=== PATIENT | female | born 2000 | race Caucasian/White ===

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

== ENCOUNTER 2020-05-11 16:54 | Outpatient (REF) | payer BC, SELFPAY ==
[2020-05-12 21:53] LABS: COVID-19 RT-PCR Result NEGATIVE (Negative)
== END 2020-05-11 17:14 ==
LOC: NCHCN 16:54
PROVIDERS: PCP Internal Medicine; Visit Provider Nurse Practitioner Family
DX: J34.89 Other specified disorders of nose and nasal sinuses (principal)
CPT/HCPCS: U0003

== ENCOUNTER 2020-05-21 01:21 | Outpatient (CLI) | payer BC, SELFPAY ==
[2020-05-21 11:14] LABS: Abs Immature Grans 0.03 10^3/uL (0.0-0.06); Absolute Basophil Count 0.03 10^3/uL (0.0-0.2); Absolute Eosinophil Count 0.04 10^3/uL (0.0-0.7); Absolute Lymphocyte Count 2.03 10^3/uL (1.2-3.4); Absolute Monocyte Count 0.45 10^3/uL (0.1-0.8); Basophils % 0.3; Eosinophils % 0.4; HCT 39.6 % (36.0-46.0); Immature Grans % 0.3; Lymphocytes % 22.6; MCH 29.8 pg (27.0-33.0); MCHC 32.8 % (32.0-36.0); MCV 90.8 fL (80-95); MPV 10.4 fL (8.0-11.0); Neutrophils % 71.4; Nucleated RBC 0 %; Platelet Count 296 10^3/uL (130-400); RBC 4.36 10^6/uL (3.93-5.22); RDW 12.4 % (11.7-14.6); RDW-SD 41.1 fL; WBC 8.98 10^3/uL (4.4-10.8)
[2020-05-21 11:21] LABS: Glucose,1 Hr (Glucola) 93 mg/dL (80-140)
[2020-05-21 12:26] LABS: TSH (W/Ref FT4) 0.56 uIU/mL (0.36-3.74)
[2020-05-23 14:52] LABS: Syphilis Total Ab w/Reflex Nonreactive (Nonreactive)
[2020-05-24 10:03] LABS: Hepatitis B Surface Ag Negative (Negative)
[2020-05-24 11:03] LABS: Hepatitis C Ab w Rflx HCV PCR Negative (Negative)
[2020-05-24 11:08] LABS: HIV-1/2 Ag & Ab Screen Negative (Negative)
[2020-05-24 11:37] LABS: Varicella IgG Antibody Positive (See Note)
[2020-05-24 11:43] LABS: Rubella IgG Ab (UVM) Positive (See Note)
== END 2020-05-21 01:41 ==
PROVIDERS: PCP Internal Medicine; Visit Provider Advanced Practice Midwife
DX: Z34.91 Encounter for supervision of normal pregnancy, unspecified, first trimester (principal); Z11.4 Encounter for screening for human immunodeficiency virus [HIV]; Z11.59 Encounter for screening for other viral diseases; Z01.84 Encounter for antibody response examination
CPT/HCPCS: 36415; 80307; 82950; 86787; 86803; 86850; 86900; 86901; 87340; 87389; 87491; 87591; 84443; 85025; 86762; 86780; 87086

== ENCOUNTER 2020-05-21 18:33 | Outpatient (REF) | payer BC, SELFPAY ==
[2020-05-21 17:33] LABS: *AMPHETAMINES SCREEN URINE Negative (Negative); *BARBITURATES SCREEN URINE Negative (Negative); *BENZODIAZEPINES SCREEN URINE Negative (Negative); Cannabinoids THC Negative (Negative); Cocaine Screen,Urine Negative (Negative); METHADONE URINE SCREEN Negative (Negative); OPIATES URINE SCREEN Negative (Negative)
[2020-05-21 17:40] LABS: Tricyclic Antidepressants Negative (Negative)
[2020-05-24 14:26] LABS: GC Result Negative (Negative)
[2020-05-24 16:47] LABS: Chlamydia Result Positive (Negative)
[2020-05-27 13:48] LABS: Buprenorphine Negative; Norbuprenorphine Negative
== END 2020-05-21 18:53 ==
LOC: LBN 18:33
PROVIDERS: PCP Internal Medicine; Visit Provider Advanced Practice Midwife
DX: Z34.91 Encounter for supervision of normal pregnancy, unspecified, first trimester (principal); Z11.3 Encounter for screening for infections with a predominantly sexual mode of transmission
CPT/HCPCS: 80307; 87491; 87591; 87086

== ENCOUNTER 2020-07-06 00:46 | Emergency (ER) | payer BC, SELFPAY ==
[2020-07-06] VITALS (12 sets, daily range): BP systolic 101–115; BP diastolic 55–72; PULSE 70–84; RESP 18; TEMP 36.6; O2SAT 97–100
--- NOTE | 2020-07-06 01:02 | W.ED.GENAD ---
Discharge Plan Disposition Patient Disposition: HOME Condition: Good Discharge Details Clinical Impression: Acute dehydration, Nausea & vomiting, Headache Primary Care Provider: Ananda Sterling ED Provider: Juan Uriostegui Home Meds and New Rx's Prescriptions: New doxylamine-pyridoxine (vit B6) 10-10 mg tablet,delayed release (DR/EC) 1 tab PO BID Qty: 30 RF: 0 Continued prenat.vits,melani,[id number]-gqpmx Tablet 1 tab PO DAILY RF: 0 Discharge Instructions Instructions: Hyperemesis Gravidarum (ED), General Headache (ED) Additional Instructions: At this time your work-up is reassuring. You have been rehydrated with the IV fluids. Please avoid ibuprofen during your . Maximum dose of Tylenol is 1000 mg every 6 hours. Tylenol is a safer alternative to ibuprofen during . Please drink plenty of fluids. Take the doxylamine/pyridoxine to help with your nausea and vomiting. I suspect that your nausea and vomiting is secondary to your , and the dehydration from this led to your headache. Please follow-up closely with your OB specialist. If you notice any worsening of your symptoms, or any new symptoms such as vomiting, diarrhea, fever, chills, shortness of breath, chest pain, numbness, weakness, or fainting , please return immediately to the emergency department for reevaluation. Please follow up with your primary care provider as soon as possible for reassessment and reevaluation. As always, it was a pleasure participating in your medical care today. Referrals: Jossy Flores CNM [[facility] NURSE DATA ENGINEER] - Ananda Sterling MD [Primary Care Provider] - Medical Decision Making This is a pleasant 19-year-old female with a past medical history of pseudotumor cerebri, chronic migraines, who is currently 17 weeks who presents today for evaluation of headache, vomiting. Patient states that for the past 2 months she has had regular vomiting every day during this stage of the . She states that over the last 2 weeks she has had a mild chronic headache, felt similar to her previous headaches however it is progressively gotten worse with her vomiting and lack of fluid intake. She states that her work environment notably worsens it as she is on third shift, she is often subject to loud noises and bright lights, all of which notably worse with her headache. Pain is described as aching pain in the front and temporal region. She denies any neck pain or posterior pain. She denies any vision changes, numbness tingling or weakness. She denies any hematemesis. She did take ibuprofen prior to coming in and this did help her headache. No other complaints at this time. No other modifying factors. The patient denies any headache red flags of worst headache of life, thunderclap headache, neck pain, fever, chills, concerning family history of polycystic kidney disease, Marfan syndrome, Todd-Danlos syndrome, abdominal aortic aneurysm, aortic dissection, or intracranial aneurysm. Physical exam is notably unremarkable. No evidence of neurologic deficit, meningeal signs, or other concerning etiology. Abdomen is nontender nondistended. Mucous membranes are notably dry. Ultrasound of the eyes shows no evidence of papilledema. Symptoms are likely secondary to vomiting secondary to , leading to exacerbation of her chronic migraine condition. We will rehydrate, give Tylenol and Compazine, Benadryl, monitor closely and reassess. I also discussed with her the importance of avoiding ibuprofen during this stage of . 2:21 AM Laboratory work-up is returned and is unremarkable and otherwise reassuring. Electrolytes normal, lipase normal. After after medication patient has near complete resolution of her symptoms, feels well and would like to go home. P.o. trial was given and she tolerated this well with no vomiting. Repeat neurologic exam is unremarkable. Bedside ultrasound shows normal optic nerve, symptoms inconsistent with significantly elevated intracranial pressures. No papilledema that I can appreciate at this time. Patient will be discharged home with pyridoxine/doxylamine prescription. Recommend continued fluids at home. I did discuss with her restarting her acetazolamide if she has any return of her headache even with good vomiting control and good fluid intake. Recommend close follow-up with her OB specialist. Discussed red flags which to return. I have extensively reviewed the treatment plan and discharge instructions with the patient. I have addressed all patient concerns at this time. The patient was made aware of what symptoms to monitor for that would warrant a return to the emergency department. Discussed the plan with the patient, they demonstrate verbal understanding and agreement with our assessment and plan at this time. The documentation in this chart was dictated using [employer] dictation software. Please excuse any dictation errors. Ocular US Exam type: diagnostic\par Indication for exam: vision complaint Views obtained: Eye transverse and longitudinal Findings and interpretations: all views were adequate. Retinal contour was normal. Vitreous body was anechoic. Lens was well positioned. No evidence of lens dislocation or retinal detachment. Optic nerve was measured and found to be less than 5mm. No evidence of papilledema The patient tolerated the procedure well and there were no complications. HPI General Date/Time Provider Initiated Documentation: 07/06/20 00:47. HPI Narrative: This is a pleasant 19-year-old female with a past medical history of pseudotumor cerebri, chronic migraines, who is currently 17 weeks who presents today for evaluation of headache, vomiting. Patient states that for the past 2 months she has had regular vomiting every day during this stage of the . She states that over the last 2 weeks she has had a mild chronic headache, felt similar to her previous headaches however it is progressively gotten worse with her vomiting and lack of fluid intake. She states that her work environment notably worsens it as she is on third shift, she is often subject to loud noises and bright lights, all of which notably worse with her headache. Pain is described as aching pain in the front and temporal region. She denies any neck pain or posterior pain. She denies any vision changes, numbness tingling or weakness. She denies any hematemesis. She did take ibuprofen prior to coming in and this did help her headache. No other complaints at this time. No other modifying factors. The patient denies any headache red flags of worst headache of life, thunderclap headache, neck pain, fever, chills, concerning family history of polycystic kidney disease, Marfan syndrome, Todd-Danlos syndrome, abdominal aortic aneurysm, aortic dissection, or intracranial aneurysm. Related Data Home Medications Medication Instructions Recorded Confirmed prenat.vits,melani,[id number]-hmor-xfroc 1 tab PO DAILY 05/06/20 07/06/20 doxylamine-pyridoxine (vit B6) 1 tab PO BID #30 tab 07/06/20 Previous Rx's Medication Instructions Recorded doxylamine-pyridoxine (vit B6) 1 tab PO BID #30 tab 07/06/20 Allergies Allergy/AdvReac Type Severity Reaction Status Date / Time No Known Allergies Allergy Verified 07/06/20 01:05 General CHATO: 4 Review of Systems All systems reviewed & are unremarkable except as noted in HPI and below PFSH Medical History Idiopathic intracranial hypertension Stopped Acetazolamide (Diamox) with +UPT. H/A is sx of ICH. Migraine headache without aura Obesity Surgical History Hx of tonsillectomy Family History Father Well adult Mother Well adult Sister IIH (idiopathic intracranial hypertension) Social History Smoking/Tobacco Use Status: Never Smoking risk assessment performed?: Yes Alcohol Intake: never Drug use: Never Household members: family and other Details: 04/2020.BF Hoopa. together 3mo prior to . Number of Children: 0 Education Level: high school current occupation: Lived in [place] x1yr. Returned a few months ago. Pets and animals: Yes Pets and animals: dog(s) What is your relationship status?: never Panel score (0-1 are the most socially isolated patients): 0 What type of physical activity do you participate in: none Seatbelt use: always Do you feel safe at home: Yes Do you feel safe in your relationship?: Yes History History 1 Para Hx # Term Pregnancies Multiple births Hx # Pregnancies Ectopic pregnancies AB induced Hx Number of Living Children AB spontaneous Exam Narrative Exam Narrative: 1.Const: Well-nourished, Well-developed, appearing stated age 2.Eyes: PERRL, no conjunctival injection, and symmetrical lids. 3.ENT: Atraumatic external nose and ears. Notably dry MM. Neck: Symmetric, trachea midline, No thyromegaly. Patient demonstrates good movement of cervical neck. There is no nuchal rigidity, no nuchal tenderness. Patient is able to flex the neck without any difficulty or significant pain. Negative Kernig's and Brudzinski sign. 4.CVS: +S1/S2, No murmurs or gallops. Peripheral pulses 2+ and equal in all extremities. Brisk capillary refill in all extremities. 5.RESP: Unlabored respiratory effort. Clear to auscultation bilaterally. No wheezes rales or rhonchi 6.GI: Soft, Nontender/Nondistended, No hepatosplenomegaly. No guarding or rebound. 7.MSK: Normocephalic/Atraumatic, Extremities w/o deformity or ttp No cyanosis or clubbing, Normal movement of all extremities 8.Skin: Warm, Dry. No rashes or lesions. 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 Sensation grossly intact, no focal neurologic deficits. All 6 cardinal planes of vision are fully intact. No evidence of rotatory or vertical nystagmus. The patient demonstrated a normal hqmxit-wbkv-judmhi, good dexterity. There was no evidence of dysdiadochokinesia. Patient was able to ambulate without difficulty. There was no wide-based gait. Romberg testing was normal. Ccej-rd-mxbw testing was normal. Sensation was intact bilaterally as well as muscle strength bilaterally for all extremities. Patient was able to verbalize butter cup with no slurring, or miss pronunciation. 10.Psych: (AAO) x3. Appropriate mood and affect
[2020-07-06 01:16] LABS: Abs Immature Grans 0.03 10^3/uL (0.0-0.06); Absolute Basophil Count 0.02 10^3/uL (0.0-0.2); Absolute Monocyte Count 0.61 10^3/uL (0.1-0.8); Absolute Neutrophil Count 8.27 10^3/uL (1.2-6.7); Basophils % 0.2; Eosinophils % 0.6; HCT 35.7 % (36.0-46.0); Immature Grans % 0.3; Lymphocytes % 17.4; MCH 30.2 pg (27.0-33.0); MCHC 33.6 % (32.0-36.0); MCV 89.9 fL (80-95); Monocytes % 5.6; Neutrophils % 75.9; Nucleated RBC 0 %; Platelet Count 242 10^3/uL (130-400); RBC 3.97 10^6/uL (3.93-5.22); RDW-SD 42.8 fL; WBC 10.89 10^3/uL (4.4-10.8)
[2020-07-06] MEDS: Normal Saline 1,000 ML 1000 ML IV (01:17)
[2020-07-06 01:18] LABS: Absolute Eosinophil Count 0.07 10^3/uL (0.0-0.7); Absolute Lymphocyte Count 1.89 10^3/uL (1.2-3.4)
[2020-07-06] MEDS: diphenhydrAMINE 50 MG/ML VIAL 25 MG IVP (01:18)
[2020-07-06] MEDS: Prochlorperazine 10 MG/2 ML VIAL IVP (01:20)
[2020-07-06] MEDS: ACETAMINOPHEN 1,000 MG/100 ML BTL 400 MG IVPB (01:23)
[2020-07-06 01:30] LABS: ALT 32 U/L (14-59); AST 12 U/L (15-37); Alkaline Phosphatase 56 U/L (46-116); Anion Gap 11.7 mmol/L (3-11); BUN 8 mg/dL (7-18); Bilirubin, Total 0.2 mg/dL (0.2-1.0); CO2 22.3 mmol/L (21.0-32.0); CREATININE 0.5 mg/dL (0.55-1.02); Calcium 8.8 mg/dL (8.5-10.1); Chloride 103 mmol/L (98-107); Glucose 93 mg/dL (74-106); Lipase 79 U/L (73-393); Potassium 3.6 mmol/L (3.5-5.1); Sodium 137 mmol/L (136-145); Total Protein 7.1 g/dL (6.4-8.2)
== END 2020-07-06 02:35 | disposition home or self-care (01) ==
PROVIDERS: Emergency Provider Student in an Organized Health Care Education/Training Program; PCP Internal Medicine
DX: O99.352 Diseases of the nervous system complicating pregnancy, second trimester (principal); O21.1 Hyperemesis gravidarum with metabolic disturbance; Z3A.17 17 weeks gestation of pregnancy
CPT/HCPCS: 36415; 80053; 83690; 96361; 96365; 96375; 99284; 85025; J0131; J0780; J1200

== ENCOUNTER 2020-07-16 03:38 | Outpatient (CLI) | payer BC, SELFPAY ==
--- NOTE | 2020-07-16 06:45 | DI.US_ITS ---
EXAM: US OB 2-3 TRIMESTER CLINICAL HISTORY: ,z34.90. TECHNIQUE: Transabdominal obstetrical ultrasound performed. COMPARISON: No exams were available for comparison FINDINGS: Transabdominal obstetrical ultrasound performed. There is limited resolution of anatomy due to maternal body habitus. FINDINGS: Number of fetuses: One. position: Vertex. heart rate: 137 bpm. Placental grade: 1 Placental location: Posterior. No evidence of previa. BIOMETRIC DATA: BPD: 40 millimeters, 18+ 2 weeks HC: 152 millimeters, 18+ 1 weeks AC: 123 millimeters, 18+ 0 weeks FL: 26 millimeters, 18+ 0 weeks Cisterna Magna: 3.8 millimeters Cerebellum: 1.8 cm EFW: 221 grms 24 percentile Composite Age: 18+ 1 weeks EDC by US: 16 December 2020 Amniotic fluid : . Amount of fluid is visually within normal limits. ANATOMICAL SURVEY: Four-chambered heart: Unremarkable. LVOT: Unremarkable. RVOT: Unremarkable. Left-sided stomach: Unremarkable. urinary bladder: Unremarkable. Bilateral kidneys: Unremarkable. Three-vessel cord: Unremarkable. Cord insertion: Unremarkable. Umbilical artery velocity: Unremarkable. Posterior fossa:Unremarkable. ventricles: Unremarkable. nose: Unremarkable. lips: Unremarkable. palate: Unremarkable. spine: Unremarkable. Two arms and two legs: Unremarkable. IMPRESSION: 1. Single live intrauterine gestation measuring 18+ 1 weeks 2. Normal anatomic survey. Resolution of anatomy is somewhat limited due to maternal bod y habitus. DATA REPOSITORY:
--- NOTE | 2020-08-12 09:09 | ANES_ITS ---
Date of service: 08/12/20 Time of Service: 09:09 Anesthesia Note Report Anesthesia Note: Called [facility] Dr. Tapia to discuss Radha's upcoming delivery here at [facility]. Per his note on 06/04/20 she is a candidate for regional anesthesia techniques for delivery, which was confirmed again in this phone call. My main concern was in regards to the last paragraph of his note that discusses her potential upcoming move to [place] and his mentioning a tertiary care center for her delivery. He states that she does not need to deliver are a tertiary care facility, but if the smaller [facility] hospitals are uncomfortable with her than a tertiary care center would be reasonable. We will meet with her tomorrow to discuss delivery here at [facility].
== END 2020-07-16 03:58 ==
PROVIDERS: PCP Internal Medicine; Visit Provider Advanced Practice Midwife
DX: Z34.92 Encounter for supervision of normal pregnancy, unspecified, second trimester (principal)
CPT/HCPCS: 76805

== ENCOUNTER 2020-11-24 12:37 | Outpatient (REF) | payer BC, SELFPAY ==
[2020-11-24 13:55] LABS: *AMPHETAMINES SCREEN URINE Negative (Negative); *BARBITURATES SCREEN URINE Negative (Negative); *BENZODIAZEPINES SCREEN URINE Negative (Negative); Cannabinoids THC Negative (Negative); Cocaine Screen,Urine Negative (Negative); METHADONE URINE SCREEN Negative (Negative); OPIATES URINE SCREEN Negative (Negative)
[2020-11-24 14:01] LABS: Tricyclic Antidepressants Negative (Negative)
[2020-12-01 10:49] LABS: Buprenorphine Negative ng/mL (Cutoff: 5.0)
== END 2020-11-24 12:38 | disposition home or self-care (01) ==
LOC: LBN 12:37
PROVIDERS: PCP Internal Medicine; Visit Provider Obstetrics & Gynecology
DX: Z34.93 Encounter for supervision of normal pregnancy, unspecified, third trimester (principal); Z36.85 Encounter for antenatal screening for Streptococcus B; Z3A.37 37 weeks gestation of pregnancy
CPT/HCPCS: 80307; 87081

== ENCOUNTER 2020-11-24 12:40 | Outpatient (CLI) | payer BC, SELFPAY ==
[2020-11-24 13:06] LABS: Abs Immature Grans 0.07 10^3/uL (0.0-0.06); Absolute Basophil Count 0.02 10^3/uL (0.0-0.2); Absolute Eosinophil Count 0.06 10^3/uL (0.0-0.7); Absolute Neutrophil Count 9.24 10^3/uL (1.2-6.7); Basophils % 0.2; Eosinophils % 0.5; HGB 10.3 g/dL (11.2-15.7); Immature Grans % 0.6; Lymphocytes % 16.2; MCHC 31.2 % (32.0-36.0); MCV 89.7 fL (80-95); Monocytes % 7.5; Nucleated RBC 0 %; Platelet Count 264 10^3/uL (130-400); RBC 3.68 10^6/uL (3.93-5.22); RDW 14.1 % (11.7-14.6); RDW-SD 45.9 fL; WBC 12.32 10^3/uL (4.4-10.8)
[2020-11-24 13:07] LABS: Absolute Monocyte Count 0.92 10^3/uL (0.1-0.8)
[2020-11-24 13:23] LABS: Glucose,1 Hr (Glucola) 109 mg/dL (80-140)
[2020-11-24 13:28] LABS: ALT 17 U/L (14-59); AST 8 U/L (15-37); Albumin 2.4 g/dL (3.4-5.0); Alkaline Phosphatase 106 U/L (46-116); Anion Gap 10.1 mmol/L (3-11); BUN 6 mg/dL (7-18); Bilirubin, Total 0.1 mg/dL (0.2-1.0); CO2 23.9 mmol/L (21.0-32.0); CREATININE 0.4 mg/dL (0.55-1.02); Calcium 9.1 mg/dL (8.5-10.1); Chloride 105 mmol/L (98-107); Glucose 110 mg/dL (74-106); Potassium 3.7 mmol/L (3.5-5.1); Sodium 139 mmol/L (136-145); Total Protein 6.5 g/dL (6.4-8.2)
== END 2020-11-24 12:41 | disposition home or self-care (01) ==
LOC: LBO 12:40
PROVIDERS: PCP Internal Medicine; Visit Provider Obstetrics & Gynecology
DX: O09.33 Supervision of pregnancy with insufficient antenatal care, third trimester (principal); O26.893 Other specified pregnancy related conditions, third trimester; O36.013 Maternal care for anti-D [Rh] antibodies, third trimester; Z01.84 Encounter for antibody response examination; Z67.91 Unspecified blood type, Rh negative; Z3A.37 37 weeks gestation of pregnancy
CPT/HCPCS: 36415; 80053; 82950; 86850; 86900; 86901; 85025; 86870

== ENCOUNTER 2020-11-25 12:43 | Outpatient (CLI) | payer BC, SELFPAY ==
[2020-11-25 12:58] VITALS: BP 117/73; PULSE 86; TEMP 37.3
[2020-11-25 13:09] VITALS: BP 119/73; PULSE 86
--- NOTE | 2020-11-25 13:36 | W.OBNST ---
Date of service: 11/25/20 Time of Service: 13:36 NST Evaluation Reason for NST Reasons for Nonstress Test: GESTATIONAL HYPERTENSION Gestational Age Gestational Age in Weeks and Days: 37 Weeks and 2Days Test and Monitor Explained Test/Monitor Explained: Test Explained, Monitor Explained and Patient Verbalized Understanding Vital Signs Blood Pressure: 117/73 Pulse: 86 Temperature: 99.1 F NST Information Date on Monitor: 11/25/20 Time on Monitor: 12:50 Date off Monitor: 11/25/20 Time off Monitor: 13:20 Total Time on Monitor: 30 NST Interventions: Reposition Patient NST Evaluation Patient States Movement: Present FHR Baseline: 140 Variability: Moderate 6-25 bpm Accelerations: 15x15 Decelerations: None NST Results: Reactive Note NST Note Note: Patient seen for testing with nonstress test. She returned to our care at 37 weeks and 1 day yesterday in the office. Laboratory studies performed are normal. She did have a mildly elevated blood pressure. Baby's been moving and active. Blood pressure is stable today. NST is reactive with a category 1 strip. She has follow-up ointment scheduled for ultrasound, ophthalmology visit, and referral has been made to maternal- medicine for possible delivery at [facility] Reviewed and Verified by: Laura Payton
[2020-11-25 13:37] VITALS: BP 117/73; PULSE 86; TEMP 37.3
== END 2020-11-25 13:25 | disposition home or self-care (01) ==
LOC: BCD 12:43 → OBS 12:49
PROVIDERS: PCP Internal Medicine; Visit Provider Obstetrics & Gynecology
DX: O13.3 Gestational [pregnancy-induced] hypertension without significant proteinuria, third trimester (principal); Z3A.37 37 weeks gestation of pregnancy
CPT/HCPCS: 59025

== ENCOUNTER 2020-11-29 01:27 | Outpatient (CLI) | payer BC, SELFPAY ==
--- NOTE | 2020-11-29 07:30 | DI.US_ITS ---
Exam(s) US OB WANDY WEIGHT EXAM: US OB WANDY WEIGHT CLINICAL HISTORY: Growth, WANDY, position,G93.2,Z34.90,o09.30. TECHNIQUE: Transabdominal obstetrical ultrasound was performed. COMPARISON: US US OB 2-3 TRIMESTER from 07/16/2020 FINDINGS: There is a single viable intrauterine gestation with cardiac activity identified-143 bpm The fetus is presently in cephalic position with the spine pointing anterior left.. Amniotic fluid: There is a normal amount of amniotic fluid with an WANDY of 16.2cm. Placental location: The placenta is posterior left, grade 2-3,with no evidence of placenta previa.The distance from cord insertion to the margin the placentas 5.[address] this at approximately 37 weeks and 6 days gestational age, implying SAI of December 14, 2020. BPD measures 38 weeks and 5 days HC measures 37 weeks and 5 days AC measures 36 weeks and 3 days FL measures 38 weeks and 2 days Estimated weight is 3166 gm-7 pound 0 ounce Fetus is at the 46th percentile on the Hadlock scale. IMPRESSION:: Viable 3rd trimester gestation, as described above. DATA REPOSITORY:
== END 2020-11-29 01:47 ==
PROVIDERS: PCP Internal Medicine; Visit Provider Obstetrics & Gynecology
DX: O09.33 Supervision of pregnancy with insufficient antenatal care, third trimester; O26.893 Other specified pregnancy related conditions, third trimester; G93.2 Benign intracranial hypertension; Z3A.37 37 weeks gestation of pregnancy
CPT/HCPCS: 76816

== ENCOUNTER 2021-08-23 15:52 | Outpatient (REF) | payer MEDICAID, SELFPAY ==
--- NOTE | 2021-08-23 15:15 | PAPFT_PTH ---
PATIENT: Radha Edmondson LOC: [facility] U#:[id number] AGE/SX: / ROOM: RE08/23/[address]: Josefina Myers MD : 2000 BED: DIS: 08/23/2021 SPEC #: [id number] RECD: 08/23/21 17:41 STATUS: MARY REQ #: [id number] JOVANY: 08/23/21 15:[address]: Josefina Myers DEPT: [facility] Cytology RECD BY: Lupe Awad ENTERED: 08/23/21 17:42 SP TYPE: PAPFT OTHR DR: Ananda Sterling Tissues: 1 - CX/ENDOCX FOR PAP SMEARS Procedures: PAP THIN PREP/UVM Screening Comments: [id number] (CHLAMYDIA/GC)
[2021-08-24 14:16] LABS: Chlamydia Result Negative (Negative); GC Result Negative (Negative)
== END 2021-08-23 15:53 | disposition home or self-care (01) ==
LOC: LBN 15:52
PROVIDERS: PCP Internal Medicine; Visit Provider Obstetrics & Gynecology
DX: Z11.3 Encounter for screening for infections with a predominantly sexual mode of transmission (principal); Z12.4 Encounter for screening for malignant neoplasm of cervix
CPT/HCPCS: 87491; 87591; 88142

== ENCOUNTER 2021-12-07 03:19 | Outpatient (CLI) | payer MEDICAID, SELFPAY ==
[2021-12-07 16:11] LABS: Kit/Specimen SENT
[2021-12-07 16:16] LABS: Glucose,1 Hr (Glucola) 109 mg/dL (80-140)
[2021-12-07 16:25] LABS: Abs Immature Grans 0.02 10^3/uL (0.0-0.06); Absolute Basophil Count 0.03 10^3/uL (0.0-0.2); Absolute Eosinophil Count 0.05 10^3/uL (0.0-0.7); Absolute Lymphocyte Count 1.51 10^3/uL (1.2-3.4); Absolute Monocyte Count 0.52 10^3/uL (0.1-0.8); Absolute Neutrophil Count 6.13 10^3/uL (1.2-6.7); Basophils % 0.4; Eosinophils % 0.6; HCT 36.7 % (36.0-46.0); HGB 12.2 g/dL (11.2-15.7); Immature Grans % 0.2; Lymphocytes % 18.3; MCH 27.8 pg (27.0-33.0); MCHC 33.2 % (32.0-36.0); MCV 84 fL (80-95); MPV 10.3 fL (8.0-11.0); Monocytes % 6.3; Neutrophils % 74.2; Platelet Count 262 10^3/uL (130-400); RBC 4.39 10^6/uL (3.93-5.22); RDW-SD 45.7 fL; WBC 8.26 10^3/uL (4.4-10.8)
[2021-12-07 19:40] LABS: *AMPHETAMINES SCREEN URINE Negative (Negative); *BARBITURATES SCREEN URINE Negative (Negative); *BENZODIAZEPINES SCREEN URINE Negative (Negative); Cannabinoids THC Negative (Negative); Cocaine Screen,Urine Negative (Negative); METHADONE URINE SCREEN Negative (Negative); OPIATES URINE SCREEN Negative (Negative)
[2021-12-07 19:41] LABS: Tricyclic Antidepressants Negative (Negative)
[2021-12-08 08:15] LABS: Hepatitis B Surface Ag Negative (Negative)
[2021-12-08 08:58] LABS: Hepatitis C Ab w Rflx HCV PCR Negative (Negative)
[2021-12-08 09:12] LABS: HIV-1/2 Ag & Ab Screen Negative (Negative)
[2021-12-08 10:56] LABS: Varicella IgG Antibody Positive (See Note)
[2021-12-08 11:00] LABS: Rubella IgG Ab (UVM) Positive (See Note)
[2021-12-08 19:08] LABS: Syphilis IgG w/Reflex Nonreactive (Nonreactive)
[2021-12-15 15:34] LABS: Buprenorphine Negative ng/mL (Cutoff: 5.0); Norbuprenorphine Negative ng/mL (Cutoff: 2.5)
[2021-12-16 16:24] LABS: Result Summary NEGATIVE; Specimen WB Whole Blood
== END 2021-12-07 03:20 | disposition home or self-care (01) ==
LOC: LBO 03:20
PROVIDERS: PCP Internal Medicine; Visit Provider Advanced Practice Midwife
DX: O99.351 Diseases of the nervous system complicating pregnancy, first trimester (principal); Z3A.11 11 weeks gestation of pregnancy; G93.2 Benign intracranial hypertension
CPT/HCPCS: 36415; 80307; 82950; 86787; 86803; 86850; 86900; 86901; 87340; 87389; 81220; 84443; 85025; 86762; 86780; 87086

== ENCOUNTER 2021-12-21 16:30 | Outpatient (REF) | payer MEDICAID, SELFPAY ==
[2021-12-23 15:25] LABS: Chlamydia Result Negative (Negative); GC Result Negative (Negative)
== END 2021-12-21 16:31 | disposition home or self-care (01) ==
LOC: LBN 16:30
PROVIDERS: PCP Internal Medicine; Visit Provider Obstetrics & Gynecology
DX: Z34.92 Encounter for supervision of normal pregnancy, unspecified, second trimester (principal)
CPT/HCPCS: 87491; 87591

== ENCOUNTER 2022-01-17 14:56 | Outpatient (CLI) | payer MEDICAID, SELFPAY ==
[2022-01-20 10:57] LABS: AFP 19.9 ng/mL; Cigarette smoking status non-Smoker; GA used in risk estimate Scan estimate; IVF Pregnancy No; Initial or repeat testing Initial testing; Insulin dependent diabetes No; Maternal Weight 310 lbs; Number of Fetuses 1; Prev Pregnancy w/NTD No; RECOMMENDED FOLLOW UP None.; Results Summary Normal risk
== END 2022-01-17 14:57 | disposition home or self-care (01) ==
LOC: LBO 14:57
PROVIDERS: PCP Internal Medicine; Visit Provider Obstetrics & Gynecology
DX: Z34.92 Encounter for supervision of normal pregnancy, unspecified, second trimester (principal)
CPT/HCPCS: 36415; 82105

== ENCOUNTER → 2022-03-31 01:06 | Outpatient (CLI) | payer MEDICAID, SELFPAY ==
--- NOTE | 2022-03-31 07:30 | DI.US_ITS ---
Exam(s) US OB WANDY WEIGHT EXAM: US OB WANDY WEIGHT CLINICAL HISTORY: growth and WANDY at 28 weeks,O93.2.z34.90,E66.01. COMPARISON: None TECHNIQUE: Transabdominal obstetrical ultrasound performed. FINDINGS: Sonographic images demonstrate a single intrauterine gestation in cephalic position. heart rate motion is Dopplered at: 144 bpm. Placenta: Posterior Biometric measurements correspond to 29 weeks 0 days and an EDC of 16 June 2022 Estimated weight 1433 grams which is above the 97th percentile. Amniotic fluid index: 19.7 cm. Largest pocket of fluid measures 7.5 cm. Amount of fluid is within n ormal limits. IMPRESSION: size and weight are measuring slightly above the expected range for dates. DATA REPOSITORY:
== END ==
PROVIDERS: PCP Internal Medicine; Visit Provider Advanced Practice Midwife
DX: Z34.92 Encounter for supervision of normal pregnancy, unspecified, second trimester
CPT/HCPCS: 76816

== ENCOUNTER 2022-04-07 01:39 | Outpatient (CLI) | payer MEDICAID, SELFPAY ==
[2022-04-07 12:10] LABS: Abs Immature Grans 0.05 10^3/uL (0.0-0.06); Absolute Basophil Count 0.02 10^3/uL (0.0-0.2); Absolute Eosinophil Count 0.08 10^3/uL (0.0-0.7); Absolute Monocyte Count 0.58 10^3/uL (0.1-0.8); Absolute Neutrophil Count 7.95 10^3/uL (1.2-6.7); Basophils % 0.2; Eosinophils % 0.7; HCT 34.1 % (36.0-46.0); Immature Grans % 0.5; Lymphocytes % 19.5; MCH 28.3 pg (27.0-33.0); MCHC 32.3 % (32.0-36.0); MCV 88 fL (80-95); MPV 10.2 fL (8.0-11.0); Monocytes % 5.4; Neutrophils % 73.7; Platelet Count 248 10^3/uL (130-400); RBC 3.89 10^6/uL (3.93-5.22); RDW 14.4 % (11.7-14.6); RDW-SD 45.7 fL; WBC 10.78 10^3/uL (4.4-10.8)
[2022-04-07 12:24] LABS: Glucose,1 Hr (Glucola) 129 mg/dL (80-140)
== END 2022-04-07 01:40 | disposition home or self-care (01) ==
LOC: LBO 01:39
PROVIDERS: PCP Internal Medicine; Visit Provider Obstetrics & Gynecology
DX: E66.01 Morbid (severe) obesity due to excess calories (principal); O26.893 Other specified pregnancy related conditions, third trimester; O99.213 Obesity complicating pregnancy, third trimester; Z67.91 Unspecified blood type, Rh negative
CPT/HCPCS: 36415; 82950; 86850; 90384; 85025

== ENCOUNTER → 2023-03-01 13:12 | Outpatient (CLI) | payer MEDICAID, SELFPAY ==
--- NOTE | 2023-03-01 | DI.RAD_ITS ---
Exam(s) XR KNEE RT 3V AP,LAT,MATT EXAM: XR KNEE RT 3V AP,LAT,MATT CLINICAL HISTORY: RT KNEE PAIN [id number] ? JOINT SPACE ABNORMALITY. TECHNIQUE: 2D digital imaging was performed of the right knee. Three views obtained. AP, lateral an d PA tunnel views were obtained. COMPARISON: No exams were available for comparison FINDINGS: BONES: No acute fracture is present. No bony destructive lesion is seen. There is a 7.7 x 5.4 cm lyti c lesion in the lateral femoral condyle of the right femur. It has well-circumscribed thinly sclerot ic borders. No pathologic fracture is seen. No periosteal reaction is identified. JOINTS: The knee is normally aligned. No joint effusion is seen. SOFT TISSUE: Normal. IMPRESSION: 1. No acute fracture or dislocation. No significant degenerative changes are seen in the knee. 2. 7.7 x 5.7 cm well-circumscribed lytic lesion in the lateral femoral condyle of the right femur. N o periosteal reaction or pathologic fracture is identified. The finding has benign features. CT and or MRI may be obtained for further evaluation. If there are prior for examinations, they may be sub mitted for comparison. An addendum will be issued at that time. DATA REPOSITORY: RADIATION DOSE DELIVERED:
== END ==
PROVIDERS: PCP Internal Medicine; Visit Provider Physician Assistant Medical
DX: M25.561 Pain in right knee (principal); M89.251 Other disorders of bone development and growth, right femur
CPT/HCPCS: 73562

== ENCOUNTER 2023-03-07 08:51 | Emergency (ER) | payer MEDICAID, SELFPAY ==
[2023-03-07] VITALS (12 sets, daily range): BP systolic 125–145; BP diastolic 68–101; PULSE 65–79; RESP 24; TEMP 36.8; O2SAT 94–100
--- NOTE | 2023-03-07 08:59 | W.ED.GENAD ---
Discharge Plan Discharge Details Chief Complaint: Orthopedic Clinical Impression: Pathological fracture of right femur Primary Care Provider: Ananda Sterling ED Provider: Juan Reynolds Home Meds and New Rx's Prescriptions: No Action No Known Home Meds Medical Decision Making This dictation utilizes [id number] dictation software and may contain unedited grammatical errors. 22 y/o F presents to ED today with a chief complaint of trip & fall, acute R knee pain, chronic pain and instability noted. Onset and characteristics include exquisite pain with any movement, no obvious deformity, NV intact distally. Patient has relevant history of morbid obesity. Family and social history: noncontributory. Pertinent exam findings / vital signs include R knee exquisite tenderness, no hip or calf/foot pain, NV intact distal R LE, no obvious lateral displacement of patella- difficult with body habitus to discern. Differential / pathologies of concern include patellar dislocation, fracture, internal ligamentous knee injury, knee sprain/strain. Diagnostic studies of: -XR R Knee - shows fracture in her known tumor, spoke with our Orthopaedist Dr. uF who recommends MRI R Knee w & w/o Contrast, consult with Ortho/Oncology- possible Giant Cell Tumor -hCG qual. serum, not -MRI R Knee w & w/o contrast - discussed with Dr. Fu, pathologic fracture of distal femur through tumor, recommends [facility] transfer for management / surgery. Interventions of: -1g IV APAP, 15mg IV Toradol, 50mcg IV fentanyl, 4mg IV Zofran. 1mg IV Dilaudid at hour 2 pre-MRI. -4mg ondansetron q8hr PRN, 1000mg APAP q6hr PRN, 10mg ketorlac q6hr PRN, 0.5mg hydromorphone q4hr PRN ordered while awaiting transfer decision. ED Course: Patient required multiple rounds of analgesia here in the department and received 1 g of IV Tylenol as well as Toradol, fentanyl prior to x-ray and Zofran. She was still having significant pain and was given 1 mg of Dilaudid prior to MRI. She then was resting comfortably as long as the knee was immobilized. I did order knee immobilizer. She states that she will not be able to road test with crutches. Spoke with Dr. Salas who recommends transfer to [facility] for orthopedic oncology admission, patient was comfortable with this disposition. *[facility] has no capacity, did call [facility] transfer center at [phone], awaiting callback. Dr Fu is in communication with Dr. Pathak of [facility] Ortho who could see the patient as outpatient, but she is in too much pain to even attempt crutching and does not feel she is safe to go home. Other options would include [facility], or any [facility] Patient signed out to oncoming provider Karis Mueller at shift-change. Holding PO intake until definitive surgical decision made. Patient has requested meals multiple times. Findings consistent with pathologic fracture of distal right femur involving her known bone lesion- likely giant cell tumor, otherwise no NV compromise in R LE. Disposition of Pathologic Fracture of Right Femur. 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 Patient verbalized understanding of the plan and return to ED criteria and engaged in shared decision making. Medical Records Medical records reviewed: Yes I reviewed the patient's medical records. Imaging Data Radiologic Study: Imaging: X-Ray Radiologist's impression: XR KNEE RT 3V AP,LAT,MATT EXAM: XR KNEE RT 3V AP,LAT,MATT CLINICAL HISTORY: fall, instability, R knee exquisite tenderness. TECHNIQUE: 2D digital imaging was performed of the right knee. Three views obtained. AP, lateral and PA tunnel views were obtained. COMPARISON: No exams were available for comparison FINDINGS: BONES: No acute fracture is present. There is again seen a lytic lesion involving the lateral femoral condyle. There is destruction of the cortex seen both superiorly and laterally on the AP view suspicious for new pathologic fracture. JOINTS: The knee is normally aligned. There is also now a joint effusion present. SOFT TISSUE: Normal. IMPRESSION: 1. Pathologic fracture through the lytic lesion involving the lateral femoral condyle. 2. Moderate joint effusion. 3. Lytic distal femoral lesion as described before. Differential considerations include aneurysmal bone cyst, giant cell tumor or simple bone cyst among other etiologies. CT and MRI should be considered for further evaluation. Radiologic Study #2: Imaging: MRI Radiologist's impression: MR LOWER JOINT RT WO/W EXAM: MR LOWER JOINT RT WO/W CLINICAL HISTORY: R knee - tumor fracture. TECHNIQUE: Multiplanar multisequence MRI of the right knee was performed. CONTRAST MATERIAL: IV Contrast: 20 mL of Dotarem contrast administered. COMPARISON: CR XR KNEE RT 3V AP,LAT,MATT from 03/01/2023 CR XR KNEE RT 3V AP,LAT,MATT from 03/07/2023 FINDINGS: BONES/JOINTS: There is a 5.1 AP by 4.5 transverse by 6.6 craniocaudad cm well-circumscribed lesion in the lateral femoral condyle. It is intermediate signal on the T2 weighted images and hypointense on the T1 weighted images. No fluid fluid levels are identified. There is no associated soft tissue mass. There is heterogeneous enhancement following contrast administration. It has a longitudinal orientation and extends into the intercondylar notch. The fracture is comminuted, particularly anteriorly and inferiorly. There is a large hemarthrosis. No other osseous lesions are seen. No other fractures appreciated. MUSCULOTENDINOUS STRUCTURES: The muscles show normal signal and size. No muscular fatty atrophy. SOFT TISSUES: Unremarkable. OTHER FINDINGS: None. IMPRESSION: 1. 5.1 x 4.5 x 6.6 cm well-circumscribed lesion in the distal lateral femoral condyle. Differential considerations include giant cell tumor or bone cyst. Neoplastic process is felt to be less likely. 2. Pathologic fracture involving the distal femur through the bony lesion extending inferiorly into the intercondylar notch. 3. Hemarthrosis. HPI General Date/Time Provider Initiated Documentation: 03/07/23 08:55. HPI Narrative: 22 year-old female presents to ED today by [facility] with a chief complaint of R knee pain, tripped and knee gave out with onset 40 minutes prior to arrival. Patient has been having chronic knee pain and instability, had orthopaedics appointment today for a known tumor in her R knee that needs elective surgery likely through [facility] Oncology, when she fell and couldn't move it without severe pain. Quality described as sharp pain with any movement, no radiation to skin changes distal, numbness/tingling, calf pain, hip pain, obvious deformity. Severity is described as 20/10. Palliating factors include keeping it still. Provoking factors include nothing specific. Events leading up to the incident/Associated Symptoms: Patient denies any history of patellar dislocation. Patient not anticoagulated. Related Data Home Medications Medication Instructions Recorded Confirmed Unknown [No Known Home Meds] 03/07/23 03/07/23 Allergies Allergy/AdvReac Type Severity Reaction Status Date / Time No Known Allergies Allergy Verified 06/12/22 15:10 General Stated Complaint: Orthopedic CHATO: 3 Review of Systems All systems reviewed & are unremarkable except as noted in HPI and below PFSH All Active Problems (Updated 03/07/23 @ 13:28 by CURTIS Valiente) Pathological fracture of right femur (Acute) Pathological fracture, right femur, initial encounter for fracture (Acute) Rh negative state in antepartum period (Acute) (Acute) Morbid obesity (Acute) Migraine headache without aura (Acute) Idiopathic intracranial hypertension (Acute) Stopped Acetazolamide (Diamox) with +UPT. H/A is sx of ICH. Medical History (Updated 03/07/23 @ 13:28 by CURTIS Valiente) History of miscarriage Surgical History Hx of tonsillectomy Family History Father Well adult Mother Well adult Sister IIH (idiopathic intracranial hypertension) Social History (Updated 07/19/21 @ 14:18 by Josefina Myers MD) Smoking/Tobacco Use Status: Current every day Tobacco Type: smokeless tobacco Quit status: considering quitting Counseling given: provider counseling Smoking risk assessment performed?: Yes Alcohol Intake: never Drug use: Never Household members: family and other Details: 04/2020.BF Govind. together 3mo prior to . Not involved. Housing: other Details: lives in [facility]. Friend Rod moved with her from [place] and will be roomate Number of Children: 1 Education Level: high school current occupation: Not employed. Friend Rod is working at [employer] and will support them. Pets and animals: Yes Pets and animals: dog(s) What is your relationship status?: never Panel score (0-1 are the most socially isolated patients): 0 What type of physical activity do you participate in: none Seatbelt use: always Do you feel safe at home: Yes Do you feel safe in your relationship?: Yes History History 4 Para 1 Hx # Term Pregnancies 1 Multiple births 0 Hx # Pregnancies 0 Ectopic pregnancies 0 AB induced 0 Hx Number of Living Children 1 AB spontaneous 2 Past Pregnancies Del. Date GA/Weeks # Preg Succ Route Wgt Sex Labor Lgth Anesthesia Location Prov Complic 12/08/20 39 No Yes vaginal 3333.904 g Female 12 hrs [facility] due to cranial HTN 07/15/21 Delivery Date: 12/08/20 Last Updated by: Yina Tello IOL, nml , some stitches, tried unsuccessfully to breastfeed [place] Delivery Date: 07/15/21 Last Updated by: Josefina Myers M.D. early SAB, +home test, then bleeding/clots. Also had early miscarriage in her teens. Exam Narrative Exam Narrative: GENERAL APPEARANCE: Morbid obesity, non-toxic, awake and alert, atraumatic, no acute distress. SKIN: Warm, pink, dry, intact, without rashes/lesions/ulcerations. HEAD: Normocephalic, atraumatic, normal hair distribution for gender/age. EYES: Pupils PERRLA, EOMs intact without nystagmus, normal conjunctiva, no exudates on lids/lashes. ENT: Nares patent, no circumoral cyanosis, no facial swelling NECK: Supple, trachea midline, painless cervical ROM. LUNGS/CHEST: Non-labored respirations, normal A/P diameter, symmetrical expansion, no chest wall deformity HEART (CV/PV): Regular rate, R dorsalis pedis pulse 2+, no peripheral edema, no JVD. ABDOMEN: Soft, non-distended, no guarding. MSK: Normal ROM, no swelling/deformity to bilateral UEs or LEs, moving all extremities without weakness, no cyanosis, spine midline without tenderness, normal curvature. R LE: Diffuse exquisite tenderness to the right knee without overt effusion though difficult to tell with body habitus, no obvious lateral displacement of patella, no ecchymosis, neurovascularly intact in the right distal lower extremity, no hip tenderness at the ischial crest, femur stable, tibia-fibula kyle, special tests of the knee not performed due to exquisite pain until medicated and imaged - [ ]. NEURO: Mental Status AAOx4 - alert to person, place, time, events No facial droop, no forehead involvement. Motor: No focal weakness - strength 5/5 in bilateral UEs and LEs, proximal and distal, symmetric. Sensory: sensation intact to light touch globally. Gait NT PSYCH: euthymic, cooperative, pleasant, appropriate speech Course Vital Signs Vital signs: Vital Signs Temperature 36.8 C 03/07/23 08:55 Pulse 65 03/07/23 08:55 Respiratory Rate 24 03/07/23 08:55 Blood Pressure 145/101 H 03/07/23 08:55 Pulse Oximetry 99 03/07/23 08:55 Temperature 36.8 C 03/07/23 08:55 Temperature Source Oral 03/07/23 08:55 Pulse 65 03/07/23 08:55 Respiratory Rate 24 03/07/23 08:55 Blood Pressure 145/101 H 03/07/23 08:55 Blood Pressure Position Supine 03/07/23 08:55 Pulse Oximetry 99 03/07/23 08:55 Oxygen Delivery Method Room Air 03/07/23 08:55 Oxygen Flow Rate 0 03/07/23 08:55 Pain Level 10 03/07/23 08:55
--- NOTE | 2023-03-07 09:00 | DI.RAD_ITS ---
Exam(s) XR KNEE RT 3V AP,LAT,MATT EXAM: XR KNEE RT 3V AP,LAT,MATT CLINICAL HISTORY: fall, instability, R knee exquisite tenderness. TECHNIQUE: 2D digital imaging was performed of the right knee. Three views obtained. AP, lateral an d PA tunnel views were obtained. COMPARISON: No exams were available for comparison FINDINGS: BONES: No acute fracture is present. There is again seen a lytic lesion involving the lateral femoral condyle. There is destruction of the cortex seen both superiorly and laterally on the AP view suspi cious for new pathologic fracture. JOINTS: The knee is normally aligned. There is also now a joint effusion present. SOFT TISSUE: Normal. IMPRESSION: 1. Pathologic fracture through the lytic lesion involving the lateral femoral condyle. 2. Moderate joint effusion. 3. Lytic distal femoral lesion as described before. Differential considerations include aneurysmal b one cyst, giant cell tumor or simple bone cyst among other etiologies. CT and MRI should be consider ed for further evaluation. DATA REPOSITORY: RADIATION DOSE DELIVERED:
[2023-03-07] MEDS: ACETAMINOPHEN 1,000 MG/100 ML BTL 400 MG IVPB (09:10)
[2023-03-07] MEDS: Ondansetron 4 MG/2 ML VIAL IVP (09:10)
[2023-03-07] MEDS: fentaNYL 100 MCG/2 ML VIAL 50 MCG IVP (09:10)
[2023-03-07] MEDS: Ketorolac 15 MG/ML VIAL IVP ×2 (09:10→19:17)
--- NOTE | 2023-03-07 09:45 | DI.MRI_ITS ---
Exam(s) MR LOWER JOINT RT WO/W EXAM: MR LOWER JOINT RT WO/W CLINICAL HISTORY: R knee - tumor fracture. TECHNIQUE: Multiplanar multisequence MRI of the right knee was performed. CONTRAST MATERIAL: IV Contrast: 20 mL of Dotarem contrast administered. COMPARISON: CR XR KNEE RT 3V AP,LAT,MATT from 03/01/2023 CR XR KNEE RT 3V AP,LAT,MATT from 03/07/2023 FINDINGS: BONES/JOINTS: There is a 5.1 AP by 4.5 transverse by 6.6 craniocaudad cm well-circumscribed lesion in the lateral femoral condyle. It is intermediate signal on the T2 weighted images and hypointense on the T1 weighted images. No fluid fluid levels are identified. There is no associated soft tissue m ass. There is heterogeneous enhancement following contrast administration. It has a longitudinal or ientation and extends into the intercondylar notch. The fracture is comminuted, particularly anterio rly and inferiorly. There is a large hemarthrosis. No other osseous lesions are seen. No other fra ctures appreciated. MUSCULOTENDINOUS STRUCTURES: The muscles show normal signal and size. No muscular fatty atrophy. SOFT TISSUES: Unremarkable. OTHER FINDINGS: None. IMPRESSION: 1. 5.1 x 4.5 x 6.6 cm well-circumscribed lesion in the distal lateral femoral condyle. Differential considerations include giant cell tumor or bone cyst. Neoplastic process is felt to be less likely. 2. Pathologic fracture involving the distal femur through the bony lesion extending inferiorly into t he intercondylar notch. 3. Hemarthrosis. DATA REPOSITORY:
[2023-03-07] MEDS: HYDROmorphone 2 MG/ML SYR 1 MG IVP (10:10)
--- NOTE | 2023-03-07 10:40 | NUR.NOTE ---
pt given dilaudid 1 mg. sats dropped to 79% RA while sleeping. O2 via n/c applied at 1 LPM, sats now remaining at 95 and above. Provider made aware.
[2023-03-07 10:49] LABS: HCG Qual (Serum) Negative
[2023-03-07] MEDS: Normal Saline Flush 10 ML SYR IVP (11:54)
[2023-03-07] MEDS: Gadoterate meglumine 20 ML SYRINGE IVP (11:56)
[2023-03-07] MEDS: HYDROmorphone 2 MG/ML SYR 0.5 MG IVP ×2 (14:23→23:22)
[2023-03-07] MEDS: Acetaminophen 500 MG TAB 1000 MG PO (15:40)
[2023-03-07] MEDS: Ketorolac 10 MG TAB PO (15:41)
--- NOTE | 2023-03-07 16:15 | W.ORTHOCONSU ---
Date of service: 03/07/23 Time of Service: 16:15 Assessment and Plan Assessment and plan (1) Pathological fracture, right femur, initial encounter for fracture: Status: Acute Assessment and plan: 22-year-old female with rRght distal femur pathologic fracture through large lytic lesion in the lateral femoral condyle Reviewed x-rays, recommended MRI with and without contrast, reviewed these images, and discussed with the emergency room provider as well as orthopedic oncologist Dr. Tolu Pathak at [facility]. Imaging findings concerning for malignant tumor. Patient will need biopsy and subsequent treatments for tumor and fracture. These should be done at a tertiary care facility like [facility], but unfortunately they are at capacity unable to accept the patient for transfer. Recommend multimodal pain control, long-leg knee immobilizer, and pursue transfer options elsewhere in the region as the patient is unable to safely mobilize for outpatient management. Could consider long-leg splint immobilization if additional stabilization is needed, but will be limited by large soft tissue envelope and increased weight of any splint applied. Recommend transfer for inpatient management need for expedited treatment given fracture PFSH All Active Problems (Updated 03/07/23 @ 16:15 by Maximo Salas MD) Pathological fracture of right femur (Acute) Pathological fracture, right femur, initial encounter for fracture (Acute 03/07/23) Rh negative state in antepartum period (Acute) (Acute) Morbid obesity (Acute) Migraine headache without aura (Acute) Idiopathic intracranial hypertension (Acute) Stopped Acetazolamide (Diamox) with +UPT. H/A is sx of ICH. Medical History (Updated 03/07/23 @ 16:15 by Maximo Salas MD) History of miscarriage Surgical History Hx of tonsillectomy Family History Father Well adult Mother Well adult Sister IIH (idiopathic intracranial hypertension) Social History (Updated 07/19/21 @ 14:18 by Josefina Myers MD) Smoking/Tobacco Use Status: Current every day Tobacco Type: smokeless tobacco Quit status: considering quitting Counseling given: provider counseling Smoking risk assessment performed?: Yes Alcohol Intake: never Drug use: Never Household members: family and other Details: 04/2020.BF Govind. together 3mo prior to . Not involved. Housing: other Details: lives in [facility] [place]. Friend Rod moved with her from [place] and will be roomate Number of Children: 1 Education Level: high school current occupation: Not employed. Friend Rod is working at [employer] and will support them. Pets and animals: Yes Pets and animals: dog(s) What is your relationship status?: never Panel score (0-1 are the most socially isolated patients): 0 What type of physical activity do you participate in: none Seatbelt use: always Do you feel safe at home: Yes Do you feel safe in your relationship?: Yes History History 4 Para 1 Hx # Term Pregnancies 1 Multiple births 0 Hx # Pregnancies 0 Ectopic pregnancies 0 AB induced 0 Hx Number of Living Children 1 AB spontaneous 2 Past Pregnancies Del. Date GA/Weeks # Preg Succ Route Wgt Sex Labor Lgth Anesthesia Location Prov Complic 12/08/20 39 No Yes vaginal 7 lb 5.6 oz Female 12 hrs [facility] due to cranial HTN 07/15/21 Delivery Date: 12/08/20 Last Updated by: Yina Tello IOL, nml , some stitches, tried unsuccessfully to breastfeed [place] Delivery Date: 07/15/21 Last Updated by: Josefina Myers M.D. early SAB, +home test, then bleeding/clots. Also had early miscarriage in her teens. Results Last Vital Signs Temp 98.2 F 03/07/23 08:55 Pulse 71 03/07/23 15:21 Resp 24 03/07/23 08:55 BP 134/81 03/07/23 15:21 Pulse Ox 100 03/07/23 15:21 Labs Labs: Laboratory Results - last 24 hr 03/07/23 10:15 Serum HCG, Qual Negative
[2023-03-07] MEDS: Ondansetron O.D.T. 4 MG TABEF PO (19:16)
[2023-03-07] MEDS: oxyCODONE 5 MG TAB PO (19:16)
[2023-03-08] VITALS (123 sets, daily range): BP systolic 123; BP diastolic 87; PULSE 74; RESP 19; TEMP 36.9; O2SAT 93–99
[2023-03-08] MEDS: oxyCODONE 5 MG TAB PO (02:34)
[2023-03-08] MEDS: Ketorolac 15 MG/ML VIAL IVP (02:35)
[2023-03-08] MEDS: Acetaminophen 500 MG TAB 1000 MG PO (10:23)
--- NOTE | 2023-03-08 10:28 | ED.PROG_ITS ---
Date of service: 03/08/23 Time of Service: 07:30 Medical Decision Making I received signout during downtime. I have seen and examined the patient. She is complaining of right leg pain. I will write for additional morphine which she has taken before Medical Records Medical records reviewed: Yes I reviewed the patient's medical records. Imaging Data Radiologic Study #2: Imaging: MRI (MRI lower joint right with and without) Radiologist's impression: 1. 5.1 time was 4.5 x 6.6 cm well-circumscribed lesion in the distal lateral femoral condyle. Differential considerations include giant cell tumor or bone cyst. Neoplastic process is felt to be less likely. Pathologic fracture involving the distal femur through the bony lesion extending inferiorly into the intercondylar notch. 3. Hemarthrosis. Lab Data Lab results reviewed: Yes I reviewed the patient's lab results. Lab results narrative: Labs have been resulted on faxed copies because of downtime. Narrative The patient has a bed at [facility] and I will review the transfer orders and I have written for 2 more milligrams of morphine prior to transfer. 12:59 PM the patient asked the ALIGNER TYPEWRITER about medications for anxiety prior to transfer. I told the patient I was a little reluctant to combine anxieolytics with morphine because of excessive sedation. The patient stated that if her pain was under control she felt she would not require anxiety lytics. Sign Out Sign Out Data: Sign Out Comment: Patient awaiting callback from [facility] for Ortho admit for pathologic fracture to likely giant cell tumor. may need pursuit at [place] or [place] if negative Karis Mueller aware Last updated by Juan Reynolds PA at 03/07/23 15:26 Sign Out Comment: Mrs. 22-year-old with pathologic fracture likely due to giant cell tumor. She has been accepted by orthopedics at that [facility]. Transfer tushar rwork has been completed and she is pending bed availability Last updated by Karis Mueller NP at 03/07/23 22:09 Discharge Plan Disposition Patient Disposition: Transfer-Acute Inpatient Care Specific Acute Inpt Facility: [facility] Condition: Good Discharge Details Clinical Impression: Pathological fracture of right femur Primary Care Provider: Ananda Sterling ED Provider: Lexi Jaimes Home Meds and New Rx's Prescriptions: No Action No Known Home Meds Discharge Data Discharge Physician: Lexi Jaimes
--- NOTE | 2023-03-08 15:27 | NUR.NOTE ---
melyssa Salvador; [phone] Shanda, Nursing Note:
== END 2023-03-08 14:22 | disposition short-term general hospital (02) ==
PROVIDERS: Physician Assistant; Emergency Provider Emergency Medicine Emergency Medical Services; PCP Internal Medicine
DX: M84.451A Pathological fracture, right femur, initial encounter for fracture (principal); M25.061 Hemarthrosis, right knee; M89.9 Disorder of bone, unspecified
CPT/HCPCS: 00123; 73562; 96374; 96375; 96376; 99285; 73723; 84703; J0131; J1170; J1885; J2405; J3010

== ENCOUNTER 2023-03-12 19:49 | Inpatient (IN) | payer MEDICAID, SELFPAY ==
[2023-03-12 19:45] VITALS: BP 124/86; PULSE 107; RESP 16; TEMP 38.1; O2SAT 98
--- NOTE | 2023-03-12 20:10 | W.PM.HP.N ---
Date of service: 03/12/23 Time of Service: 20:10 Assessment and Plan Assessment and plan (1) Pathological fracture of right femur: Start date: 03/07/23 Status: Acute Assessment and plan: This is a 22-year-old lady who has a pathologic fracture in the right lower femur pending pathology now on pain control. Oxycodone is not helping with pain control and I will switch to Dilaudid p.o. for moderate pain and IV for severe pain. PT and OT evaluation for safe ambulation awaiting biopsy report and plan of care. [facility] orthopedics has been involved and oncology has been involved. He is a full code. Qualifiers: Encounter type: subsequent encounter Fracture healing: with nonunion Pathology associated with fracture: neoplastic disease Qualified Code(s): M84.551K - Pathological fracture in neoplastic disease, right femur, subsequent encounter for fracture with nonunion (2) Morbid obesity: Status: Chronic Assessment and plan: Long-term weight loss would be helpful and patient can discuss this with PCP once established. She was trying to set up PCP when she was having right lower extremity pain progressively over the last couple of months. She has only seen an [facility] in the past. History of Present Illness History of Present Illness Chief Complaint: Acute right knee pain with pathologic fracture Narrative: This is a 22-year-old female patient who had gradual onset of right knee pain worse with weightbearing over the last 2 months started out as an achiness and then progressing to where she could not bear weight and had to walk cautiously upstairs and on flat surfaces. The day of presentation to the ED 03/07/2023, she slept on a loom changer on the floor and felt a pop in her right knee bringing her to the ground. She was evaluated to have a pathologic fracture of her distal right femur. There appeared to be a tumor associated and she was transferred to [facility] for evaluation. Oncology was consulted and interventional radiology did do a biopsy of the lesion and pathology is pending. There is no record of the oncology consultation which should be obtained. The diagnosis is unclear at this time and she is awaiting pathology and plan for repair or treatment. She is nonweightbearing with a rigid splint around her right knee and will require pain management with physical therapy and Occupational Therapy to assess for safe ambulation. She has no chronic medical problems other than obesity. She is a full code. Review of Systems Narrative: 13 point review of systems otherwise unrevealing or stable. PFSH All Active Problems (Updated 03/13/23 @ 06:22 by Evan Perez) Pathological fracture of right femur (Acute) Pathological fracture, right femur, initial encounter for fracture (Acute 03/07/23) Rh negative state in antepartum period (Acute) (Acute) Morbid obesity (Chronic) Migraine headache without aura (Acute) Idiopathic intracranial hypertension (Acute) Stopped Acetazolamide (Diamox) with +UPT. H/A is sx of ICH. Medical History History of miscarriage Surgical History Hx of tonsillectomy Family History Father Well adult Mother Well adult Sister IIH (idiopathic intracranial hypertension) Social History Smoking/Tobacco Use Status: Current every day Tobacco Type: smokeless tobacco Quit status: considering quitting Counseling given: provider counseling Smoking risk assessment performed?: Yes Alcohol Intake: never Drug use: Never Household members: family and other Details: 04/2020.BF Govind. together 3mo prior to . Not involved. Housing: house Number of Children: 1 Education Level: high school current occupation: Not employed. Friend Rod is working at [employer] and will support them. Pets and animals: Yes Pets and animals: dog(s) What is your relationship status?: never Panel score (0-1 are the most socially isolated patients): 0 What type of physical activity do you participate in: none Seatbelt use: always Do you feel safe at home: Yes Do you feel safe in your relationship?: Yes History History 4 Para 1 Hx # Term Pregnancies 1 Multiple births 0 Hx # Pregnancies 0 Ectopic pregnancies 0 AB induced 0 Hx Number of Living Children 1 AB spontaneous 2 Past Pregnancies Del. Date GA/Weeks # Preg Succ Route Wgt Sex Labor Lgth Anesthesia Location Prov Complic 12/08/20 39 No Yes vaginal 3333.904 g Female 12 hrs [facility] due to cranial HTN 07/15/21 Delivery Date: 12/08/20 Last Updated by: Yina Tello IOL, nml , some stitches, tried unsuccessfully to breastfeed [place] Delivery Date: 07/15/21 Last Updated by: Josefina Myers M.D. early SAB, +home test, then bleeding/clots. Also had early miscarriage in her teens. Meds Allergies and Home Medications Allergies Allergy/AdvReac Type Severity Reaction Status Date / Time No Known Allergies Allergy Verified 06/12/22 15:10 Home Medications Medication Instructions Recorded Confirmed Type acetaminophen 500 mg tablet 1,000 mg PO Q6H PRN pain, fever 03/12/23 03/12/23 History cholecalciferol (vitamin D3) 50 50 mcg PO DAILY 03/12/23 03/12/23 History mcg (2,000 unit) capsule docusate sodium 100 mg capsule 200 mg PO BID 03/12/23 03/12/23 History enoxaparin 30 mg/0.3 mL 30 mg subcut Q12H 03/12/23 03/12/23 History subcutaneous syringe gabapentin 300 mg capsule 300 mg PO TID 03/12/23 03/12/23 History hydromorphone 0.5 mg/0.5 mL 0.5 mg subcut Q4H PRN pain 03/12/23 03/12/23 History injection syringe hydroxyzine HCl 25 mg tablet 25 mg PO Q6H 03/12/23 03/12/23 History ibuprofen 600 mg tablet 600 mg PO Q6H PRN fever or pain 03/12/23 03/12/23 History lorazepam 1 mg tablet 1 mg PO BID PRN anxiety 03/12/23 03/12/23 History methocarbamol 500 mg tablet 1,000 mg PO Q6H PRN muscle spasm 03/12/23 03/12/23 History oxycodone 5 mg tablet 15 mg PO Q4H PRN pain 03/12/23 03/12/23 History polyethylene glycol 3350 17 gram 17 g PO DAILY 03/12/23 03/12/23 History oral powder packet sennosides 8.6 mg tablet (senna) 17.2 mg PO BID 03/12/23 03/12/23 History zinc sulfate 50 mg zinc (220 mg) 50 mg PO DAILY 03/12/23 03/12/23 History tablet Exam Narrative Exam Narrative: General: Patient appears appropriate for age, moderately obese, alert and oriented x3 and in no acute distress. Slightly flattened affect. HEENT: Normocephalic, eyes with pupils equal react light symmetrically, extraocular movements sclera anicteric. Oropharynx clear with moist mucosa and good dentition. Neck: Supple without JVD. Back: Stooped posture without CVA tenderness. Lungs: Clear to auscultation with no focalizing rales or rhonchi. Breast: Exam deferred. Heart: Regular rate and rhythm with no murmurs gallops appreciated. Abdomen: Obese contour, soft nontender to palpation without palpable hepatosplenomegaly. Bowel sounds positive all quadrants. Genitalia/rectal: Exam deferred. Extremities no clubbing, cyanosis or pitting edema. Peripheral pulses intact. Right leg is in a regular cast immobilizing the knee with tenderness of the lower thigh above the knee. Skin: Moist, normal color and warm. Neuro: Cranial nerves II through XII gross intact, no focal motor deficits. No tremor. Psych: Slightly flattened affect, normal mood. Remote and recent memory intact. No abnormal thought processes. Results Imaging Imaging Studies: EXAM: MR LOWER JOINT RT WO/W Date of /Exam: 03/07/2023 CLINICAL HISTORY: R knee - tumor fracture. TECHNIQUE: Multiplanar multisequence MRI of the right knee was performed. CONTRAST MATERIAL: IV Contrast: 20 mL of Dotarem contrast administered. COMPARISON: CR XR KNEE RT 3V AP,LAT,MATT from 03/01/2023 CR XR KNEE RT 3V AP,LAT,MATT from 03/07/2023 FINDINGS: BONES/JOINTS: There is a 5.1 AP by 4.5 transverse by 6.6 craniocaudad cm well-circumscribed lesion in the lateral femoral condyle. It is intermediate signal on the T2 weighted images and hypointense on the T1 weighted images. No fluid fluid levels are identified. There is no associated soft tissue mass. There is heterogeneous enhancement following contrast administration. It has a longitudinal orientation and extends into the intercondylar notch. The fracture is comminuted, particularly anteriorly and inferiorly. There is a large hemarthrosis. No other osseous lesions are seen. No other fractures appreciated. MUSCULOTENDINOUS STRUCTURES: The muscles show normal signal and size. No muscular fatty atrophy. SOFT TISSUES: Unremarkable. OTHER FINDINGS: None. IMPRESSION: 1. 5.1 x 4.5 x 6.6 cm well-circumscribed lesion in the distal lateral femoral condyle. Differential considerations include giant cell tumor or bone cyst. Neoplastic process is felt to be less likely. 2. Pathologic fracture involving the distal femur through the bony lesion extending inferiorly into the intercondylar notch. 3. Hemarthrosis. Labs 03/13/23 05:35 03/13/23 05:35 Time Spent Time spent with Patient: 55-74 minutes Time was spent: preparing to see the patient(eg.review tests), obtaining and/or reviewing separately otained hiistory, ordering medications,tests, procedures, indepentently interpreting results and care coordination
[2023-03-12] MEDS: Normal Saline Flush 10 ML SYR IVP (21:24)
[2023-03-12] MEDS: HYDROmorphone 2 MG/ML SYR 0.5 MG IVP (21:25)
[2023-03-12 23:08] VITALS: BP 124/86; PULSE 112; RESP 16; TEMP 37.7; O2SAT 98
[2023-03-13] MEDS: Enoxaparin 30 MG/0.3 ML SYR SC ×3 (00:24→20:17)
[2023-03-13] MEDS: Acetaminophen 325 MG TAB PO (00:24)
[2023-03-13] MEDS: hydrOXYzine HCL 25 MG TAB PO ×4 (00:32→18:29)
[2023-03-13 01:25] LABS: Source Nasal/Nares
[2023-03-13 01:57] LABS: COVID-19 PCR Negative (Negative)
[2023-03-13] MEDS: HYDROmorphone 2 MG/ML SYR 0.5 MG IV ×2 (02:13→09:22)
[2023-03-13] MEDS: Normal Saline Flush 10 ML SYR IVP ×3 (02:15→20:16)
[2023-03-13 04:20] VITALS: BP 132/87; PULSE 97; RESP 16; TEMP 36.4; O2SAT 95
[2023-03-13 06:48] LABS: HCT 33.6 % (36.0-46.0); HGB 10.8 g/dL (11.2-15.7); MCH 26.1 pg (27.0-33.0); MCHC 32.1 % (32.0-36.0); MCV 81 fL (80-95); MPV 9.1 fL (8.0-11.0); Platelet Count 351 10^3/uL (130-400); RBC 4.14 10^6/uL (3.93-5.22); RDW 14.1 % (11.7-14.6); RDW-SD 41.8 fL; WBC 9.48 10^3/uL (4.4-10.8)
[2023-03-13] MEDS: HYDROmorphone 2 MG TAB PO (06:53)
[2023-03-13 07:06] VITALS: BP 128/89; PULSE 109; RESP 18; TEMP 37.4; O2SAT 93
[2023-03-13 07:13] LABS: ALT 22 U/L (14-59); AST 10 U/L (15-37); Albumin 2.5 g/dL (3.4-5.0); Alkaline Phosphatase 72 U/L (46-116); Anion Gap 6.1 mmol/L (3-11); BUN 9 mg/dL (7-18); Bilirubin, Total 0.3 mg/dL (0.2-1.0); CO2 29.9 mmol/L (21.0-32.0); CREATININE 0.5 mg/dL (0.55-1.02); Calcium 9.6 mg/dL (8.5-10.1); Chloride 101 mmol/L (98-107); Estimated GFR 135.07 (mL/min/1.73m2); Glucose 100 mg/dL (74-106); Potassium 3.6 mmol/L (3.5-5.1); Sodium 137 mmol/L (136-145); TSH (W/Ref FT4) 1.89 uIU/mL (0.36-3.74); Total Protein 7.1 g/dL (6.4-8.2)
[2023-03-13] MEDS: Gabapentin 300 MG CAP PO (08:42)
[2023-03-13] MEDS: Docusate Sodium 100 MG CAP 200 MG PO ×2 (08:42→20:17)
[2023-03-13] MEDS: Senna TAB 1 TAB PO ×2 (08:42→20:17)
[2023-03-13] MEDS: Cholecalciferol (Vitamin D3) 1,000 UNIT TAB 2000 UNITS PO (08:42)
[2023-03-13] MEDS: Zinc Sulfate 220 MG TAB PO (08:42)
[2023-03-13] MEDS: Polyethylene Glycol 3350 17 GM PACKET PO (08:43)
--- NOTE | 2023-03-13 10:40 | IN_ITS ---
PT Notes Visit Reasons: Right Pathologic Femur Fracture Physical Therapy Inpatient Initial Evaluation Date: 03/13/2023 Referring Doctor: Evan Perez MD PT Orders: PT CONSULT: Limited bility Precautions: Fall. Standard. NWB on the R LE with AD. Patient Profile/Admitting Diagnosis: Brenna is a 22-year-old female with pathologic fracture of the distal right femur and a large lytic lesion in the lateral femoral condyle. IMPRESSION from R LE MRI on 03/07/2023: 1. 5.1 x 4.5 x 6.6 cm well-circumscribed lesion in the distal lateral femoral condyle. Differential considerations include giant cell tumor or bone cyst. Neoplastic process is felt to be less likely. 2. Pathologic fracture involving the distal femur through the bony lesion extending inferiorly into the intercondylar notch. 3. Hemarthrosis. IMPRESSION from R Knee x-ray on 03/07/2023: 1. Pathologic fracture through the lytic lesion involving the lateral femoral condyle. 2. Moderate joint effusion. 3. Lytic distal femoral lesion as described before. Differential considerations include aneurysmal bone cyst, giant cell tumor or simple bone cyst among other etiologies. CT and MRI should be considered for further evaluation. PMHX: All Active Problems (Updated 03/07/23 @ 12:30 by Maximo Salas MD) Pathological fracture, right femur, initial encounter for fracture (Acute) Rh negative state in antepartum period (Acute) (Acute) Morbid obesity (Acute) Migraine headache without aura (Acute) Idiopathic intracranial hypertension (Acute) Stopped Acetazolamide (Diamox) with +UPT. H/A is sx of ICH. Medical History (Updated 03/07/23 @ 12:30 by Maximo Salas MD) History of miscarriage Surgical History Hx of tonsillectomy Social History/Home Situation: Independent with all aspects of ADLs prior to surgery. Equipment Owned/DME: None Subjective: I have not been able to sleep because of the pain. Patient reports 7-8/10 in the R thigh and knee at rest. Patient unwilling to move unless pain is more managed. Objective: General Observation: Resting in bed, in mild distress due to her pain level. PETEY wraps to the whole R LE. Long leg R knee immobilizer in place. Mental Status: Alert and oriented as to person, place, time, and purpose. Able to pay attention, focus, and respond appropriately. Pain: As above Vital Signs: [place] monitored by nursing staff ROM: Right Lower Extremity: Patient unable to move and highly anxious to move R LE due to pain Left Lower Extremity: Hip flexion WFL. Hip abduction WFL. Knee flexion WFL. Ankle dorsiflexion WFL. Ankle plantarflexion WFL. Strength: Right Lower Extremity: Hip flexors 1/5. Hip abductors 1/5. Knee flexors 1/5. Knee extensors 1/5. Ankle dorsiflexors 1/5. Ankle plantarflexors 1/5. Left Lower Extremity: Hip flexors 4/5. Hip abductors 4/5. Knee flexors 5/5. Knee extensors 5/5. Ankle dorsiflexors 5/5. Ankle plantarflexors 5/5. Bed Mobility/Transfers: Rolling unable to test Supine to sit unable to test Sit to supine unable to test Sit to stand unable to test Stand to sit unable to test Bed to bedside commode unable to test Bedside commode to bed unable to test Bed to reclining chair unable to test Reclining chair to bed unable to test Gait: Deferred Balance: Static Sitting: Unable to test Dynamic Sitting: Unable to test Static Standing: Unable to test Dynamic Standing: Unable to test Special Tests: Mobility Limitations Standardized Measure [facility] AM-PAC 6 clicks Basic Mobility Inpatient Short Form: Raw Score: 6 CMS Score: 100% deficit Informed Consent/Education: Patient was instructed in purpose of PT consult and plan of care. Unsure about how PT can help her at this time knowing that her pain level is high even at rest. Agreeable to holding off on any attempts at mobility progression until pain is more controlled and until definitive plan about surgery base don results from L lateral femoral condyle lesion biopsy is received. ASSESSMENT: HOLD OFF ON mobilization out of bed until recommendations from in-house and [facility] hospitalists/ortho surgeons are received based on results from L lateral femoral condyle lesion biopsy. Dr. Gonzalez and HERACLIO Rodriguez aware. In the meantime, will make arrangement with nurse for pre-medication if patient agrees to work on mobilizing B UE and L LE as well as her core muscles to prevent further delcine in mobility level. Patient presents with clinical signs and symptoms consistent with current/admitting diagnoses that have resulted to mobility limitations, gait instability, generalized weakness, and overall ADL decline as demonstrated by the following impairment level findings: 1. Decreased strength to R LE major muscle groups 2. Impaired sitting/standing balance 3. Impaired activity tolerance 4. Limitation of joint range of motion in R LE joints 5. High BMI 6. High pain level 7. High anxiety level Impairments are contributing to the following functional limitations: 1. Decline in bed mobility skills 2. Decline in transfer skills 3. Inability to perform ambulation without assistive device and physical assistance 4. Increased completion time for mobility ADL performance 5. Increased risk for falls 6. Difficulty with managing steps alone safely Patient is assessed as a 98757 high complexity based on the following: History: [id number] with past medical history as indicated above Examination: Demonstrable impairment in strength, balance, and mobility level with underlying impairments and functional limitations as exhibited above as well as deficit score of 100% utilizing the [facility] Mobility Inpatient Short Form Presentation: Unstable Decision Makin moderate complexity Goals: Goals X1 week 1. Supine-Sit minimal assist of 2 2. Sit-Supine minimal assist of 2 3. Sit-Stand minimal assist of 2 with bariatric FWW 4. Stand-Sit minimal assist of 2 with bariatric FWW 5. Bed-Chair minimal assist of 2 with bariatric FWW 6. Chair-Bed minimal assist of 2 with bariatric FWW 7. Fair static and dynamic standing balance/tolerance Plan of Care/Treatment Plan: 1-2x/day, 7 days/week x 1 week once pain is more controlled for B UE/L LE and core strengthening as well as on transfer training. Plan of care has been reviewed with the [facility] providing the service under Physical Therapy direction. Initiate Physical Therapy intervention for pain management as needed, strengthening, bed mobility, transfers, gait, stairs, balance training, and use of assistive device. DISCHARGE RECOMMENDATIONS: [] Home with no services [] [] Home with services [specify] [] Home with outpatient PT [] [X] SNF for continued rehabilitation. Patient will benefit from senior care facility placement for continued skilled physical therapy services in order to progress mobility level, strength, and balance in preparation for a safe discharge to home. [] [facility] [] [] SNF versus LTC based on ability to participate and progress [] TREATMENT CODE/TIME: 52957 x 32 minutes for 1 unit beginning at 10:40 AM. Thank you for the opportunity to participate in the care of this patient. Gege Gerardo PT, DPT, CLT [facility] [place], [place]
--- NOTE | 2023-03-13 11:17 | INITIAL_ITS ---
Date of service: 03/13/23 Time of Service: 11:18 Care Management Initial Assmt Initial Assessment REASON FOR HOSPITALIZATION:: Right pathological femur fracture PREVIOUS FUNCTIONAL STATUS/SOCIAL/FAMILY SUPPORTS:: Radha lives in [facility] with her fiance, Harjeet, and their two daughters, who are two and nine months old. 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 She is independent at baseline. CURRENT FUNCTIONAL STATUS:: Radha, who prefers to be called Lana or Soco, was lying in bed when CM met with her. Her fiance, father, mother, and other family members were present during the conversation. Lana reported that since transferring to [facility] from [facility], her pain has not been well controlled. Her fiance, Harjeet, discussed the events of the past week that led to her admission. He stated that she has been in pain for about three months, and was on her way to an appointment with Ortho on 03/07/23, when she slipped and fell. She went to the ED, where the fracture in her femur was discovered. She spent the night in the ED and transferred to [facility] the next day. At [facility], she had a biopsy, the results of which are not yet returned, but expected on Sunday, at the earliest. She was transferred back to [facility] for pain control and to work with PT, awaiting her biopsy results, which will dictate her plan of care. Harjeet stated that per [facility], she will have surgery either way (if the lesion is cancerous or not), but it will change the procedure. CM discussed this with the providers, who will stay in contact with [facility] regarding the biopsy results and the plan of care going forward. CM discussed Lana's pain control with the provider, who will make changes to her pain regiment and schedule some medications, as well as discuss pain control measures with nursing. CM will continue to follow. ADVANCE DIRECTIVES:: Not on file; CM will offer forms. Has patient been provided with info about the portal/API?: Yes Did the patient sign up for the portal?: No CODE STATUS:: Full Code INSURANCE COVERAGE / FINANCIAL ISSUES:: ERIN CURRENT HOME/COMMUNITY SERVICES/EQUIPMENT:: None. PRIMARY CARE PHYSICIAN:: Ananda Sterling POTENTIAL DISCHARGE NEEDS:: Coordinated transfer to [facility]; possible SWB if no longer acute, waiting for plan of care and to work with PT. PATIENT/FAMILY EDUCATION NEEDS:: Review discharge instructions and limitations, discussion of self care needs including ask me three. ANTICIPATED BARRIERS TO DISCHARGE:: Unclear plan of care from [facility]; family not able to control pain and keep Lana safe at home, many barriers to safe discharge. TRANSPORTATION:: EMS, if transfer to [facility]. PLAN:: Radha's plan of care in unclear at this time, while we wait for biopsy results from [facility], which will dictate the next steps for Lana. Currently her pain control is the priority, as she is not able to work with PT until this is achieved. Her family is very supportive, and have been consistently visiting. CM will continue to follow and support Lana through this difficult situation, and advocate for her needs. PFSH All Active Problems (Updated 03/13/23 @ 06:22 by Evan Perez) Pathological fracture of right femur (Acute) Pathological fracture, right femur, initial encounter for fracture (Acute 03/07/23) Rh negative state in antepartum period (Acute) (Acute) Morbid obesity (Chronic) Migraine headache without aura (Acute) Idiopathic intracranial hypertension (Acute) Stopped Acetazolamide (Diamox) with +UPT. H/A is sx of ICH. Medical History History of miscarriage Surgical History Hx of tonsillectomy Family History Father Well adult Mother Well adult Sister IIH (idiopathic intracranial hypertension) Social History Smoking/Tobacco Use Status: Current every day Tobacco Type: smokeless tobacco Quit status: considering quitting Counseling given: provider counseling Smoking risk assessment performed?: Yes Alcohol Intake: never Drug use: Never Household members: family and other Details: 04/2020.POLI Faust. together 3mo prior to . Not involved. Housing: house Number of Children: 1 Education Level: high school current occupation: Not employed. Friend Rod is working at [employer] and will support them. Pets and animals: Yes Pets and animals: dog(s) What is your relationship status?: never Panel score (0-1 are the most socially isolated patients): 0 What type of physical activity do you participate in: none Seatbelt use: always Do you feel safe at home: Yes Do you feel safe in your relationship?: Yes History History 4 Para 1 Hx # Term Pregnancies 1 Multiple births 0 Hx # Pregnancies 0 Ectopic pregnancies 0 AB induced 0 Hx Number of Living Children 1 AB spontaneous 2 Past Pregnancies Del. Date GA/Weeks # Preg Succ Route Wgt Sex Labor Lgth Anesth esia Location Prov Complic 12/08/20 39 No Yes vaginal 3333.904 g Female 12 hrs [facility] due to cranial HTN 07/15/21 Delivery Date: 12/08/20 Last Updated by: Yina Tello IOL, nml , some stitches, tried unsuccessfully to breastfeed [place] Delivery Date: 07/15/21 Last Updated by: Josefina Myers M.D. early SAB, +home test, then bleeding/clots. Also had early miscarriage in her teens.
[2023-03-13] MEDS: Ibuprofen 600 MG TAB PO (11:37)
[2023-03-13] MEDS: Methocarbamol 500 MG TAB 1000 MG PO (11:37)
[2023-03-13 11:40] VITALS: BP 137/97; PULSE 110; RESP 20; TEMP 37.8; O2SAT 96
[2023-03-13] MEDS: HYDROmorphone 2 MG/ML SYR IVP ×2 (12:39→16:16)
--- NOTE | 2023-03-13 13:00 | W.PM.PROGNOT ---
Date of Service Date of service: 03/13/23 Time of Service: 13:00 Assessment and Plan Assessment and plan (1) Pathological fracture of right femur: Start date: 03/07/23 Status: Acute Assessment and plan: Oxycodone scheduled Q4 PRN hydromorphone for breakthrough pain PT and OT evaluation in progress for safe ambulation awaiting biopsy report and plan of care. Denies getting up with PT at [facility] orthopedics has been involved and oncology has been involved. As per patient pathology could take 7- 10 days Qualifiers: Encounter type: subsequent encounter Fracture healing: with nonunion Pathology associated with fracture: neoplastic disease Qualified Code(s): M84.551K - Pathological fracture in neoplastic disease, right femur, subsequent encounter for fracture with nonunion (2) Inadequate pain control: Status: Acute Assessment and plan: As above (3) Morbid obesity: Status: Chronic Assessment and plan: PCP mangement of lifestyle changes ; long-term weight loss would be helpful.Will need a PCP set-up (4) On deep vein thrombosis (DVT) prophylaxis: Status: Acute Assessment and plan: On lovenox SC (5) Discharge planning issues: Status: Acute Assessment and plan: C/M to f/u disposition pending progression Subjective Subjective Patient reports: still having pain, tolerating liquids well, tolerating a regular diet, voiding w/o difficulty, flatus, no bowel movement, nausea and afebrile; denies diarrhea, vomiting or shortness of breath Exam Narrative Exam Narrative: Constitutional The patient is uncomfortable with movement and cooperative during the interview. The patient is well groomed without acute distress beside pain and has obese body habitus/is obese/ is thin. HENMT: Head is atraumatic, normocephalic, no lymphadenopathy. Facial structures with normal appearance Eyes: Well aligned, intact ROM Neck: Normal ROM Neuro:alert and oriented to self, person, place, time and situation. No neurological focal deficit, PERRLA on ambient light Chest:Chest is symmetrical and normal appearance Resp: Normal respiratory pattern, speaks in full sentences, unlabored breathing, clear lung bilaterally Cardio: regular rhythm, S1, S2, no murmur, capillary refill<3 sec., bilateral radial and dorsalis pedis pulses are positive, palpable GI: Abdomen is not distended, soft and non tender, bowel sounds are present : Negative Costovertebral angle tenderness, no bladder distension Back/spine/Pelvis: No back tenderness, normal alignment Integumentary: No skin lesions or rash Extremities: strength 5/5 to left LE, but RLE is weak d/t pain and long knee brace on this ext., not to be removed Psych: RASS 0, congruent mood and normal affect. Objective Last Vital Signs Temp 37.8 C H 03/13/23 11:40 Pulse 110 H 03/13/23 11:40 Resp 20 03/13/23 11:40 BP 137/97 H 03/13/23 11:40 Pulse Ox 96 03/13/23 11:40 Laboratory Results - last 24 hr 03/12/23 03/13/23 03/13/23 20:07 00:30 06:20 WBC 9.48 RBC 4.14 Hgb 10.8 L Hct 33.6 L MCV 81 MCH 26.1 L MCHC 32.1 RDW 14.1 Plt Count 351 MPV 9.1 Sodium 137 Potassium 3.6 Chloride 101 Carbon Dioxide 29.9 Anion Gap 6.1 BUN 9 Creatinine 0.5 L Est GFR (CKD-EPI 2020) 135.07 Glucose 100 Calcium 9.6 Total Bilirubin 0.3 AST 10 L ALT 22 Alkaline Phosphatase 72 Total Protein 7.1 Albumin 2.5 L TSH Cancelled 1.89 COVID-19 Source Nasal/Nares SARS-CoV-2 (PCR) Negative Time Spent with Patient Time Spent with Patient: >50 minutes Time was spent: preparing to see the patient(eg.review tests), ordering medications,tests, procedures, referring, communicating with other health urgent care nurse practitioner, indepentently interpreting results, counseling the patient and care coordination
[2023-03-13] MEDS: Gabapentin 600 MG TAB PO ×2 (16:16→20:18)
[2023-03-13] MEDS: Acetaminophen 500 MG TAB 1000 MG PO ×2 (16:16→20:18)
[2023-03-13] MEDS: Ketorolac 30 MG/ML VIAL IVP (18:27)
[2023-03-13] MEDS: oxyCODONE 10 MG TAB PO ×2 (18:31→22:10)
[2023-03-13 19:32] VITALS: BP 126/85; PULSE 103; RESP 18; TEMP 36.8; O2SAT 96
[2023-03-13 22:42] VITALS: BP 111/71; PULSE 101; RESP 18; TEMP 36.1; O2SAT 96
[2023-03-14 04:00] VITALS: BP 129/87; PULSE 85; RESP 16; TEMP 36.8; O2SAT 96
[2023-03-14] MEDS: oxyCODONE 10 MG TAB PO ×3 (06:13→14:02)
[2023-03-14] MEDS: hydrOXYzine HCL 25 MG TAB PO ×3 (06:13→18:15)
[2023-03-14] MEDS: Normal Saline Flush 10 ML SYR IVP ×3 (06:14→20:21)
[2023-03-14] MEDS: Ketorolac 30 MG/ML VIAL IVP ×2 (06:14→12:01)
[2023-03-14 07:23] VITALS: BP 127/83; PULSE 95; RESP 18; TEMP 37.2; O2SAT 94
[2023-03-14 07:31] LABS: Abs Immature Grans 0.03 10^3/uL (0.0-0.06); Absolute Basophil Count 0.03 10^3/uL (0.0-0.2); Absolute Eosinophil Count 0.19 10^3/uL (0.0-0.7); Absolute Lymphocyte Count 1.92 10^3/uL (1.2-3.4); Absolute Monocyte Count 0.57 10^3/uL (0.1-0.8); Absolute Neutrophil Count 6.32 10^3/uL (1.2-6.7); Basophils % 0.3; Eosinophils % 2.1; HCT 33.3 % (36.0-46.0); HGB 10.6 g/dL (11.2-15.7); Immature Grans % 0.3; Lymphocytes % 21.2; MCH 26.5 pg (27.0-33.0); MCHC 31.8 % (32.0-36.0); MCV 83 fL (80-95); MPV 9.4 fL (8.0-11.0); Monocytes % 6.3; Neutrophils % 69.8; Platelet Count 404 10^3/uL (130-400); RDW 14.2 % (11.7-14.6); RDW-SD 43.3 fL; WBC 9.06 10^3/uL (4.4-10.8)
--- NOTE | 2023-03-14 07:32 | NUR.NOTE ---
At beginning of shift in evening pt reported that pain well controlled, stated not bad. Scheduled meds given per MAR with good effect. This play writer reiterated pain management plan made by day shift, with the recommendation to take pain meds overnight as well to better manage pain. Pt states she does not want to be woken up for pain medication as she wants to sleep. Pt stated that she's agreeable to being woken up Q4H but does not want to be woken up at 0200. Scheduled meds given while pt awake in evening. At 0000 this play writer woke pt up but pt declined scheduled pain medication. Pt sleeping at 0200, not woken up per pt request. At 0400 VS assessed, at which time pt declined medication. This morning at 0600 pt reports some pain, rating 7/10, agreeable to taking scheduled meds. Pt able to use bedpan without issue. Overnight Q1H rouding done, pt appeared to be sleeping comfortably in between cares. Overnight pt refused repositioning or turning for skin assessment. This play writer explained importance of regular repositioning to prevent pressure injury and stiffness, and to assess for leaking from purewick on chux. Pt stated that she does not want to aggravate the pain to RLE and that is comfortable with the wedge placed by day shift. Pt states that all hygiene cares and repositioning were done right before shift change and does not need to be done. gumming machine operator updated with the above. Nursing Note:
[2023-03-14 07:43] LABS: Anion Gap 8.3 mmol/L (3-11); BUN 11 mg/dL (7-18); CO2 29.7 mmol/L (21.0-32.0); CREATININE 0.6 mg/dL (0.55-1.02); Calcium 9.5 mg/dL (8.5-10.1); Chloride 99 mmol/L (98-107); Estimated GFR 129.27 (mL/min/1.73m2); Glucose 97 mg/dL (74-106); Magnesium 1.8 mg/dL (1.8-2.4); Potassium 3.6 mmol/L (3.5-5.1); Sodium 137 mmol/L (136-145)
--- NOTE | 2023-03-14 08:26 | OT.INNT ---
Occupational Therapy Notes 03/14/23 OT consult received and pts chart was reviewed. OT went in to consult with pt that reports that her pain is not well managed and she is unable to even slightly move her leg d/t this. She is uncomfortable. Pt is 22 and has ideal ROM of her (B) UE and ideal strength. She is able to perform her UE bathing and dressing (I) but her LE until her pain is better managed we are not able to work towards this. At this time she would like to hold on OT services until her pain is better managed and she receives the results from her biopsy. OT will continue to collaborate with PT on their plan of care and progress as pts symptoms allow. Gem Mensah, OTR/L
[2023-03-14] MEDS: Zinc Sulfate 220 MG TAB PO (08:35)
[2023-03-14] MEDS: Docusate Sodium 100 MG CAP 200 MG PO ×2 (08:35→20:21)
[2023-03-14] MEDS: Docusate Sodium 100 MG CAP PO ×2 (08:35→20:21)
[2023-03-14] MEDS: Senna TAB 1 TAB PO (08:35)
[2023-03-14] MEDS: Gabapentin 600 MG TAB PO ×3 (08:35→20:21)
[2023-03-14] MEDS: Acetaminophen 500 MG TAB 1000 MG PO ×3 (08:35→20:20)
[2023-03-14] MEDS: Cholecalciferol (Vitamin D3) 1,000 UNIT TAB 2000 UNITS PO (08:35)
[2023-03-14] MEDS: Polyethylene Glycol 3350 17 GM PACKET PO ×2 (08:36)
[2023-03-14] MEDS: Enoxaparin 30 MG/0.3 ML SYR SC ×2 (08:36→20:20)
[2023-03-14 11:10] VITALS: BP 122/87; PULSE 94; RESP 18; TEMP 36.4; O2SAT 96
--- NOTE | 2023-03-14 13:43 | CMPROGNOTE_ITS ---
Date of service: 03/14/23 Time of Service: 13:43 Care Management Progress Note Progress Note Text Progress Note Text: S/O: Lana was sitting up in bed when CM met with her. She was awake and alert, and stated that her pain is much more controlled today. She reported that she slept well last night, which was the first night she was able to get good rest in several days. She engaged well with CM, expressing her concern with too much movement, as any movement causes her a lot of pain. CM encouraged her to work with PT, as there are other things they can work on to increase her independence. Lana also stated that she would prefer to go to [facility] for surgery vs [facility], as she has had experience with [facility]. CM will inform the provider of her request. She stated that Ortho met with her today to discuss her brace, but she feels much more comfortable today, so she stated that she didn't want to change it's position. CM will continue to follow. A: Radha is a 22 year old female admitted to [facility] on 03/12/23 for a right pathological femur fracture. P: Radha's plan of care in unclear at this time, while we wait for biopsy results from [facility], which will dictate the next steps for Lana. Currently her pain control is the priority, as she is not able to work with PT until this is achieved. Her family is very supportive, and have been consistently visiting. CM will continue to follow and support Lana through this difficult situation, and advocate for her needs.
--- NOTE | 2023-03-14 13:45 | W.PM.PROGNOT ---
Date of Service Date of service: 03/14/23 Time of Service: 13:45 Assessment and Plan Assessment and plan (1) Pathological fracture of right femur: Status: Acute Assessment and plan: Continue oxycodone scheduled Q4 PRN hydromorphone for breakthrough pain PT and OT evaluation in progress for safe ambulation awaiting biopsy report and plan of care. Denies getting up with PT at [facility] [place] orthopedics has been involved and oncology has been involved. As per patient pathology could take 7- 10 days Qualifiers: Encounter type: subsequent encounter Fracture healing: with nonunion Pathology associated with fracture: neoplastic disease Qualified Code(s): M84.551K - Pathological fracture in neoplastic disease, right femur, subsequent encounter for fracture with nonunion (2) Inadequate pain control: Status: Acute Assessment and plan: Improved on current regimen we will continue to assess and adjust as needed (3) Morbid obesity: Status: Chronic Assessment and plan: PCP mangement of lifestyle changes ; long-term weight loss would be helpful.Will need a PCP set-up (4) On deep vein thrombosis (DVT) prophylaxis: Status: Acute Assessment and plan: On lovenox SC (5) Discharge planning issues: Status: Acute Assessment and plan: disposition pending surgical plan Discussed with Dr. Gonzalez Subjective Subjective Patient reports: no new complaints, pain is less, tolerating liquids well, tolerating a regular diet and bowel movement Interval history since last seen: Pain has been better managed on scheduled current regimen she has been eating and drinking. Reports bowel movement today denies any constipation nausea or other issues Exam Const General: no acute distress Nutritional Appearance: obese Orientation: alert, awake and oriented x3 HENMT Head: normal to inspection, normocephalic and atraumatic Mouth: moist mucous membranes Resp Effort & Inspection: normal respiratory effort Extrem Right lower extremity: abnormal to inspection (Knee immobilizer is intact good CSMT's distally) Objective Last Vital Signs Temp 36.4 C L 03/14/23 11:10 Pulse 94 H 03/14/23 11:10 Resp 18 03/14/23 11:10 BP 122/87 03/14/23 11:10 Pulse Ox 96 03/14/23 11:10 Laboratory Results - last 24 hr 03/14/23 07:00 WBC 9.06 RBC 4.00 Hgb 10.6 L Hct 33.3 L MCV 83 MCH 26.5 L MCHC 31.8 L RDW 14.2 Plt Count 404 H MPV 9.4 Immature Gran % 0.3 Neutrophils % 69.8 Lymphocytes % 21.2 Monocytes % 6.3 Eosinophils % 2.1 Basophils % 0.3 Nucleated RBC % 0.0 Absolute Neutrophils 6.32 Absolute Lymphocytes 1.92 Absolute Monocytes 0.57 Absolute Eosinophils 0.19 Absolute Basophils 0.03 Sodium 137 Potassium 3.6 Chloride 99 Carbon Dioxide 29.7 Anion Gap 8.3 BUN 11 Creatinine 0.6 Est GFR (CKD-EPI 2020) 129.27 Glucose 97 Calcium 9.5 Magnesium 1.8 Time Spent with Patient Time Spent with Patient: 25-34 minutes Time was spent: preparing to see the patient(eg.review tests), referring, communicating with other health child care counselor and counseling the patient
[2023-03-14 15:10] VITALS: BP 124/83; PULSE 101; RESP 18; TEMP 36.8; O2SAT 95
--- NOTE | 2023-03-14 15:25 | PTTR_ITS ---
Date of service: 03/14/23 Time of Service: 15:20 PT Notes Visit Reasons: Right Pathologic Femur Fracture Inpatient Physical Therapy Treatment Note [facility] Date: 03/14/23 PRECAUTIONS: Fall, standard, activity as tolerated. NWB RLE. NO KNEE FLEXION RLE. SUBJECTIVE: Patient reports feeling pretty ok today. Is skeptical of participating in physical therapy until this clinician clarifies that we are to work on UE and core strengthening, diaphragmatic breathing, no mobilizing out of bed. OBJECTIVE: Patient in Lua's pose in bed, father, sister, and 9 month old daughter also present. Agreeable to therapy. ? PAIN: reported 06/09. VITALS: monitored by nursing staff. ? ? ? BED MOBILITY/TRANSFERS? Rolling L/R: Max assist of 2 Supine-sit: unable ? Sit-supine: unable ? Sit-stand: unable ? Stand-sit: unable ? Bed-Chair: unable ? Chair-bed: unable ? Therapeutic Exercises (51690w2): Direct one-on-one instruction in therapeutic exercises to develop strength, endurance, range of motion and flexibility. ? Exercises: * bicep curls x10 vs green theraband * tricep extensions x10 vs green theraband * PNF D1 flexion x10 vs doubled red theraband * PNF D1 extension x10 vs doubled red theraband * shoulder horizontal abduction x10 vs green theraband Provided skilled instruction in proper exercise performance Provided skilled manual cues to facilitate proper muscle recruitment and/or form: cues for appropriate muscle recruitment, proper movement form, coordinated breathing. ASSESSMENT:? Patient tolerates therapy well, states that her arms are fatigued at the end of treatment session. PLAN: Continue global strengthening per plan of care until patient undergoes surgery on RLE. Progress per DPT and Orthopedic surgeon's instructions. TREATMENT CODE/TIME: 31 minutes beginning at 14:48
[2023-03-14 19:52] VITALS: BP 120/81; PULSE 105; RESP 16; TEMP 36.7; O2SAT 100
[2023-03-14] MEDS: Methocarbamol 500 MG TAB 1000 MG PO (21:58)
[2023-03-14 22:35] VITALS: BP 127/84; PULSE 107; RESP 18; TEMP 37.2; O2SAT 96
[2023-03-15 00:41] VITALS: O2SAT 96
[2023-03-15] MEDS: Acetaminophen 500 MG TAB 1000 MG PO ×4 (02:14→19:50)
[2023-03-15 02:17] VITALS: BP 130/85; PULSE 108; RESP 18; TEMP 36.8; O2SAT 94
[2023-03-15] MEDS: hydrOXYzine HCL 25 MG TAB PO ×3 (06:08→17:40)
[2023-03-15 07:39] VITALS: BP 123/85; PULSE 85; RESP 16; TEMP 36.9; O2SAT 93
[2023-03-15] MEDS: Zinc Sulfate 220 MG TAB PO (08:15)
[2023-03-15] MEDS: Gabapentin 600 MG TAB PO ×3 (08:31→19:49)
[2023-03-15] MEDS: Enoxaparin 30 MG/0.3 ML SYR SC ×2 (08:39→19:51)
[2023-03-15] MEDS: Cholecalciferol (Vitamin D3) 1,000 UNIT TAB 2000 UNITS PO (08:40)
[2023-03-15] MEDS: Docusate Sodium 100 MG CAP PO (08:40)
[2023-03-15] MEDS: Senna TAB 1 TAB PO ×2 (08:42→20:21)
[2023-03-15] MEDS: Polyethylene Glycol 3350 17 GM PACKET PO (08:42)
--- NOTE | 2023-03-15 10:11 | PGE_ITS ---
Date of Service Date of service: 03/15/23 Time of Service: 10:11 Assessment and Plan Assessment and plan (1) Pathological fracture of right femur: Status: Acute Assessment and plan: Continue oxycodone changing to Q4 as needed PRN hydromorphone for breakthrough pain PT and OT evaluation in progress for safe ambulation awaiting biopsy report and plan of care. Denies getting up with PT at [facility] orthopedics has been involved and oncology has been involved. As per patient pathology could take 7- 10 days Qualifiers: Pathology associated with fracture: neoplastic disease Encounter type: subsequent encounter Fracture healing: with nonunion Qualified Code(s): M84.551K - Pathological fracture in neoplastic disease, right femur, subsequent encounter for fracture with nonunion (2) Inadequate pain control: Status: Resolved Assessment and plan: Improved on current regimen we will continue to assess and adjust as needed (3) Morbid obesity: Status: Chronic Assessment and plan: PCP mangement of lifestyle changes ; long-term weight loss would be helpful.Will need a PCP set-up (4) On deep vein thrombosis (DVT) prophylaxis: Status: Acute Assessment and plan: On lovenox SC (5) Discharge planning issues: Status: Acute Assessment and plan: disposition pending surgical plan Discussed with Dr. Gonzalez Subjective Subjective Patient reports: no new complaints and pain is less Interval history since last seen: Patient remains medically stable while awaiting transfer for surgical repair of her pathologic fracture. Her pain is better managed and today she is requesting to change from scheduled to as needed. She has been eating and drinking well bowels and bladder functioning Exam Const General: no acute distress Nutritional Appearance: obese Orientation: alert, awake and oriented x3 HENMT Head: normal to inspection, normocephalic and atraumatic Mouth: moist mucous membranes Resp Effort & Inspection: normal respiratory effort Extrem Right lower extremity: abnormal to inspection (Knee immobilizer is intact good CSMT's distally) Objective Last Vital Signs Temp 36.9 C 03/15/23 07:39 Pulse 85 03/15/23 07:39 Resp 16 03/15/23 07:39 BP 123/85 03/15/23 07:39 Pulse Ox 93 03/15/23 07:39 Time Spent with Patient Time Spent with Patient: 25-34 minutes Time was spent: preparing to see the patient(eg.review tests), ordering medications,tests, procedures, referring, communicating with other health career placement services counselor and counseling the patient
--- NOTE | 2023-03-15 11:55 | CMPROGNOTE_ITS ---
Date of service: 03/15/23 Time of Service: 11:55 Care Management Progress Note Progress Note Text Progress Note Text: S/O: Lana was sitting up in bed when CM met with her. She stated that she is doing ok today, and that per provider, the preliminary results have come back from [facility] stating that the lesion is likely a giant cell tumor. The provider has contacted [facility] to ask for transfer, but per [facility] she will not be accepted until the results are final. Lana has asked that if [facility] is not able to take her, [facility] is contacted for possible transfer, as she would be happy to have her care at [facility]. Per provider, they will contact [facility] tomorrow to inquire about transfer again. CM will continue to follow. A: Radha is a 22 year old female admitted to [facility] on 03/12/23 for a right pathological femur fracture. P: Radha's plan of care in unclear at this time, while we wait for biopsy results from [facility], which will dictate the next steps for Lana. Currently her pain control is the priority, as she is not able to work with PT until this is achieved. Her family is very supportive, and have been consistently visiting. CM will continue to follow and support Lana through this difficult situation, and advocate for her needs.
--- NOTE | 2023-03-15 11:55 | PDOC.CMPRO ---
Date of service: 03/15/23 Time of Service: 11:55 Care Management Progress Note Progress Note Text Progress Note Text: S/O: Lana was sitting up in bed when CM met with her. She stated that she is doing ok today, and that per provider, the preliminary results have come back from [facility] stating that the lesion is likely a giant cell tumor. The provider has contacted [facility] to ask for transfer, but per [facility] she will not be accepted until the results are final. Lana has asked that if [facility] is not able to take her, [facility] is contacted for possible transfer, as she would be happy to have her care at [facility]. Per provider, they will contact [facility] tomorrow to inquire about transfer again. CM will continue to follow. A: Radha is a 22 year old female admitted to [facility] on 03/12/23 for a right pathological femur fracture. P: Radha's plan of care in unclear at this time, while we wait for biopsy results from [facility], which will dictate the next steps for Lana. Currently her pain control is the priority, as she is not able to work with PT until this is achieved. Her family is very supportive, and have been consistently visiting. CM will continue to follow and support Lana through this difficult situation, and advocate for her needs.
[2023-03-15 12:07] VITALS: BP 138/95; PULSE 91; RESP 18; TEMP 36.4; O2SAT 96
[2023-03-15 15:14] VITALS: BP 136/99; PULSE 96; RESP 18; TEMP 37.2; O2SAT 97
[2023-03-15] MEDS: Mylanta Suspension 30 ML CUP PO ×2 (15:31→19:49)
--- NOTE | 2023-03-15 17:10 | PT.INTREAT ---
Date of service: 03/15/23 Time of Service: 14:20 PT Notes Visit Reasons: Right Pathologic Femur Fracture Inpatient Physical Therapy Treatment Note [facility] Date: 03/15/23 PRECAUTIONS: Fall, standard, activity as tolerated. NWB RLE. Per DPT Gege Gerardo, do not mobilize patient out of bed until clarification comes from [facility]. SUBJECTIVE: Patient reports family will be coming to visit in approximately 45 minutes. Appears happy to be able to see her daughters. OBJECTIVE: Lua's position in bed, agreeable to therapy. Long splint in place RLE. ? PAIN: Reports 5/10, and spikes when she moves wrong. VITALS: monitored by nursing staff.? ? BED MOBILITY/TRANSFERS? Rolling L/R: per patient report, mod assist of 2-3, needs help stabilizing injured leg. Supine-sit: not assessed? Sit-supine: not assessed ? Sit-stand: not assessed ? Stand-sit: not assessed ? Bed-Chair: not assessed ? Chair-bed: not assessed ? Therapeutic Exercises ([id number]): Direct one-on-one instruction in therapeutic exercises to develop strength, endurance, range of motion and flexibility. ? Exercises: horizontal shoulder abduction vs green theraband x10 PNF UE D1 flexion vs red theraband x10 PNF UE D1 extension vs green theraband x10 cross body punch vs green theraband - verbal and visual cues for thoracic rotation. Bicep curls vs green theraband tricep extension vs green theraband. ASSESSMENT:? Patient tolerates therapy well, reports feeling muscle fatigue / muscle burning but not increased pain, no global fatigue. PLAN: Continue UE and core strengthening per plan of care until patient goes for surgery on RLE. TREATMENT CODE/TIME: 22 minutes beginning at 14:20
--- NOTE | 2023-03-15 17:42 | CHAPLAIN ---
Lana is waiting reports from [facility] on a biopsy from her pathological femur fracture. She told me today that she's had a lot of visitors, fairly continually, so she's been tired. The results of the tests from [facility] will determine what type of ortho surgery Lana has. I explained my role and offered support.
[2023-03-15] MEDS: Methocarbamol 500 MG TAB 1000 MG PO (19:50)
[2023-03-15 23:24] VITALS: BP 114/79; PULSE 98; RESP 20; TEMP 36.9; O2SAT 96
[2023-03-16] VITALS (7 sets, daily range): BP systolic 111–125; BP diastolic 75–87; PULSE 89–99; RESP 16–18; TEMP 36.5–37.2; O2SAT 93–98
[2023-03-16] MEDS: hydrOXYzine HCL 25 MG TAB PO ×4 (00:17→18:06)
[2023-03-16 06:42] LABS: Abs Immature Grans 0.02 10^3/uL (0.0-0.06); Absolute Basophil Count 0.03 10^3/uL (0.0-0.2); Absolute Lymphocyte Count 2.34 10^3/uL (1.2-3.4); Absolute Monocyte Count 0.58 10^3/uL (0.1-0.8); Absolute Neutrophil Count 5.68 10^3/uL (1.2-6.7); Basophils % 0.3; Eosinophils % 2.3; HCT 34.1 % (36.0-46.0); HGB 10.7 g/dL (11.2-15.7); Immature Grans % 0.2; Lymphocytes % 26.4; MCH 25.9 pg (27.0-33.0); MCHC 31.4 % (32.0-36.0); MCV 83 fL (80-95); MPV 8.9 fL (8.0-11.0); Monocytes % 6.6; Neutrophils % 64.2; Platelet Count 431 10^3/uL (130-400); RBC 4.13 10^6/uL (3.93-5.22); RDW 14.2 % (11.7-14.6); RDW-SD 42.7 fL; WBC 8.85 10^3/uL (4.4-10.8)
[2023-03-16] MEDS: Enoxaparin 30 MG/0.3 ML SYR SC ×2 (08:45→20:33)
[2023-03-16] MEDS: Acetaminophen 500 MG TAB 1000 MG PO ×3 (08:45→20:32)
[2023-03-16] MEDS: Gabapentin 600 MG TAB PO ×3 (08:47→20:33)
[2023-03-16] MEDS: Zinc Sulfate 220 MG TAB PO (08:47)
[2023-03-16] MEDS: Cholecalciferol (Vitamin D3) 1,000 UNIT TAB 2000 UNITS PO (08:47)
--- NOTE | 2023-03-16 09:41 | CMPROGNOTE_ITS ---
Date of service: 03/16/23 Time of Service: 09:41 Care Management Progress Note Progress Note Text Progress Note Text: S/O: Lana was sitting up in bed when CM met with her. She asked if [facility] [[email or web address] had made a decision on accepting her in transfer. Per report, [facility] [[email or web address] is waiting for the final pathology report; the preliminary report is available at this time. Lana has asked that [facility] [place] contacted for possible transfer as well; CM discussed this with the provider, who will request transfer. Lana also asked if her cast could be adjusted or replaced with a different immobilizer; CM informed the provider of this request. CM will continue to follow. A: Radha is a 22 year old female admitted to [facility] on 03/12/23 for a right pathological femur fracture. P: Radha's plan of care in unclear at this time, while we wait for biopsy results from [facility] [[email or web address] which will dictate the next steps for Lana. Currently her pain control is the priority, as she is not able to work with PT until this is achieved. Her family is very supportive, and have been consistently visiting. CM will continue to follow and support Lana through this difficult situation, and advocate for her needs.
--- NOTE | 2023-03-16 13:10 | PTTR_ITS ---
PT Notes Visit Reasons: Right Pathologic Femur Fracture Inpatient Physical Therapy Treatment Note [facility] Date: 03/16/23 PRECAUTIONS: Fall, standard, activity as tolerated. NWB RLE. NO KNEE FLEXION RLE. SUBJECTIVE: They got the preliminary test results but waiting on the final results before they determine what they are going to do I just got comfortable on the right leg , the cast is digging in OBJECTIVE: Agreeable to therapy. 'As long as no moving of right LE' ? PAIN: reported 05/09, good now that I am in a position the cast isn't rubbing on my leg. Pain left elbow with elbow flexion c/o iv stabbing in arm with flexion, also noted bleeding under bandage. Hold on any left elbow flexion exercises VITALS: monitored by nursing staff. ? ? ? BED MOBILITY/TRANSFERS? Rolling L/R: Max assist of 2 Supine-sit: unable ? Sit-supine: unable ? Sit-stand: unable ? Stand-sit: unable ? Bed-Chair: unable ? Chair-bed: unable ? Therapeutic Procedures ([id number]): Direct one-on-one instruction in therapeutic exercises to develop strength, endurance, range of motion and flexibility. Provided skilled manual cues to facilitate proper muscle recruitment and/or form: cues for appropriate muscle recruitment, proper movement form, coordinated breathing. Discussed maintaining left LE strength with glut sets, single leg bridge beyond what she does for the bed khan, ankle pump. ? Exercises: * bicep curls 2x10 green, blue theraband right only * tricep extensions 2x10 vs green theraband right only * PNF D1 flexion 2x10 green red theraband right only * PNF D1 extension 2x10 green theraband bilateral * chest press 2x10 blue t-band right only * overhead press 2x10 blue t-band right only * shoulder horizontal abduction 2x10 vs green theraband bilateral ASSESSMENT:? Patient tolerates therapy well, states that her arms are fatigued at the end of treatment session. States that she is doing alot with her left LE. PLAN: Continue global strengthening per plan of care until patient undergoes surgery on RLE. Progress per Orthopedic surgeon's instructions. TREATMENT CODE/TIME: [id number] 15 minutes 13:15-13:30
--- NOTE | 2023-03-16 14:50 | PGE_ITS ---
Date of Service Date of service: 03/16/23 Time of Service: 14:50 Assessment and Plan Assessment and plan (1) Pathological fracture of right femur: Status: Acute Assessment and plan: Continue oxycodone changing to Q4 as needed PRN hydromorphone for breakthrough pain PT and OT evaluation in progress for safe ambulation awaiting biopsy report and plan of care. Denies getting up with PT at [facility] orthopedics has been involved and oncology has been involved. As per patient pathology could take 7- 10 days Qualifiers: Encounter type: subsequent encounter Fracture healing: with nonunion Pathology associated with fracture: neoplastic disease Qualified Code(s): M84.551K - Pathological fracture in neoplastic disease, right femur, subsequent encounter for fracture with nonunion (2) Inadequate pain control: Status: Resolved Assessment and plan: Improved on current regimen we will continue to assess and adjust as needed (3) Morbid obesity: Status: Chronic Assessment and plan: PCP mangement of lifestyle changes ; long-term weight loss would be helpful.Will need a PCP set-up (4) On deep vein thrombosis (DVT) prophylaxis: Status: Acute Assessment and plan: On lovenox SC (5) Discharge planning issues: Status: Acute Assessment and plan: disposition pending surgical plan Discussed with Dr. Gonzalez Subjective Subjective Patient reports: no new complaints Exam Const General: no acute distress Nutritional Appearance: obese Orientation: alert, awake and oriented x3 HENMT Head: normal to inspection, normocephalic and atraumatic Mouth: moist mucous membranes Resp Effort & Inspection: normal respiratory effort Extrem Right lower extremity: abnormal to inspection (Knee immobilizer is intact good CSMT's distally) Objective Last Vital Signs Temp 37.2 C 03/16/23 11:18 Pulse 89 03/16/23 11:18 Resp 18 03/16/23 11:18 BP 117/83 03/16/23 11:18 Pulse Ox 95 03/16/23 11:18 Laboratory Results - last 24 hr 03/16/23 06:08 WBC 8.85 RBC 4.13 Hgb 10.7 L Hct 34.1 L MCV 83 MCH 25.9 L MCHC 31.4 L RDW 14.2 Plt Count 431 H MPV 8.9 Immature Gran % 0.2 Neutrophils % 64.2 Lymphocytes % 26.4 Monocytes % 6.6 Eosinophils % 2.3 Basophils % 0.3 Nucleated RBC % 0.0 Absolute Neutrophils 5.68 Absolute Lymphocytes 2.34 Absolute Monocytes 0.58 Absolute Eosinophils 0.20 Absolute Basophils 0.03 Time Spent with Patient Time Spent with Patient: <25 minutes Time was spent: preparing to see the patient(eg.review tests), referring, communicating with other health neonatal critical care nurse and care coordination
[2023-03-17] MEDS: Acetaminophen 500 MG TAB 1000 MG PO ×4 (01:35→20:09)
[2023-03-17] MEDS: hydrOXYzine HCL 25 MG TAB PO ×5 (01:35→23:46)
[2023-03-17] MEDS: Zinc Sulfate 220 MG TAB PO (08:19)
[2023-03-17] MEDS: Cholecalciferol (Vitamin D3) 1,000 UNIT TAB 2000 UNITS PO (08:19)
[2023-03-17] MEDS: Enoxaparin 30 MG/0.3 ML SYR SC ×2 (08:20→20:10)
[2023-03-17] MEDS: Gabapentin 600 MG TAB PO ×3 (08:20→20:10)
--- NOTE | 2023-03-17 08:48 | PTTR_ITS ---
PT Notes Visit Reasons: Right Pathologic Femur Fracture Date: 03/17/23 PRECAUTIONS: Fall, standard, activity as tolerated. NWB RLE. Per DPT Gege Gerardo, do not mobilize patient out of bed until clarification comes from [facility]. SUBJECTIVE: Patient reports pain is under control, agrees to participating with therapy as long as it doesnt require her to move her RLE. OBJECTIVE: Lua's position in bed, agreeable to therapy. Long splint in place RLE. ? PAIN: 2/10 when not moving the RLE, could go up to 10/[address] VITALS: monitored by nursing staff.? ? BED MOBILITY/TRANSFERS? Rolling L/R: per patient report, mod assist of 2, needs help stabilizing injured leg. Supine-sit: not assessed? Sit-supine: not assessed ? Sit-stand: not assessed ? Stand-sit: not assessed ? Bed-Chair: not assessed ? Chair-bed: not assessed Therapeutic Procedures [id number]: Direct one-on-one instruction in therapeutic exercises to develop strength, endurance, range of motion and flexibility. Provided skilled manual cues to facilitate proper muscle recruitment and/or fo rm: cues for appropriate muscle recruitment, proper movement form, coordinated breathing. reviewed left LE glut sets, single leg bridge beyond what she does for the bed khan, ankle pump to help with circulation and strength maintenance. ? Exercises: * bicep curls 2x10 green, blue theraband right only * tricep extensions 2x10 vs green theraband right only * PNF D1 flexion 2x10 green red theraband right only * PNF D1 extension 2x10 green theraband bilateral * chest press 2x10 blue t-band right only * overhead press 2x10 blue t-band right only * shoulder horizontal abduction 2x10 vs green theraband bilateral ASSESSMENT:? Pt reports feeling discouraged and required motivating to be able to focus on task. PLAN: Continue global strengthening per plan of care until patient undergoes surgery on RLE. Progress per Orthopedic surgeon's instructions. TREATMENT CODE/TIME: [id number], 15 mins (8:25-8:40am)
[2023-03-17] MEDS: Methocarbamol 500 MG TAB 1000 MG PO ×2 (15:09→20:10)
[2023-03-17 16:34] VITALS: BP 118/80; PULSE 84; RESP 16; TEMP 36.9; O2SAT 98
--- NOTE | 2023-03-17 17:19 | PGE_ITS ---
Date of Service Date of service: 03/17/23 Time of Service: 17:20 Assessment and Plan Assessment and plan (1) Pathological fracture of right femur: Status: Acute Assessment and plan: Continue oxycodone changing to Q4 as needed PRN hydromorphone for breakthrough pain PT and OT evaluation in progress for safe ambulation awaiting biopsy report and plan of care. Denies getting up with PT at [facility] orthopedics has been involved and oncology has been involved. As per transfer center pathology could take 7- 10 days Qualifiers: Encounter type: subsequent encounter Fracture healing: with nonunion Pathology associated with fracture: neoplastic disease Qualified Code(s): M84.551K - Pathological fracture in neoplastic disease, right femur, subsequent encounter for fracture with nonunion (2) Morbid obesity: Status: Chronic Assessment and plan: PCP mangement of lifestyle changes ; long-term weight loss would be helpful.Will need a PCP set-up (3) On deep vein thrombosis (DVT) prophylaxis: Status: Acute Assessment and plan: On lovenox SC (4) Discharge planning issues: Status: Acute Assessment and plan: disposition pending surgical plan Discussed with Dr. Siegel Subjective Subjective Patient reports: no new complaints, pain is less, tolerating liquids well, tolerating a regular diet, bowel movement and afebrile Exam Const General: no acute distress Nutritional Appearance: obese Orientation: alert, awake and oriented x3 HENMT Head: normal to inspection, normocephalic and atraumatic Mouth: moist mucous membranes Resp Effort & Inspection: normal respiratory effort Extrem Right lower extremity: abnormal to inspection (Knee immobilizer is intact good CSMT's distally) Objective Last Vital Signs Temp 36.9 C 03/17/23 16:34 Pulse 84 03/17/23 16:34 Resp 16 03/17/23 16:34 BP 118/80 03/17/23 16:34 Pulse Ox 98 03/17/23 16:34 Time Spent with Patient Time Spent with Patient: <25 minutes Time was spent: preparing to see the patient(eg.review tests), ordering medications,tests, procedures, indepentently interpreting results and counseling the patient
[2023-03-17 20:13] VITALS: BP 117/90; PULSE 106; RESP 18; TEMP 37.3; O2SAT 96
[2023-03-18 00:22] VITALS: BP 114/77; PULSE 104; RESP 18; TEMP 37.8; O2SAT 98
[2023-03-18] MEDS: Methocarbamol 500 MG TAB 1000 MG PO (06:16)
[2023-03-18] MEDS: hydrOXYzine HCL 25 MG TAB PO ×3 (06:16→16:50)
[2023-03-18 06:23] VITALS: BP 116/81; PULSE 94; RESP 18; TEMP 36.7; O2SAT 95
[2023-03-18 08:01] VITALS: BP 128/81; PULSE 67; RESP 18; TEMP 36.8; O2SAT 96
[2023-03-18] MEDS: Acetaminophen 500 MG TAB 1000 MG PO ×3 (08:41→20:23)
[2023-03-18] MEDS: Zinc Sulfate 220 MG TAB PO (08:42)
[2023-03-18] MEDS: Gabapentin 600 MG TAB PO ×3 (08:42→20:23)
[2023-03-18] MEDS: Enoxaparin 30 MG/0.3 ML SYR SC (08:42)
[2023-03-18] MEDS: Cholecalciferol (Vitamin D3) 1,000 UNIT TAB 2000 UNITS PO (08:42)
[2023-03-18 11:30] VITALS: BP 126/85; PULSE 83; RESP 18; TEMP 36.5; O2SAT 97
--- NOTE | 2023-03-18 13:20 | PTTR_ITS ---
PT Notes Visit Reasons: Right Pathologic Femur Fracture Date: 03/18/23 PRECAUTIONS: Fall, standard, activity as tolerated. NWB RLE. Per DPT Gege Gerardo, do not mobilize patient out of bed until clarification comes from [facility]. SUBJECTIVE: Pt approached multile times during the course of the morning and noo n time, pt sleeping and was not able to participate with therapy until after lunch. OBJECTIVE: Lua's position in bed, agreeable to therapy. Long splint in place RLE. ? PAIN: 2/10 when not moving the RLE, could go up to 10/[address] VITALS: monitored by nursing staff.? ? BED MOBILITY/TRANSFERS? Rolling L/R: per patient report, mod assist of 2, needs help stabilizing injured leg. Supine-sit: not assessed? Sit-supine: not assessed ? Sit-stand: not assessed ? Stand-sit: not assessed ? Bed-Chair: not assessed ? Chair-bed: not assessed Therapeutic Procedures [id number]: Direct one-on-one instruction in therapeutic exercises to develop strength, endurance, range of motion and flexibility. Provided skilled manual cues to facilitate proper muscle recruitment and/or form: cues for appropriate muscle recruitment, proper movement form, coordinated breathing. Exercises: * bicep curls 2x10 green, blue theraband * tricep extensions 2x10 vs green theraband * PNF D1 flexion 2x10 green red theraband * PNF D1 extension 2x10 green theraband bilateral * chest press 2x10 blue t-band * overhead press 2x10 blue t-band * shoulder horizontal abduction 2x10 vs green theraband bilateral ASSESSMENT:? Pt able to complete exercise wih verbal cue, requires cuing for compliance, green, red and blue theraband provided to pt for exercise when pt remembers. PLAN: Continue global strengthening per plan of care until patient undergoes surgery on RLE. Progress per Orthopedic surgeon's instructions. TREATMENT CODE/TIME: [id number], 20 mins (1:00-1:20pm)
--- NOTE | 2023-03-18 14:52 | PGE_ITS ---
Date of Service Date of service: 03/18/23 Time of Service: 14:52 Assessment and Plan Assessment and plan (1) Pathological fracture of right femur: Status: Acute Assessment and plan: Continue oxycodone changing to Q4 as needed PRN hydromorphone for breakthrough pain PT and OT evaluation in progress for safe ambulation awaiting biopsy report and plan of care. Denies getting up with PT at [facility] orthopedics has been involved and oncology has been involved. As per transfer center, pathology could take 7- 10 days Qualifiers: Encounter type: subsequent encounter Fracture healing: with nonunion Pathology associated with fracture: neoplastic disease Qualified Code(s): M84.551K - Pathological fracture in neoplastic disease, right femur, subsequent encounter for fracture with nonunion (2) Morbid obesity: Status: Chronic Assessment and plan: PCP mangement of lifestyle changes ; long-term weight loss would be helpful.Will need a PCP set-up (3) On deep vein thrombosis (DVT) prophylaxis: Status: Acute Assessment and plan: On lovenox SC (4) Discharge planning issues: Status: Acute Assessment and plan: disposition pending surgical plan Discussed with Dr. Siegel Subjective Subjective Patient reports: no new complaints, pain is less, tolerating liquids well, tolerating a regular diet, voiding w/o difficulty (using external female catheter, has menses) and afebrile Exam Const General: no acute distress Nutritional Appearance: obese Orientation: alert, awake and oriented x3 HENMT Head: normal to inspection, normocephalic and atraumatic Mouth: moist mucous membranes Resp Effort & Inspection: normal respiratory effort Extrem Right lower extremity: abnormal to inspection (Knee immobilizer is intact good CSMT's distally) Objective Last Vital Signs Temp 36.5 C 03/18/23 11:30 Pulse 83 03/18/23 11:30 Resp 18 03/18/23 11:30 BP 126/85 03/18/23 11:30 Pulse Ox 97 03/18/23 11:30 Time Spent with Patient Time Spent with Patient: <25 minutes Time was spent: preparing to see the patient(eg.review tests), referring, communicating with other health primary care sales representative, indepentently interpreting results and counseling the patient
[2023-03-18 15:44] VITALS: BP 117/81; PULSE 90; RESP 18; TEMP 36.9; O2SAT 97
[2023-03-18] MEDS: Enoxaparin 40 MG/0.4 ML SYR SC (20:23)
[2023-03-18 20:25] VITALS: BP 115/83; PULSE 86; RESP 20; TEMP 37.3; O2SAT 98
[2023-03-19 01:17] VITALS: BP 117/76; PULSE 111; RESP 20; TEMP 37.4; O2SAT 97
[2023-03-19] MEDS: hydrOXYzine HCL 25 MG TAB PO ×2 (06:37→13:16)
[2023-03-19 06:44] VITALS: BP 115/79; PULSE 95; RESP 20; TEMP 36.7; O2SAT 96
[2023-03-19 06:48] LABS: Abs Immature Grans 0.03 10^3/uL (0.0-0.06); Absolute Basophil Count 0.04 10^3/uL (0.0-0.2); Absolute Eosinophil Count 0.18 10^3/uL (0.0-0.7); Absolute Lymphocyte Count 2.77 10^3/uL (1.2-3.4); Absolute Monocyte Count 0.63 10^3/uL (0.1-0.8); Absolute Neutrophil Count 4.94 10^3/uL (1.2-6.7); Basophils % 0.5; Eosinophils % 2.1; HCT 36.4 % (36.0-46.0); HGB 11.2 g/dL (11.2-15.7); Immature Grans % 0.3; Lymphocytes % 32.2; MCH 25.6 pg (27.0-33.0); MCHC 30.8 % (32.0-36.0); MCV 83 fL (80-95); MPV 8.8 fL (8.0-11.0); Monocytes % 7.3; Neutrophils % 57.6; Platelet Count 484 10^3/uL (130-400); RBC 4.37 10^6/uL (3.93-5.22); RDW 14.1 % (11.7-14.6); RDW-SD 42.9 fL; WBC 8.59 10^3/uL (4.4-10.8)
[2023-03-19 07:49] VITALS: BP 119/81; PULSE 89; RESP 16; TEMP 37.4; O2SAT 95
[2023-03-19] MEDS: Acetaminophen 500 MG TAB 1000 MG PO ×2 (09:25→13:16)
[2023-03-19] MEDS: Cholecalciferol (Vitamin D3) 1,000 UNIT TAB 2000 UNITS PO (09:25)
[2023-03-19] MEDS: Gabapentin 600 MG TAB PO ×2 (09:25→13:16)
[2023-03-19] MEDS: Zinc Sulfate 220 MG TAB PO (09:25)
[2023-03-19] MEDS: Enoxaparin 40 MG/0.4 ML SYR SC (09:25)
--- NOTE | 2023-03-19 10:05 | PDOC.CMPRO ---
Date of service: 03/19/23 Time of Service: 10:05 Care Management Progress Note Progress Note Text Progress Note Text: S/O: Radha will transition to SWB 1 today for continued PT and pain control, while awaiting surgery at a tertiary facility; [facility] CM will continue to follow. A: Radha is a 22 year old female admitted to [facility] on 03/12/23 for a right pathological femur fracture. P: Radha will transition to SWB 1 today, awaiting surgery at a tertiary facility. Currently her pain control is the priority, as she is not able to work with PT until this is achieved. Her family is very supportive, and have been consistently visiting. CM will continue to follow and support Lana through this difficult situation, and advocate for her needs.
--- NOTE | 2023-03-19 11:20 | W.PM.DS.N ---
Date of service: 03/19/23 Time of Service: 11:20 DS: Diagnosis Discharge Diagnosis (1) Pathological fracture of right femur: Status: Acute (2) Morbid obesity: Status: Chronic Discharge Plan Disposition Patient Disposition: Swing Bed(Skilled,SB1) Condition: Stable Discharge Details Reason For Visit: Right Pathologic Femur Fracture Admit Date/Time: 03/12/23 19:49 Admit Provider: Evan Perez Attending Provider: Evan Perez Primary Care Provider: Ananda Sterling Hospital Course Hospital Course: from acute chart: This is a 22-year-old female patient who had gradual onset of right knee pain worse with weightbearing over the last 2 months started out as an achiness and then progressing to where she could not bear weight and had to walk cautiously upstairs and on flat surfaces. The day of presentation to the ED 03/07/2023, she slipped on a record changer assembler on the floor and felt a pop in her right knee bringing her to the ground. She was evaluated to have a pathologic fracture of her distal right femur. There appeared to be a tumor associated and she was transferred to [facility] for evaluation. 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 There is no record of the oncology consultation which should be obtained. The diagnosis is unclear at this time and she is awaiting pathology and plan for repair or treatment. She is non-weightbearing with a rigid splint around her right knee and required pain management with physical therapy and Occupational Therapy to assess for safe ambulation. She has no chronic medical problems other than obesity. She is a full code. She was accepted by hospitalist services under acute status for pain management which was initially challenging but is now managed well with mostly nonnarcotics. She has been working with physical therapy. Now that her pain is well-managed the plan is to discharge her to swing bed for ongoing physical therapy while awaiting her final pathology report and repair. She is being discharged to swing bed 1. Case is discussed with Dr. Christal Danielson [facility] and New Rx's Prescriptions: No Action acetaminophen 500 mg tablet 1,000 mg PO Q6H PRN (Reason: pain, fever) cholecalciferol (vitamin D3) 50 mcg (2,000 unit) capsule 50 mcg PO DAILY docusate sodium 100 mg capsule 200 mg PO BID enoxaparin 30 mg/0.3 mL syringe 30 mg subcut Q12H gabapentin 300 mg capsule 300 mg PO TID hydromorphone 0.5 mg/0.5 mL syringe 0.5 mg subcut Q4H PRN (Reason: pain) hydroxyzine HCl 25 mg tablet 25 mg PO Q6H ibuprofen 600 mg tablet 600 mg PO Q6H PRN (Reason: fever or pain) lorazepam 1 mg tablet 1 mg PO BID PRN (Reason: anxiety) methocarbamol 500 mg tablet 1,000 mg PO Q6H PRN (Reason: muscle spasm) oxycodone 5 mg tablet 15 mg PO Q4H PRN (Reason: pain) Rx Instructions: Take 1-3 tablets PO Q4H PRN pain polyethylene glycol 3350 17 gram powder in packet 17 g PO DAILY sennosides [senna] 8.6 mg tablet 17.2 mg PO BID zinc sulfate 50 mg zinc (220 mg) tablet 50 mg PO DAILY Discharge Instructions Activity:: Activity as Tolerated Equipment/Supplies:: No Equipment Needed Diet:: As Tolerated Discharge Orders Discharge Orders: Discharge Order (Routine); Ordered 03/19/23 Ordered By: Karis Mueller Discharge Data Discharge Date/Time-TO BE ENTERED AT DEPARTURE: 03/19/23 13:52 DS: Summary Time Spent with Patient providing and/or coordinating discharge services: Greater than 30 minutes Status at Discharge Functional status at discharge: bed bound Overall status at discharge: patient is not back to baseline Mental Status: mental status grossly normal Speech and Movement: speech and movement normal Mood: congruent mood Affect: normal affect Exam Const General: no acute distress Nutritional Appearance: obese Orientation: alert, awake and oriented x3 HENMT Head: normal to inspection, normocephalic and atraumatic Mouth: moist mucous membranes Resp Effort & Inspection: normal respiratory effort Extrem Right lower extremity: abnormal to inspection (Knee immobilizer is intact good CSMT's distally) Psych Mental Status: mental status grossly normal Speech and Movement: speech and movement normal Mood: congruent mood Affect: normal affect DS: Data Vitals/I&O Vitals and I&O: Vital Signs Temperature 37.4 C 03/19/23 07:49 Temperature Source Tympanic 03/19/23 07:49 Pulse 89 03/19/23 07:49 Pulse Rhythm Regular 03/19/23 03:08 Respiratory Rate 16 03/19/23 07:49 Respiratory Effort Normal, Non-Labored 03/19/23 03:08 Respiratory Depth Normal 03/19/23 03:08 Respiratory Pattern Normal 03/19/23 03:08 Blood Pressure 119/81 03/19/23 07:49 Pulse Oximetry 95 03/19/23 07:49 Oxygen Delivery Method Room Air 03/19/23 07:49 Oxygen Flow Rate 0 03/19/23 07:49 Pain Level 0 03/19/23 07:49 Comment nurse notified. 03/18/23 00:22 Intake & Output 03/18/23 03/18/23 03/19/23 11:59 23:59 11:59 Output Total 1150 / 1700 550 / 1700 900 / 900 Balance -1150 / -1700 -550 / -1700 -900 / -900 Output: Urine 1150 / 1700 550 / 1700 900 / 900 Other: Urine Color Sanchez Sanchez Urine Appearance Clear Clear Urine Odor Normal Comment Purewick. Purewick. dark - mixed with heavy menstration; external catheter Stool Size Large Large Stool Characteristics Soft Formed Formed Brown Data Completed and Pending Labs on day of discharge: Labs from last 24 hours 03/19/23 06:33 WBC 8.59 RBC 4.37 Hgb 11.2 Hct 36.4 MCV 83 MCH 25.6 L MCHC 30.8 L RDW 14.1 Plt Count 484 H MPV 8.8 Immature Gran % 0.3 Neutrophils % 57.6 Lymphocytes % 32.2 Monocytes % 7.3 Eosinophils % 2.1 Basophils % 0.5 Nucleated RBC % 0.0 Absolute Neutrophils 4.94 Absolute Lymphocytes 2.77 Absolute Monocytes 0.63 Absolute Eosinophils 0.18 Absolute Basophils 0.04 PFSH All Active Problems (Updated 03/15/23 @ 16:26 by Karis Mueller NP) On deep vein thrombosis (DVT) prophylaxis (Acute) Discharge planning issues (Acute) Pathological fracture of right femur (Acute) Pathological fracture, right femur, initial encounter for fracture (Acute 03/07/23) Rh negative state in antepartum period (Acute) (Acute) Morbid obesity (Chronic) Migraine headache without aura (Acute) Idiopathic intracranial hypertension (Acute) Stopped Acetazolamide (Diamox) with +UPT. H/A is sx of ICH. Medical History History of miscarriage Surgical History Hx of tonsillectomy Family History Father Well adult Mother Well adult Sister IIH (idiopathic intracranial hypertension) Social History Smoking/Tobacco Use Status: Current every day Tobacco Type: smokeless tobacco Quit status: considering quitting Counseling given: provider counseling Smoking risk assessment performed?: Yes Alcohol Intake: never Drug use: Never Household members: family and other Details: 04/2020.BF Govind. together 3mo prior to . Not involved. Housing: house Number of Children: 1 Education Level: high school current occupation: Not employed. Friend Rod is working at [employer] and will support them. Pets and animals: Yes Pets and animals: dog(s) What is your relationship status?: never Panel score (0-1 are the most socially isolated patients): 0 What type of physical activity do you participate in: none Seatbelt use: always Do you feel safe at home: Yes Do you feel safe in your relationship?: Yes History History 4 Para 1 Hx # Term Pregnancies 1 Multiple births 0 Hx # Pregnancies 0 Ectopic pregnancies 0 AB induced 0 Hx Number of Living Children 1 AB spontaneous 2 Past Pregnancies Del. Date GA/Weeks # Preg Succ Route Wgt Sex Labor Lgth Anesthesia Location [facility] 12/08/20 39 No Yes vaginal 3333.904 g Female 12 hrs [facility] due to cranial HTN 07/15/21 Delivery Date: 12/08/20 Last Updated by: Yina Tello IOL, nml , some stitches, tried unsuccessfully to breastfeed [place] Delivery Date: 07/15/21 Last Updated by: Josefina Myers M.D. early SAB, +home test, then bleeding/clots. Also had early miscarriage in her teens. Time Spent with Patient Time Spent with Patient: 45-69 minutes Time was spent: preparing to see the patient(eg.review tests), obtaining and/or reviewing separately otained hiistory, ordering medications,tests, procedures, referring, communicating with other health home care associate, indepentently interpreting results, counseling the patient and care coordination
[2023-03-19 11:41] VITALS: BP 114/81; PULSE 98; RESP 16; TEMP 36.5; O2SAT 97
== END 2023-03-19 13:52 | disposition swing bed (61) | DRG 543 ==
PROVIDERS: Family Medicine; Internal Medicine; Nurse Practitioner Acute Care; Admitting Provider Family Medicine; PCP Internal Medicine; Visit Provider Family Medicine
DX: M84.551A Pathological fracture in neoplastic disease, right femur, initial encounter for fracture (principal); Z68.42 Body mass index [BMI] 45.0-49.9, adult; G89.3 Neoplasm related pain (acute) (chronic); E66.01 Morbid (severe) obesity due to excess calories; G93.2 Benign intracranial hypertension; F17.290 Nicotine dependence, other tobacco product, uncomplicated; G43.009 Migraine without aura, not intractable, without status migrainosus; Z79.899 Other long term (current) drug therapy
CPT/HCPCS: 00123; 36415; 80048; 80053; 85027; 87635; 97110; 97163; J1650; 83735; 84443; 85025; 99222; 99232; 99239; J1170; J1885

== ENCOUNTER 2023-03-19 14:03 | Inpatient (IN) | payer MEDICAID, SELFPAY ==
--- NOTE | 2023-03-19 14:09 | HPE_ITS ---
Date of service: 03/19/23 Time of Service: 14:09 Assessment and Plan Assessment and plan (1) Pathological fracture of right femur: Status: Acute Assessment and plan: Continue oxycodone changing to Q4 as needed PRN hydromorphone for breakthrough pain PT and OT evaluation in progress for safe ambulation awaiting biopsy report and plan of care. Denies getting up with PT at [facility] orthopedics has been involved and oncology has been involved. As per transfer center, pathology could take 7- 10 days Qualifiers: Encounter type: subsequent encounter Fracture healing: with nonunion Pathology associated with fracture: neoplastic disease Qualified Code(s): M84.551K - Pathological fracture in neoplastic disease, right femur, subsequent encounter for fracture with nonunion (2) Morbid obesity: Status: Chronic Assessment and plan: PCP mangement of lifestyle changes ; long-term weight loss would be helpful.Will need a PCP set-up (3) On deep vein thrombosis (DVT) prophylaxis: Status: Acute Assessment and plan: On lovenox SC (4) Discharge planning issues: Status: Acute Assessment and plan: disposition pending pathology report and surgical plan Discussed with Dr. 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 There appeared to be a tumor associated and she was transferred to [facility] for evaluation. 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 She has no chronic medical problems other than obesity. She is a full code. Her pain management was initially challenging but is now managed well with mostly nonnarcotics. She has been working with physical therapy. Medically she has remained stable. She is being admitted to swing bed 1. Case is discussed with Dr. Siegel Review of Systems Narrative: 13 point review of systems otherwise unrevealing or stable. PFSH All Active Problems (Updated 03/15/23 @ 16:26 by Karis uMeller NP) On deep vein thrombosis (DVT) prophylaxis (Acute) Discharge planning issues (Acute) Pathological fracture of right femur (Acute) Pathological fracture, right femur, initial encounter for fracture (Acute 03/07/23) Rh negative state in antepartum period (Acute) (Acute) Morbid obesity (Chronic) Migraine headache without aura (Acute) Idiopathic intracranial hypertension (Acute) Stopped Acetazolamide (Diamox) with +UPT. H/A is sx of ICH. Medical History History of miscarriage Surgical History Hx of tonsillectomy Family History Father Well adult Mother Well adult Sister IIH (idiopathic intracranial hypertension) Social History Smoking/Tobacco Use Status: Current every day Tobacco Type: smokeless tobacco Quit status: considering quitting Counseling given: provider counseling Smoking risk assessment performed?: Yes Alcohol Intake: never Drug use: Never Household members: family and other Details: 04/2020.BF Govind. together 3mo prior to . Not involved. Housing: house Number of Children: 1 Education Level: high school current occupation: Not employed. Friend Rod is working at [employer] and will support them. Pets and animals: Yes Pets and animals: dog(s) What is your relationship status?: never Panel score (0-1 are the most socially isolated patients): 0 What type of physical activity do you participate in: none Seatbelt use: always Do you feel safe at home: Yes Do you feel safe in your relationship?: Yes History History 4 Para 1 Hx # Term Pregnancies 1 Multiple births 0 Hx # Pregnancies 0 Ectopic pregnancies 0 AB induced 0 Hx Number of Living Children 1 AB spontaneous 2 Past Pregnancies Del. Date GA/Weeks # Preg Succ Route Wgt Sex Labor Lgth Anesth esia Location Prov Complic 12/08/20 39 No Yes vaginal 3333.904 g Female 12 hrs [facility] due to cranial HTN 07/15/21 Delivery Date: 12/08/20 Last Updated by: Yina Tlelo IOL, nml , some stitches, tried unsuccessfully to breastfeed [place] Delivery Date: 07/15/21 Last Updated by: Josefina Myers M.D. early SAB, +home test, then bleeding/clots. Also had early miscarriage in her teens. Meds Allergies and Home Medications Allergies Allergy/AdvReac Type Severity Reaction Status Date / Time No Known Allergies Allergy Verified 06/12/22 15:10 Home Medications Medication Instructions Recorded Confirmed Type acetaminophen 500 mg tablet 1,000 mg PO Q6H PRN pain, fever 03/12/23 03/19/23 History cholecalciferol (vitamin D3) 50 50 mcg PO DAILY 03/12/23 03/19/23 History mcg (2,000 unit) capsule docusate sodium 100 mg capsule 200 mg PO BID 03/12/23 03/19/23 History enoxaparin 30 mg/0.3 mL 30 mg subcut Q12H 03/12/23 03/19/23 History subcutaneous syringe gabapentin 300 mg capsule 300 mg PO TID 03/12/23 03/19/23 History hydromorphone 0.5 mg/0.5 mL 0.5 mg subcut Q4H PRN pain 03/12/23 03/19/23 History injection syringe hydroxyzine HCl 25 mg tablet 25 mg PO Q6H 03/12/23 03/19/23 History ibuprofen 600 mg tablet 600 mg PO Q6H PRN fever or pain 03/12/23 03/19/23 History lorazepam 1 mg tablet 1 mg PO BID PRN anxiety 03/12/23 03/19/23 History methocarbamol 500 mg tablet 1,000 mg PO Q6H PRN muscle spasm 03/12/23 03/19/23 History oxycodone 5 mg tablet 15 mg PO Q4H PRN pain 03/12/23 03/19/23 History polyethylene glycol 3350 17 gram 17 g PO DAILY 03/12/23 03/19/23 History oral powder packet sennosides 8.6 mg tablet (senna) 17.2 mg PO BID 03/12/23 03/19/23 History zinc sulfate 50 mg zinc (220 mg) 50 mg PO DAILY 03/12/23 03/19/23 History tablet Exam Const General: no acute distress Nutritional Appearance: obese Orientation: alert, awake and oriented x3 HENMT Head: normal to inspection, normocephalic and atraumatic Mouth: moist mucous membranes Resp Effort & Inspection: normal respiratory effort Extrem Right lower extremity: abnormal to inspection (Knee immobilizer is intact good CSMT's distally) Psych Mental Status: mental status grossly normal Speech and Movement: speech and movement normal Mood: congruent mood Affect: normal affect Time Spent Time spent with Patient: 40-54 minutes Time was spent: preparing to see the patient(eg.review tests), ordering medications,tests, procedures, referring, communicating with other health care clinician, counseling the patient and care coordination
[2023-03-19 15:23] VITALS: BP 116/80; PULSE 81; RESP 16; TEMP 37.1; O2SAT 98
--- NOTE | 2023-03-19 17:00 | CMSA_ITS ---
Date of service: 03/19/23 Time of Service: 17:00 SB Psychosocial/Act. Assmt Hospital Admission Admission Date: 03/12/23 Admission From:: [facility] Diagnosis:: right pathological femur fracture Swing Bed Admission Swing Bed Admit Date:: 03/19/23 Swing Bed Level of Care: Level 1/SNF Social Supports PREVIOUS FUNCTIONAL STATUS/SOCIAL/FAMILY SUPPORTS:: Radha lives in [facility] with her fianceHarjeet, and their two daughters, who are two and nine months old. 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 She is independent at baseline. Prior to Admission Living Arrangements/Environment Prior to Admission:: Single family home with s/o and two young children. Steps to get into the home. 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 Benefits Financial: Medicaid Congregational Active Yazidism Member:: No Advance Directives for Healthcare If no AD, do you want more information:: No Interests Crafts:: adult coloring, sketching TV/Movies:: tv/movies, video games Other Activities:: spending time with her children, family and friends Present Functional Status Physical Abilities:: limited due to fracture at this time; independent at baseline Cognitive:: intact Communication:: clear, appropriate Sensory Systems: WNL Behavior:: calm, appropriate Medical History PAST MEDICAL HISTORY/PAST SURGICAL HISTORY:: All Active Problems Pathological fracture of right femur (Acute) Pathological fracture, right femur, initial encounter for fracture (Acute 03/07/23) Rh negative state in antepartum period (Acute) (Acute) Morbid obesity (Chronic) Migraine headache without aura (Acute) Idiopathic intracranial hypertension (Acute) Stopped Acetazolamide (Diamox) with +UPT. H/A is sx of ICH. Medical History History of miscarriage Surgical History Hx of tonsillectomy Admission Data Reason for Swing Bed Admission:: safe discharge; will need surgery at [facility] vs [facility] Discharge Plan:: Radha will remain at [facility] awaiting surgery for pathological femur fracture; will discharge to tertiary facility Assessment: Radha is in SWB 1 working with PT on strengthening and mobility, and nursing for pain control. Once her surgery date is planned, she will discharge to the o/p appointment. She will continue discharge planning with tertiary facility team following surgery. Shipfitter Helper: Jennifer Wilson Date Assessment was completed:: 03/19/23
--- NOTE | 2023-03-19 17:06 | PDOC.CMPRO ---
Date of service: 03/19/23 Time of Service: 17:06 Care Management Progress Note Progress Note Text Progress Note Text: S/O: Radha will transition to SWB 1 today for continued PT and pain control, while awaiting surgery at a tertiary facility; [facility] [place] [facility] CM will continue to follow. A: Radha is a 22 year old female admitted to [facility] on 03/12/23 for a right pathological femur fracture. P: Radha will transition to SWB 1 today, awaiting surgery at a tertiary facility. Currently her pain control is the priority, as she is not able to work with PT until this is achieved. Her family is very supportive, and have been consistently visiting. CM will continue to follow and support Lana through this difficult situation, and advocate for her needs.
--- NOTE | 2023-03-19 17:07 | CM.SWINGPC ---
Date of service: 03/19/23 Time of Service: 17:07 Swingbed Plan of Care Activites/Discharge Plan of care: SWING BED PROGRAM ACTIVITIES/DISCHARGE PLAN OF CARE ACTIVITIES PLAN Date: 03/19/23 Identified Need: Life enrichment during prolonged hospitalization/SWB stay Intervention/Plan: cart activities, tv, video games, visits with family and friends. Initials KM DISCHARGE PLAN Date: 03/19/23 Identified Need: Surgery at tertiary facility Intervention/Plan: Awaiting final pathology report and next steps from tertiary facility to support discharge planning needs. Initials KM
[2023-03-19 17:28] VITALS: BP 116/80; PULSE 81; RESP 18; TEMP 37.1; O2SAT 98
[2023-03-19] MEDS: hydrOXYzine HCL 25 MG TAB PO ×2 (17:28→23:31)
[2023-03-19] MEDS: Enoxaparin 40 MG/0.4 ML SYR SC (19:40)
[2023-03-19] MEDS: Acetaminophen 500 MG TAB 1000 MG PO (19:41)
[2023-03-19] MEDS: Gabapentin 600 MG TAB PO (19:41)
[2023-03-19] MEDS: Senna TAB 1 TAB PO (19:41)
[2023-03-20 00:13] VITALS: BP 117/82; PULSE 108; RESP 18; TEMP 36.7; O2SAT 99
[2023-03-20] MEDS: Acetaminophen 500 MG TAB 1000 MG PO ×4 (01:24→19:33)
[2023-03-20] MEDS: Enoxaparin 40 MG/0.4 ML SYR SC ×2 (08:25→19:34)
[2023-03-20] MEDS: Cholecalciferol (Vitamin D3) 1,000 UNIT TAB 2000 UNITS PO (08:26)
[2023-03-20] MEDS: Senna TAB 1 TAB PO (08:26)
[2023-03-20] MEDS: Gabapentin 600 MG TAB PO ×3 (08:26→19:34)
[2023-03-20] MEDS: Zinc Sulfate 220 MG TAB PO (08:29)
[2023-03-20] MEDS: hydrOXYzine HCL 25 MG TAB PO ×2 (12:32→17:53)
--- NOTE | 2023-03-20 15:03 | IN_ITS ---
PT Notes Visit Reasons: Right Pathologic Femur Fracture Physical Therapy Swing Bed Level I Initial Evaluation Date: 03/20/2023 Referring Doctor: Karis Mueller NP PT Orders: PT CONSULT: Eval/Treat Precautions: Fall. Standard. NWB on the R LE with AD. Patient Profile/Admitting Diagnosis: Brenna is a 22-year-old female with pathologic fracture of the distal right femur and a large lytic lesion in the lateral femoral condyle. She converted to swing bed level I of care as of 05/19/2022. IMPRESSION from R LE MRI on 03/07/2023: 1. 5.1 x 4.5 x 6.6 cm well-circumscribed lesion in the distal lateral femoral condyle. Differential considerations include giant cell tumor or bone cyst. Neoplastic process is felt to be less likely. 2. Pathologic fracture involving the distal femur through the bony lesion extending inferiorly into the intercondylar notch. 3. Hemarthrosis. IMPRESSION from R Knee x-ray on 03/07/2023: 1. Pathologic fracture through the lytic lesion involving the lateral femoral condyle. 2. Moderate joint effusion. 3. Lytic distal femoral lesion as described before. Differential considerations include aneurysmal bone cyst, giant cell tumor or simple bone cyst among other etiologies. CT and MRI should be considered for further evaluation. PMHX: All Active Problems (Updated 03/07/23 @ 12:30 by Maximo Salas MD) Pathological fracture, right femur, initial encounter for fracture (Acute) Rh negative state in antepartum period (Acute) (Acute) Morbid obesity (Acute) Migraine headache without aura (Acute) Idiopathic intracranial hypertension (Acute) Stopped Acetazolamide (Diamox) with +UPT. H/A is sx of ICH. Medical History (Updated 03/07/23 @ 12:30 by Maximo Salas MD) History of miscarriage Surgical History Hx of tonsillectomy Social History/Home Situation: Independent with all aspects of ADLs prior to surgery. Equipment Owned/DME: None Subjective: Happy to hear the good news from KAYLEE Dyson that she may have surgery at [facility] any day next week. Agreeable to continuing with PT while she waits for the surgery. Objective: General Observation: Resting in bed. PETEY wraps to the whole R LE now loose. Long leg R knee immobilizer seems to have moved. Mental Status: Alert and oriented as to person, place, time, and purpose. Able to pay attention, focus, and respond appropriately. Pain: 4-5/10 with movement Vital Signs: Monitored by nursing staff ROM: Right Lower Extremity: Able to wiggle toes. Still apprehensive about moving lower extremity but now able to lift pelvis off floor for toileting and perineal care. Left Lower Extremity: Hip flexion WFL. Hip abduction WFL. Knee flexion WFL. Ankle dorsiflexion WFL. Ankle plantarflexion WFL. Strength: Right Lower Extremity: Hip flexors 1/5. Hip abductors 1/5. Knee flexors 1/5. Knee extensors 1/5. Ankle dorsiflexors 1/5. Ankle plantarflexors 1/5. Left Lower Extremity: Hip flexors 4/5. Hip abductors 4/5. Knee flexors 5/5. Knee extensors 5/5. Ankle dorsiflexors 5/5. Ankle plantarflexors 5/5. Bed Mobility/Transfers: Able to use B UE to lift head and trunk to use bed khan for bowel movement with less pain report on the R LE. Gait: Deferred Balance: Static Sitting: Good Dynamic Sitting: Good Static Standing: Unable to test Dynamic Standing: Unable to test Special Tests: Mobility Limitations Standardized Measure [facility] AM-PAC 6 clicks Basic Mobility Inpatient Short Form: Raw Score: 8 CMS Score: 87% deficit Informed Consent/Education: Patient was instructed in purpose of PT consult and plan of care and is agreeable. ASSESSMENT: Patient has been accepted for surgery at [facility] and will be scheduled in the next week or so per KAYLEE Dyson. Will focus on continued B UE/L LE and core strengthening as pre-rehab for upcoming surgery. Patient continues to present with clinical signs and symptoms consistent with current/admitting diagnoses that have resulted to mobility limitations, gait instability, generalized weakness, and overall ADL decline as demonstrated by the following impairment level findings: 1. Decreased strength to R LE major muscle groups 2. Impaired sitting/standing balance 3. Impaired activity tolerance 4. Limitation of joint range of motion in R LE joints 5. High BMI Impairments are contributing to the following functional limitations: 1. Decline in bed mobility skills 2. Decline in transfer skills 3. Inability to perform ambulation without assistive device and physical assistance 4. Increased completion time for mobility ADL performance 5. Increased risk for falls 6. Difficulty with managing steps alone safely Patient is assessed as a 05164 high complexity based on the following: History: 22-year-old female with past medical history as indicated above Examination: Demonstrable impairment in strength, balance, and mobility level with underlying impairments and functional limitations as exhibited above as w ell as deficit score of 87% utilizing the [facility] Mobility Inpatient Short Form Presentation: Unstable Decision Makin moderate complexity GOALS: Goals X1 week 1. Patient will develop strength on B UE latissimus dorsi and B UE elbow /shoulder extensors to allow for independent pelvic elevation and performance of bed push ups during toileting tasks using bed khan. 2. Patient will be independent with performing quarterturn to the R using L LE and L UE while HOB is at least 45 degrees to allow for ability to perform pericare. 3. Patient will develop core strength to allow for increased static and dynamic stability while performing walking ehen cleared by orthopedic surgeon AFTER ORIF of R distal femur fracture. Plan of Care/Treatment Plan: 3x/week for 1 week for continued B UE/L LE and core strengthening. Plan of care has been reviewed with the EXHAUST EMISSIONS INSPECTOR providing the service under Physical Therapy direction. Initiate Physical Therapy intervention for pain management as needed, strengthening, bed mobility, transfers, gait, stairs, balance training, and use of assistive device. Exercise focus: bed push ups/pelvic elevation/depression x 10 with focus on slow descent partial roll/quarterturn to R using L LE and L UE x 10 modified partial bridge with L knee bent and R LE supported with pillows x 5 2 sets overhead triceps curls using 3 lb DB x 5 for 2 sets DISCHARGE RECOMMENDATIONS: [] Home with no services [] [] Home with services [specify] [] Home with outpatient PT [] [X] SNF for continued rehabilitation. Patient will benefit from usp facility placement for continued skilled physical therapy services in order to progress mobility level, strength, and balance in preparation for a safe discharge to home. [] Residential Care [] [] SNF versus LTC based on ability to participate and progress [] TREATMENT CODE/TIME: 19487 x 20 minutes for 1 unit beginning at 14:12 PM. Thank you for the opportunity to participate in the care of this patient. Gege Gerardo PT, DPT, CLT [facility] [place], [place]
[2023-03-21 00:05] VITALS: BP 124/81; PULSE 93; RESP 16; TEMP 37.2; O2SAT 97
[2023-03-21 08:23] VITALS: BP 111/74; PULSE 81; RESP 19; TEMP 36.6; O2SAT 90
[2023-03-21] MEDS: Acetaminophen 500 MG TAB 1000 MG PO ×3 (08:48→19:44)
[2023-03-21] MEDS: Gabapentin 600 MG TAB PO ×3 (08:49→19:44)
[2023-03-21] MEDS: Cholecalciferol (Vitamin D3) 1,000 UNIT TAB 2000 UNITS PO (08:49)
[2023-03-21] MEDS: Enoxaparin 40 MG/0.4 ML SYR SC ×2 (08:49→19:45)
[2023-03-21] MEDS: Zinc Sulfate 220 MG TAB PO (08:49)
[2023-03-21] MEDS: hydrOXYzine HCL 25 MG TAB PO ×2 (12:53→17:46)
--- NOTE | 2023-03-21 13:08 | PTTR_ITS ---
Date of service: 03/21/23 Time of Service: 12:49 PT Notes Visit Reasons: Right Pathologic Femur Fracture Inpatient Physical Therapy Treatment Note [facility] Date: 03/21/23 PRECAUTIONS: Fall,standard, activity as tolerated. NWB RLE. SUBJECTIVE: Patient reports feeling ok. Eager to get her surgery over with. Looking forward to being home for Holli. Inquires whether her surgery and post op weightbearing status will affect her ability to return to work. 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 OBJECTIVE: Long sitting in bed with HOB elevated near-max. Agreeable to therapy. ? PAIN: none reported VITALS: monitored by nursing staff ? ? BED MOBILITY/TRANSFERS? Rolling L/R: Not assessed Supine-sit: Not assessed ? Sit-supine: Not assessed ? Sit-stand: Not assessed ? Stand-sit: Not assessed ? Bed-Chair: Not assessed ? Chair-bed: Not assessed ? Therapeutic Exercises ([id number]): Direct one-on-one instruction in therapeutic exercises to develop strength, endurance, range of motion and flexibility. ? Exercises: * UE PNF D1 flexion vs doubled red theraband, anchored to bedside rail, 2x10 * UE PNF D1 extension vs doubled red theraband, anchored to bedside rail, 2x10 * tricep extensions vs doubled green theraband, self anchored, 2x10 * bed pushups 2x10 * rows vs blue theraband with clinician anchor 2x10 * lat press downs vs blue theraband with clinician anchor 2x10 Provided skilled instruction in proper exercise performance Provided skilled manual cues to facilitate proper muscle recruitment and/or form: cues to activate TA before each PNF movement. ASSESSMENT:? Patient tolerates therapy well, no c/o increased pain, no dyspnea PLAN: Continue global strengthening per plan of care until patient achieves safe discharge plan. TREATMENT CODE/TIME: 19 minutes beginning at 12:49
[2023-03-21 16:05] VITALS: BP 130/92; PULSE 88; RESP 20; TEMP 37.1; O2SAT 98
--- NOTE | 2023-03-21 16:54 | CHAPLAIN ---
Lana found out today that she[place] be [place] [facility] [place] on the [place]. She's not yet sure what the surgery will entail as they're dealing with a tumor on her leg and a fracture. She was scheduled for the surgery at [facility], but not until later in March. With her surgery scheduled for next week, she hopes to be home in time for [place] with her young daughters. I gave Lana a prayer shawl, and will continue to visit.
[2023-03-21] MEDS: Senna TAB 1 TAB PO (19:44)
[2023-03-21 22:23] VITALS: BP 122/85; PULSE 86; RESP 20; TEMP 37.3; O2SAT 98
[2023-03-22] MEDS: hydrOXYzine HCL 25 MG TAB PO ×4 (00:47→17:08)
[2023-03-22] MEDS: Acetaminophen 500 MG TAB 1000 MG PO ×4 (00:48→19:41)
[2023-03-22 07:22] LABS: HCT 35.2 % (36.0-46.0); MCH 25.8 pg (27.0-33.0); MCHC 31.3 % (32.0-36.0); MCV 82 fL (80-95); MPV 8.9 fL (8.0-11.0); Platelet Count 493 10^3/uL (130-400); RBC 4.27 10^6/uL (3.93-5.22); RDW 14.1 % (11.7-14.6); RDW-SD 42.6 fL; WBC 8.67 10^3/uL (4.4-10.8)
[2023-03-22] MEDS: Enoxaparin 40 MG/0.4 ML SYR SC ×2 (09:36→19:41)
[2023-03-22] MEDS: Cholecalciferol (Vitamin D3) 1,000 UNIT TAB 2000 UNITS PO (09:36)
[2023-03-22] MEDS: Zinc Sulfate 220 MG TAB PO (09:36)
[2023-03-22] MEDS: Gabapentin 600 MG TAB PO ×3 (09:36→19:41)
[2023-03-22 09:59] VITALS: BP 121/82; PULSE 91; RESP 22; O2SAT 97
--- NOTE | 2023-03-22 10:05 | W.PM.PROGNOT ---
Date of Service Date of service: 03/22/23 Time of Service: 10:05 Assessment and Plan Assessment and plan (1) Pathological fracture of right femur: Status: Acute Assessment and plan: Continue paln as previously outlined Continue oxycodone changing to Q4 as needed PRN hydromorphone for breakthrough pain Neurontin scheduled will complete LFT's in AM PT and OT evaluation in progress for safe ambulation awaiting biopsy report and plan of care. Denies getting up with PT at [facility] [place] has been involved and oncology has been involved. As per transfer center, pathology could take 7- 10 days Qualifiers: Encounter type: subsequent encounter Fracture healing: with nonunion Pathology associated with fracture: neoplastic disease Qualified Code(s): M84.551K - Pathological fracture in neoplastic disease, right femur, subsequent encounter for fracture with nonunion (2) Morbid obesity: Status: Chronic Assessment and plan: As previoulsy mentioned : PCP mangement of lifestyle changes ; long-term weight loss would be helpful.Will need a PCP set-up (3) On deep vein thrombosis (DVT) prophylaxis: Status: Acute Assessment and plan: Continue lovenox SC (4) Discharge planning issues: Status: Acute Assessment and plan: disposition pending pathology report and surgical plan. Surgery at [facility] on 03/[address] Miner Subjective Subjective Patient reports: no new complaints, feels better, pain is less, tolerating liquids well, tolerating a regular diet, flatus and bowel movement; denies diarrhea, nausea, vomiting, shortness of breath or fever Exam Narrative Exam Narrative: Constitutional The patient is sitting in chair/ lying in bed comfortable and cooperative during the interview. The patient is well groomed without acute distress and has average body habitus/is obese/ is thin. HENMT: Head is atraumatic, normocephalic, no lymphadenopathy. Facial structures with normal appearance Eyes: Well aligned, intact ROM Neck: Normal ROM, no meningeal signs Neuro:alert and oriented to self, person, place time and situation. No neurological focal deficit, PERRLA Chest:Chest is symmetrical and normal appearance Resp: Normal respiratory pattern, speaks in full sentences, unlabored breathing, clear lung bilaterally Cardio: regular rhythm, S1, S2, no murmur, capillary refill<3 sec., bilateral radial and dorsalis pedis pulses are positive, palpable GI: Abdomen is not distended, soft and non tender, bowel sounds are present : Negative Costovertebral angle tenderness, no bladder distension Back/spine/Pelvis: No back tenderness, normal alignment Integumentary: No skin lesions or rash Extremities: strength 5/5 to bilateral lower and upper extremities Psych: RASS 0, congruent mood and normal affect. Const General: no acute distress Nutritional Appearance: obese Orientation: alert, awake and oriented x3 HENMT Head: normal to inspection and atraumatic Mouth: moist mucous membranes Eyes General: appearance normal, both eyes and all related structures Neck Neck: normal visual inspection, full ROM and no meningeal signs Chest Chest: normal inspection of the chest Resp Effort & Inspection: normal respiratory effort Auscultation: clear to auscultation bilaterally Cardio Jugular venous pressure: no JVD Rate: regular rate Rhythm: regular rhythm Skin General skin exam: no rashes or lesions noted Neuro General: normal light touch, pain and propioception Extrem Right lower extremity: abnormal to inspection (Knee immobilizer is intact good CSMT's distally) and ROM limited Psych Mental Status: mental status grossly normal Speech and Movement: speech and movement normal Mood: congruent mood Affect: normal affect Objective Last Vital Signs Temp 37.3 C 03/21/23 22:23 Pulse 91 H 03/22/23 09:59 Resp 22 03/22/23 09:59 BP 121/82 03/22/23 09:59 Pulse Ox 97 03/22/23 09:59 Laboratory Results - last 24 hr 03/22/23 06:10 WBC 8.67 RBC 4.27 Hgb 11.0 L Hct 35.2 L MCV 82 MCH 25.8 L MCHC 31.3 L RDW 14.1 Plt Count 493 H MPV 8.9 Time Spent with Patient Time Spent with Patient: >50 minutes Time was spent: preparing to see the patient(eg.review tests), ordering medications,tests, procedures, referring, communicating with other health care management associate, indepentently interpreting results, counseling the patient and care coordination
[2023-03-22 15:59] VITALS: BP 107/75; PULSE 89; RESP 18; TEMP 36.3; O2SAT 99
[2023-03-22] MEDS: Senna TAB 1 TAB PO (19:41)
[2023-03-22 19:46] VITALS: BP 112/77; PULSE 89; RESP 16; TEMP 36.1; O2SAT 98
[2023-03-23] MEDS: hydrOXYzine HCL 25 MG TAB PO ×3 (01:03→17:47)
[2023-03-23] MEDS: Acetaminophen 500 MG TAB 1000 MG PO ×4 (01:03→20:35)
[2023-03-23 07:17] LABS: Abs Immature Grans 0.03 10^3/uL (0.0-0.06); Absolute Basophil Count 0.06 10^3/uL (0.0-0.2); Absolute Eosinophil Count 0.25 10^3/uL (0.0-0.7); Absolute Lymphocyte Count 3.94 10^3/uL (1.2-3.4); Absolute Monocyte Count 0.63 10^3/uL (0.1-0.8); Basophils % 0.6; Eosinophils % 2.7; HCT 35.5 % (36.0-46.0); HGB 11.2 g/dL (11.2-15.7); Immature Grans % 0.3; Lymphocytes % 41.9; MCHC 31.5 % (32.0-36.0); MCV 82 fL (80-95); MPV 9.1 fL (8.0-11.0); Monocytes % 6.7; Neutrophils % 47.8; Platelet Count 505 10^3/uL (130-400); RBC 4.31 10^6/uL (3.93-5.22); RDW 14.1 % (11.7-14.6); RDW-SD 41.9 fL; WBC 9.41 10^3/uL (4.4-10.8)
[2023-03-23 07:40] LABS: ALT 21 U/L (14-59); AST 11 U/L (15-37); Albumin 2.9 g/dL (3.4-5.0); Alkaline Phosphatase 62 U/L (46-116); Anion Gap 6.2 mmol/L (3-11); BUN 15 mg/dL (7-18); Bilirubin, Total 0.2 mg/dL (0.2-1.0); CO2 28.8 mmol/L (21.0-32.0); CREATININE 0.7 mg/dL (0.55-1.02); Calcium 9.7 mg/dL (8.5-10.1); Chloride 103 mmol/L (98-107); Estimated GFR 124.55 (mL/min/1.73m2); Glucose 92 mg/dL (74-106); Magnesium 1.9 mg/dL (1.8-2.4); Sodium 138 mmol/L (136-145); Total Protein 7.2 g/dL (6.4-8.2)
[2023-03-23 07:44] LABS: Bilirubin, Direct < 0.1 mg/dL (0.0-0.2)
[2023-03-23 08:30] VITALS: BP 115/78; PULSE 80; RESP 18; TEMP 36.5; O2SAT 96
[2023-03-23] MEDS: Enoxaparin 40 MG/0.4 ML SYR SC ×2 (08:54→20:34)
[2023-03-23] MEDS: Cholecalciferol (Vitamin D3) 1,000 UNIT TAB 2000 UNITS PO (08:54)
[2023-03-23] MEDS: Gabapentin 600 MG TAB PO ×3 (08:54→20:35)
[2023-03-23] MEDS: Zinc Sulfate 220 MG TAB PO (08:54)
[2023-03-23] MEDS: Senna TAB 1 TAB PO ×2 (08:54→20:50)
[2023-03-23 15:20] VITALS: BP 119/84; PULSE 78; RESP 18; TEMP 36.7; O2SAT 98
--- NOTE | 2023-03-23 15:28 | PTTR_ITS ---
Date of service: 03/23/23 Time of Service: 15:11 PT Notes Visit Reasons: Right Pathologic Femur Fracture Inpatient Physical Therapy Treatment Note [facility] Date: 03/23/23 PRECAUTIONS: Fall, standard, activity as tolerated. NWB RLE. Knee extension brace on at all times RLE. SUBJECTIVE: Patient reports feeling pretty good, glad to have surgery scheduled for Wednesday 03/28. OBJECTIVE: Patient long sitting in bed, agreeable to therapy. ? PAIN: none reported, as long as patient doesn't try to move RLE. VITALS: monitored by nursing staff. ? BED MOBILITY/TRANSFERS? Rolling L/R: not assessed Supine-sit: not assessed ? Sit-supine: not assessed ? Sit-stand: not assessed ? Stand-sit: not assessed ? Bed-Chair: not assessed ? Chair-bed: not assessed ? Therapeutic Exercises (25245r2): Direct one-on-one instruction in therapeutic exercises to develop strength, endurance, range of motion and flexibility. ? Exercises: * UE PNF D1 flexion 2x10 vs doubled green theraband * UE PNF D1 extension 2x10 vs doubled blue theraband * tricep extensions vs doubled blue theraband * bicep curls vs single blue theraband * shoulder horizontal abduction vs blue theraband * rows vs blue and green theraband held together. * SLR 2x10 LLE only * quad sets x10 with 5 second hold, LLE only * glute sets x10 with 5 second hold, bilateral. Provided skilled instruction in proper exercise performance Provided skilled manual cues to facilitate proper muscle recruitment and/or form. ASSESSMENT:? Patient tolerates therapy well. PLAN: Continue strengthening per plan of care until patient receives surgery RLE, at which point the plan of care will change. TREATMENT CODE/TIME: 16 minutes beginning at 15:11
[2023-03-24] MEDS: Acetaminophen 500 MG TAB 1000 MG PO ×4 (01:12→20:20)
[2023-03-24] MEDS: hydrOXYzine HCL 25 MG TAB PO ×4 (01:13→18:09)
[2023-03-24 01:18] VITALS: BP 138/84; PULSE 95; RESP 16; TEMP 37.2; O2SAT 97
[2023-03-24] MEDS: Enoxaparin 40 MG/0.4 ML SYR SC ×2 (08:37→20:19)
[2023-03-24] MEDS: Cholecalciferol (Vitamin D3) 1,000 UNIT TAB 2000 UNITS PO (08:38)
[2023-03-24] MEDS: Gabapentin 600 MG TAB PO ×3 (08:38→20:20)
[2023-03-24] MEDS: Zinc Sulfate 220 MG TAB PO (08:38)
[2023-03-24] MEDS: Senna TAB 1 TAB PO ×2 (08:38→20:20)
[2023-03-24 08:45] VITALS: BP 129/80; PULSE 68; RESP 18; TEMP 36.4; O2SAT 96
[2023-03-24 16:15] VITALS: BP 109/71; PULSE 88; RESP 18; TEMP 36.9; O2SAT 98
[2023-03-24 21:04] VITALS: BP 124/83; PULSE 85; RESP 20; TEMP 36.7; O2SAT 99
[2023-03-25] MEDS: hydrOXYzine HCL 25 MG TAB PO ×3 (01:49→17:41)
[2023-03-25] MEDS: Acetaminophen 500 MG TAB 1000 MG PO ×4 (01:49→20:27)
[2023-03-25 08:02] VITALS: BP 106/69; PULSE 76; RESP 17; TEMP 36.9; O2SAT 97
[2023-03-25] MEDS: Enoxaparin 40 MG/0.4 ML SYR SC ×2 (08:48→20:26)
[2023-03-25] MEDS: Cholecalciferol (Vitamin D3) 1,000 UNIT TAB 2000 UNITS PO (08:48)
[2023-03-25] MEDS: Senna TAB 1 TAB PO ×2 (08:49→20:28)
[2023-03-25] MEDS: Zinc Sulfate 220 MG TAB PO (08:49)
[2023-03-25] MEDS: Gabapentin 600 MG TAB PO ×3 (08:50→20:28)
[2023-03-25 15:38] VITALS: BP 111/74; PULSE 82; RESP 17; TEMP 36.8; O2SAT 98
[2023-03-26] MEDS: hydrOXYzine HCL 25 MG TAB PO ×3 (00:14→17:57)
[2023-03-26 00:18] VITALS: BP 127/82; PULSE 95; RESP 16; TEMP 37.2; O2SAT 95
[2023-03-26 07:27] LABS: Abs Immature Grans 0.02 10^3/uL (0.0-0.06); Absolute Basophil Count 0.04 10^3/uL (0.0-0.2); Absolute Eosinophil Count 0.21 10^3/uL (0.0-0.7); Absolute Lymphocyte Count 3.01 10^3/uL (1.2-3.4); Absolute Monocyte Count 0.57 10^3/uL (0.1-0.8); Absolute Neutrophil Count 5.02 10^3/uL (1.2-6.7); Basophils % 0.5; Eosinophils % 2.4; HCT 34.7 % (36.0-46.0); HGB 11.1 g/dL (11.2-15.7); Immature Grans % 0.2; Lymphocytes % 33.9; MCH 26.4 pg (27.0-33.0); MCV 83 fL (80-95); MPV 9.3 fL (8.0-11.0); Monocytes % 6.4; Neutrophils % 56.6; Platelet Count 478 10^3/uL (130-400); RDW 14.4 % (11.7-14.6); RDW-SD 42.5 fL; WBC 8.87 10^3/uL (4.4-10.8)
[2023-03-26] MEDS: Acetaminophen 500 MG TAB 1000 MG PO ×3 (09:12→19:56)
[2023-03-26] MEDS: Zinc Sulfate 220 MG TAB PO (09:12)
[2023-03-26] MEDS: Senna TAB 1 TAB PO ×2 (09:13→19:57)
[2023-03-26] MEDS: Gabapentin 600 MG TAB PO ×3 (09:13→19:56)
[2023-03-26] MEDS: Cholecalciferol (Vitamin D3) 1,000 UNIT TAB 2000 UNITS PO (09:13)
[2023-03-26 09:15] VITALS: BP 131/82; PULSE 81; RESP 17; TEMP 37.3; O2SAT 96
--- NOTE | 2023-03-26 14:07 | PTTR_ITS ---
PT Notes Visit Reasons: Right Pathologic Femur Fracture Date: 03/26/23 PRECAUTIONS: Fall, standard, activity as tolerated. NWB RLE. Knee extension brace on at all times RLE. SUBJECTIVE: Pt expressing frustration about current situation, happy about surgery this coming Sunday. required motivating to get pt to participate with therapy. OBJECTIVE: Patient long sitting in bed, agreeable to therapy. ? PAIN: none reported VITALS: monitored by nursing staff. ? BED MOBILITY/TRANSFERS? Rolling L/R: not assessed Supine-sit: not assessed ? Sit-supine: not assessed ? Sit-stand: not assessed ? Stand-sit: not assessed ? Bed-Chair: not assessed ? Chair-bed: not assessed ? Therapeutic Exercises ([id number]): Direct one-on-one instruction in therapeutic exercises to develop strength, endurance, range of motion and flexibility. ? Exercises: * UE PNF D1 flexion 2x10 vs doubled green theraband * UE PNF D1 extension 2x10 vs doubled blue theraband * tricep extensions vs doubled blue theraband * bicep curls vs single blue theraband * shoulder horizontal abduction vs blue theraband * rows vs blue and green theraband held together. * SLR 2x10 LLE only * quad sets x10 with 5 second hold, LLE only * glute sets x10 with 5 second hold, bilateral. Provided skilled instruction in proper exercise performance Provided skilled manual cues to facilitate proper muscle recruitment and/or form. ASSESSMENT:? Patient tolerates therapy well. Pt education about importance of routine structure exercise for pre op for bilateral UE to prepare pt for AD usage, answered pt questions about surgery, possible outcomes, precautions and expectations from surgery, pt reports understanding. PLAN: Continue strengthening per plan of care until patient receives surgery RLE, at which point the plan of care will change. TREATMENT CODE/TIME: [id number] 20 mins (1:35-1:55pm)
[2023-03-26 15:53] VITALS: BP 115/80; PULSE 92; RESP 16; TEMP 37.1; O2SAT 95
[2023-03-27] MEDS: Zinc Sulfate 220 MG TAB PO (10:03)
[2023-03-27] MEDS: Cholecalciferol (Vitamin D3) 1,000 UNIT TAB 2000 UNITS PO (10:03)
[2023-03-27] MEDS: Senna TAB 1 TAB PO (10:04)
[2023-03-27] MEDS: Acetaminophen 500 MG TAB 1000 MG PO ×3 (10:04→20:46)
[2023-03-27] MEDS: Gabapentin 600 MG TAB PO ×3 (10:05→20:47)
[2023-03-27 10:07] VITALS: BP 110/77; PULSE 73; RESP 17; TEMP 37; O2SAT 95
[2023-03-27] MEDS: hydrOXYzine HCL 25 MG TAB PO ×2 (12:53→17:22)
--- NOTE | 2023-03-27 13:25 | W.PM.DS.N ---
Date of service: 03/27/23 Time of Service: 13:25 DS: Diagnosis Discharge Diagnosis (1) Pathological fracture of right femur: Status: Acute (2) Morbid obesity: Status: Chronic Discharge Plan Disposition Patient Disposition: Home Condition: Stable Discharge Details Reason For Visit: Right Pathologic Femur Fracture Admit Date/Time: 03/19/23 14:03 Admit Provider: Karis Mueller Attending Provider: Laxmi Siegel Primary Care Provider: Ananda Sterling Hospital Course Hospital Course: This is a 22-year-old female patient who who presented to our emergency department on March 07, 2023 following a mechanical fall while slipping on a paperhanger pipe diagnosed with pathologic fracture of her distal right femur. There appeared to be a tumor associated and she was transferred to [facility] for evaluation. 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 She has no chronic medical problems other than obesity. She is a full code. Her pain management was initially challenging but is now managed well with mostly nonnarcotics. She has been working with physical therapy. Medically she has remained stable. She was admitted to community hospital bed 1. biopsy did confirm giant cell tumor. We did reach out to Dr Pathak at [facility] who is planning on surgical repair 03/28/2023. she is being transported by ground EMS with unstable fracture and intractable pain with movement. discharge discussed with DR Gonzalez Levelland Meds and New Rx's Prescriptions: No Action acetaminophen 500 mg tablet 1,000 mg PO Q6H PRN (Reason: pain, fever) cholecalciferol (vitamin D3) 50 mcg (2,000 unit) capsule 50 mcg PO DAILY docusate sodium 100 mg capsule 200 mg PO BID enoxaparin 30 mg/0.3 mL syringe 30 mg subcut Q12H gabapentin 300 mg capsule 300 mg PO TID hydromorphone 0.5 mg/0.5 mL syringe 0.5 mg subcut Q4H PRN (Reason: pain) hydroxyzine HCl 25 mg tablet 25 mg PO Q6H ibuprofen 600 mg tablet 600 mg PO Q6H PRN (Reason: fever or pain) lorazepam 1 mg tablet 1 mg PO BID PRN (Reason: anxiety) methocarbamol 500 mg tablet 1,000 mg PO Q6H PRN (Reason: muscle spasm) oxycodone 5 mg tablet 15 mg PO Q4H PRN (Reason: pain) Rx Instructions: Take 1-3 tablets PO Q4H PRN pain polyethylene glycol 3350 17 gram powder in packet 17 g PO DAILY sennosides [senna] 8.6 mg tablet 17.2 mg PO BID zinc sulfate 50 mg zinc (220 mg) tablet 50 mg PO DAILY Discharge Instructions Instructions: Leg Fracture (DC) Additional Instructions: You are being discharged from [facility]. You are scheduled for surgery at [facility] on Monday March 27, 2023 and are to arrive at [address] [place] [address] (same day program) at 9:15 am. You will be transported by ambulance. Activity:: non weight bearing Equipment/Supplies:: No Equipment Needed Diet:: NPO DS: Summary Time Spent with Patient providing and/or coordinating discharge services: Less than 30 minutes Status at Discharge Functional status at discharge: bed bound Overall status at discharge: patient is not back to baseline Mental Status: mental status grossly normal Speech and Movement: speech and movement normal Mood: congruent mood Affect: normal affect Exam Const General: no acute distress Nutritional Appearance: obese Orientation: alert, awake and oriented x3 HENMT Head: normal to inspection, normocephalic and atraumatic Mouth: moist mucous membranes Resp Effort & Inspection: normal respiratory effort Extrem Right lower extremity: abnormal to inspection (Knee immobilizer is intact good CSMT's distally) Other: good csmt's distally. Psych Mental Status: mental status grossly normal Speech and Movement: speech and movement normal Mood: congruent mood Affect: normal affect DS: Data Vitals/I&O Vitals and I&O: Vital Signs Temperature 37.0 C 03/27/23 10:07 Temperature Source Tympanic 03/27/23 10:07 Pulse 73 03/27/23 10:07 Pulse Rhythm Regular 03/26/23 15:03 Respiratory Rate 17 03/27/23 10:07 Respiratory Effort Normal 03/26/23 15:03 Respiratory Depth Normal 03/26/23 15:03 Respiratory Pattern Normal 03/26/23 15:03 Blood Pressure 110/77 03/27/23 10:07 Pulse Oximetry 95 03/27/23 10:07 Oxygen Delivery Method Room Air 03/27/23 10:07 Oxygen Flow Rate 0 03/27/23 10:07 Pain Level 0 03/27/23 10:07 Comment refused vitals 03/27/23 04:15 Intake & Output 03/26/23 03/27/23 03/27/23 23:59 11:59 23:59 Output Total 700 / 2000 450 / 450 Balance -700 / -1700 -450 / -450 Output: Urine 700 / 2000 450 / 450 Other: Urine Color Yellow Straw Urine Appearance Clear Clear Comment Purewick. purewick Stool Size Large Stool Characteristics Soft Brown PFSH All Active Problems (Updated 03/15/23 @ 16:26 by Karis Mueller NP) On deep vein thrombosis (DVT) prophylaxis (Acute) Discharge planning issues (Acute) Pathological fracture of right femur (Acute) Pathological fracture, right femur, initial encounter for fracture (Acute 03/07/23) Rh negative state in antepartum period (Acute) (Acute) Morbid obesity (Chronic) Migraine headache without aura (Acute) Idiopathic intracranial hypertension (Acute) Stopped Acetazolamide (Diamox) with +UPT. H/A is sx of ICH. Medical History History of miscarriage Surgical History Hx of tonsillectomy Family History Father Well adult Mother Well adult Sister IIH (idiopathic intracranial hypertension) Social History Smoking/Tobacco Use Status: Current every day Tobacco Type: smokeless tobacco Quit status: considering quitting Counseling given: provider counseling Smoking risk assessment performed?: Yes Alcohol Intake: never Drug use: Never Household members: family and other Details: 04/2020.POLI Govind. together 3mo prior to . Not involved. Housing: house Number of Children: 1 Education Level: high school current occupation: Not employed. Friend Rod is working at [employer] and will support them. Pets and animals: Yes Pets and animals: dog(s) What is your relationship status?: never Panel score (0-1 are the most socially isolated patients): 0 What type of physical activity do you participate in: none Seatbelt use: always Do you feel safe at home: Yes Do you feel safe in your relationship?: Yes History History 4 Para 1 Hx # Term Pregnancies 1 Multiple births 0 Hx # Pregnancies 0 Ectopic pregnancies 0 AB induced 0 Hx Number of Living Children 1 AB spontaneous 2 Past Pregnancies Del. Date GA/Weeks # Preg Succ Route Wgt Sex Labor Lgth Anesthesia Location Prov Complic 12/08/20 39 No Yes vaginal 3333.904 g Female [address] [facility] due to cranial HTN 07/15/21 Delivery Date: 12/08/20 Last Updated by: Yina Tello IOL, nml , some stitches, tried unsuccessfully to breastfeed [place] Delivery Date: 07/15/21 Last Updated by: Josefina Myers M.D. early SAB, +home test, then bleeding/clots. Also had early miscarriage in her teens. Time Spent with Patient Time Spent with Patient: <45 minutes Time was spent: preparing to see the patient(eg.review tests), ordering medications,tests, procedures, indepentently interpreting results, counseling the patient and care coordination
--- NOTE | 2023-03-27 16:23 | CHAPLAIN ---
After a wait of more than a week, Lana will be transferred to [facility] tomorrow for surgery. She said she's her surgery is scheduled for 9:30 a.m. and she could be discharge home after that. She has two small children at home. One is staying with her dad for now until Lana gets home. Lana has been passing the time sketching and coloring. She's relieved to finally be getting to [facility] for the surgery.
[2023-03-27 18:27] VITALS: BP 127/83; PULSE 94; RESP 16; TEMP 36.7; O2SAT 96
[2023-03-27 22:43] VITALS: BP 109/78; PULSE 94; RESP 18; TEMP 36.9; O2SAT 99
[2023-03-28] MEDS: hydrOXYzine HCL 25 MG TAB PO ×2 (01:10→05:45)
[2023-03-28] MEDS: Acetaminophen 500 MG TAB 1000 MG PO (01:10)
[2023-03-28 07:10] VITALS: BP 112/76; PULSE 63; RESP 18; TEMP 36.5; O2SAT 96
--- NOTE | 2023-03-28 17:41 | CMDISCH_ITS ---
Date of service: 03/28/23 Time of Service: 17:41 LACE Index Scoring Tool Questions: Length of Stay (in days): 7 - 13 Was the patient admitted via the E.D.?: Yes E.D. Visits: 1 Answers: Total Score: 9 Risk of Readmission: Low Risk Care Management Discharge Plan Reason for Hospitalization: Right pathological femur fracture Discharge Plan: Radha was discharged today, and transported via [facility] to [facility] where she will have surgery on her leg. She is happy to be going to [facility], and happy to be moving forward with her treatment plan. Patient/Family Education Needs: Review discharge instructions and limitations, discussion of self care needs including ask me three. Services Needed at Discharge: Transportation (EMS)
== END 2023-03-28 07:57 | disposition home or self-care (01) | DRG 565 ==
PROVIDERS: Family Medicine; Internal Medicine; Nurse Practitioner Acute Care; Admitting Provider Nurse Practitioner Acute Care; PCP Internal Medicine; Visit Provider Internal Medicine
DX: M84.551 Pathological fracture in neoplastic disease, right femur (principal); Z68.42 Body mass index [BMI] 45.0-49.9, adult; E66.01 Morbid (severe) obesity due to excess calories; W19.XXXD Unspecified fall, subsequent encounter; G43.009 Migraine without aura, not intractable, without status migrainosus; G93.2 Benign intracranial hypertension; D48.0 Neoplasm of uncertain behavior of bone and articular cartilage
CPT/HCPCS: 00123; 36415; 80048; 80076; 85027; 97110; 97162; 99305; 99309; 99316; J1650; 83735; 85025

== ENCOUNTER → 2023-09-07 01:04 | Outpatient (CLI) | payer MEDICAID, SELFPAY ==
--- NOTE | 2023-09-07 | DI.CT_ITS ---
Exam(s) CT LOWER EXTREMITY RT WO EXAM: CT LOWER EXTREMITY RT WO CLINICAL HISTORY: GIANT CELL TUMOR OF BONE,d48.0,BIOPSY PLANNING,H/O ABNL XR AND US. TECHNIQUE: Imaging Protocol: Axial computed tomography images with coronal and sagittal reformatted images were created and reviewed. CONTRAST MATERIAL: Noncontrast COMPARISON: CR XR KNEE 1-2 VIEWS RIGHT (GENERIC) from 05/22/2023 CR XR FEMUR 2 VIEWS RIGHT (GENERIC) from 05/22/2023 DX XR KNEE 1-2 VIEWS RIGHT (GENERIC) from 08/21/2023 FINDINGS: Bones: There is a fixation plate along the lateral aspect of the distal femur. There is cement in pl karel in the lateral femoral condyle. There is significant surrounding lucency around the cement exten ding both inferiorly and superiorly and to the area of cement. The findings are on consistent with r ecurrence. There is expansion and some cortical breakthrough noted anteriorly at and above the level of the lateral femoral condyle. Cortical thinning and an breakthrough is also noted at the posterio r aspect of the lateral femoral condyle. Joints: There is no significant joint space narrowing. No significant periarticular spurring. No v isible joint effusion. Soft Tissues: Anterolateral scar. IMPRESSION: Expansile lucency with cortical thinning and breakthrough seen in the distal femur and lateral femora l condyle surrounding the area of cement. Findings consistent with recurrence of giant cell tumor. RADIATION DOSE DELIVERED: 326.01mGy.cm Total DLP DATA REPOSITORY: All CT scans at this facility are submitted to the National Radiology Data Registry (NRDR) Dose Index Registry (DIR) with the [employer] (A[employer]). RADIATION OPTIMIZATION: All CT scans at this facility use at least one of these dose optimization te chniques: automated exposure control; mA and/or kV adjustment per patient size (includes targeted exa ms where dose is matched to clinical indication); or iterative reconstruction.
== END ==
PROVIDERS: PCP Internal Medicine; Visit Provider Physician Assistant
DX: D48.0 Neoplasm of uncertain behavior of bone and articular cartilage (principal)
CPT/HCPCS: 73700

== ENCOUNTER → 2023-11-21 01:05 | Outpatient (CLI) | payer MEDICAID, SELFPAY ==
--- NOTE | 2023-11-21 | DI.RAD_ITS ---
Exam(s) XR FEMUR RT EXAM: XR FEMUR RT CLINICAL HISTORY: GIANT CELL TUMOR OF BONE,d48.0,S/P EXCISION AND DORIS,INCREASED PAIN. TECHNIQUE: 2D digital imaging was performed. COMPARISON: CR XR KNEE 1-2 VIEWS RIGHT (GENERIC) from 05/22/2023 DX XR KNEE 1-2 VIEWS RIGHT (GENERIC) from 08/21/[address] LOWER EXTREMITY RT WO from 09/07/2023 FINDINGS: Two views Again noted is a fixation plate along the lateral aspect of the distal femur without evidence of hard ayers fracture nor loosening nor evidence of osteomyelitis. Hardware appearance is radiographically unchanged from 08/21/2023 however, there has been interval fu rther surgery with placement of additional intraosseous radiopaque material which now fills the previ ously described lucent see in the bone above the level of the previous cement interface. The area of lucency in the lateral femoral condyle appears somewhat increased from 08/21/2023 and 05/22/2023 IMPRESSION: As above. Recommend repeat CT scan for more accurate comparison to the CT scan of 09/07/2023 DATA REPOSITORY: RADIATION DOSE DELIVERED:
== END ==
PROVIDERS: PCP Internal Medicine; Visit Provider Orthopaedic Surgery
DX: D48.0 Neoplasm of uncertain behavior of bone and articular cartilage (principal)
CPT/HCPCS: 73552

== ENCOUNTER 2024-01-14 04:27 | Outpatient (CLI) | payer MEDICAID, SELFPAY ==
[2024-01-14 15:16] LABS: HCG Quant, Pregnancy 1 mIU/mL (1-3); TSH (W/Ref FT4) 1.37 uIU/mL (0.36-3.74)
[2024-01-14 22:22] LABS: Estradiol 45 pg/mL (See Note)
[2024-01-14 22:29] LABS: Prolactin 20.1 ng/mL (See Note)
[2024-01-14 22:33] LABS: FSH 8.7 mIU/mL (See Note)
[2024-01-20 10:01] LABS: Testosterone, Free 1.05 ng/dL (<0.13-1.08); Testosterone, Total 29 ng/dL (8-60)
== END 2024-01-14 04:28 | disposition home or self-care (01) ==
LOC: LBO 04:27
PROVIDERS: Visit Provider Obstetrics & Gynecology
DX: O26.859 Spotting complicating pregnancy, unspecified trimester (principal); N91.2 Amenorrhea, unspecified; N92.0 Excessive and frequent menstruation with regular cycle; N92.6 Irregular menstruation, unspecified; L68.9 Hypertrichosis, unspecified
CPT/HCPCS: 36415; 84402; 84403; 82670; 83001; 84146; 84443; 84702

== ENCOUNTER 2024-01-23 02:02 | Outpatient (CLI) | payer MEDICAID, SELFPAY ==
--- NOTE | 2024-01-23 07:00 | DI.US_ITS ---
Exam(s) US PELVIS TRANSVAGINAL EXAM: US PELVIS TRANSVAGINAL CLINICAL HISTORY: amenorrhea,n91.2. TECHNIQUE: Transabdominal and transvaginal pelvic ultrasound was performed using standard protocol. COMPARISON: No exams were available for comparison FINDINGS: UTERUS: Position: Anteverted. Size: 0.3 long by 3.3 AP by 4.2 transverse cm Endometrium: 0.7 cm. Two medium has a normal appearance. Myometrium: Unremarkable. Cervix: Unremarkable. OVARIES: Right: 2.8 x 1.3 x 2.0 cm Cyst or mass: No suspicious cystic or solid masses. Left: 2.3 x 1.4 x 2.1 cm Cyst or mass: No suspicious cystic or solid masses. DOPPLER: Color: Symmetric and uniform flow to both ovaries. CUL-DE-SAC: Free fluid: None. Other: None. IMPRESSION: 1. Normal-appearing uterus with endometrial stripe within normal limits. 2. Unremarkable bilateral ovaries. DATA REPOSITORY:
== END 2024-01-23 02:22 ==
LOC: DI 02:02
PROVIDERS: Visit Provider Obstetrics & Gynecology
DX: N91.2 Amenorrhea, unspecified (principal)
CPT/HCPCS: 76830; 76856

== ENCOUNTER 2024-05-19 01:34 | Outpatient (CLI) | payer MEDICAID, SELFPAY ==
--- NOTE | 2024-05-19 14:09 | DI.RAD_ITS ---
Exam(s) XR FEMUR RT EXAM: XR FEMUR RT CLINICAL HISTORY: GIANT CELL TUMOR OF BONE D48.0 RT DISTAL FEMORAL GIANT CELL TUMOR. TECHNIQUE: 2D digital imaging was performed. AP and lateral views. COMPARISON: DX XR KNEE 1-2 VIEWS RIGHT (GENERIC) from 08/21/2023 CR XR FEMUR RT from 11/21/2023 FINDINGS: BONES: No change in positioning of distal femoral fixation plate. Stable appearance high density mat erial within the femoral condyles. No surrounding lucencies are visible. No acute fracture is prese nt. No bony destructive lesion is seen. JOINTS: Visualized portion of knee and hip joints are unremarkable. SOFT TISSUE: Normal. IMPRESSION: Stable appearance. No new findings. DATA REPOSITORY: RADIATION DOSE DELIVERED:
== END 2024-05-19 01:54 ==
LOC: DI 01:34
PROVIDERS: PCP Nurse Practitioner Family; Visit Provider Physician Assistant
DX: D48.0 Neoplasm of uncertain behavior of bone and articular cartilage (principal)
CPT/HCPCS: 73552

== ENCOUNTER 2024-08-04 02:12 | Outpatient (CLI) | payer MEDICAID, SELFPAY ==
--- NOTE | 2024-08-04 09:57 | DI.RAD_ITS ---
Exam(s) XR FEMUR RT EXAM: XR FEMUR RT CLINICAL HISTORY: F/U GIANT CELL TUMOR OF BONE, D48.0,S/P CURETTAGE AND BONE GRAFTING. TECHNIQUE: 2D digital imaging was performed. AP and lateral views. COMPARISON: DX XR KNEE 1-2 VIEWS RIGHT (GENERIC) from 08/21/2023 CR XR FEMUR RT from 11/21/2023 CR XR FEMUR RT from 05/19/2024 FINDINGS: BONES: No acute fracture is present. The fixation plate along the distal femur isn't changed in ali nment. High-density cement is again noted in the distal femur. No abnormal surrounding lucency. JOINTS: Visualized portion of knee and hip joints are unremarkable. SOFT TISSUE: Normal. IMPRESSION: Stable appearance distal femoral hardware and cement. DATA REPOSITORY: RADIATION DOSE DELIVERED:
== END 2024-08-04 02:32 ==
LOC: DI 02:12
PROVIDERS: PCP Nurse Practitioner Family; Visit Provider Physician Assistant
DX: D48.0 Neoplasm of uncertain behavior of bone and articular cartilage (principal)
CPT/HCPCS: 73552

== ENCOUNTER 2024-09-17 03:03 | Outpatient (CLI) | payer MEDICAID, SELFPAY ==
--- NOTE | 2024-09-17 15:11 | W.NUTRFU ---
Date of service: 09/17/24 Time of Service: 14:00 Nutrition Note NOTE: Radha referred to today's nutrition visit to support her goals for weight mgt and also to fulfill requirement for monthly nutrition visits leading up to bariatric surgery, which she is moving forward with at this time. We plan to have a minimum of 3 monthly visits to review recommended changes with eating habits and food choices, as well as other factors that may impact her weight loss goals. Radha weight on office scale at visit today with starting weight of 341lbs/155kg (with light boots and clothes/light sweater on). With a height of 65, this weight correlates to a BMI of 56.7. Radha currently does not take any nutrition supplements. She reports no known food allergies/intolerances. We discussed sleep and its influence on weight. Radha wakes around 5am most mornings and goes to bed around 9-10pm most nights. She reports good quality sleep. We discussed stress mgt as another influencer on weight. Radha has two toddlers at home and a busy schedule. She identifies that she may need some work in this area. We discussed exercise. Radha had surgery on both legs about a year ago and was sedentary for quite some time due to limitations/pain. She states she has been cleared for exercise at this time. She relates she has increased her activity with the animals at home (has horses, ducks), putting up fencing, etc...and is always busy with her children. We discussed baseline of activity is important but also intentional exercise is a big important piece in regards to weight mgt. Encouraged her to consider more scheduled types of exercise, especially strength training to help with improvement of insulin resistance. She will consider. Typical diet: We discussed pattern of eating currently for Radha. She shares she did not come from a family that is in to cooking so she likes to keep it simple and doesn't get into elaborate meals. She admits she has sort of a disorganized pattern of eating currently. She will have a muffin and a refresher drink at [facility] most mornings. We looked this up and discovered a medium refresher has ~27g added sugar - and the muffin will only add to this number. We reviewed goal of limiting added sugar to ~24 grams per day. She may have something like a turkey sandwich for lunch but shares she is bad at packing stuff for work and will often find herself snacking instead. Dinner is usually consistent with meat protein, starch and veggie. She does share that she has ice cream most nights and many times additional evening snacks. We reviewed beverages/drinks she usually has. She drinks mostly water (primarily through [employer] bottle with art sweetener. She states she doesn't drink a ton of soda but may have some root beer occasionally. She does not like juice. Reviewed with Radha that initial assessment reveals that her usual diet is most likely low in fiber and high in added sugar and refined starch choices. Depending on her meat portions at dinner, she might be on the low end of protein intake many days as well. As part of trying to reduce added sugar and increase fiber and lean protein, we reviewed menu planning strategy using AI resource and I gave her the info to plug in for menu planning based off of initial assessment of energy needs/recommendations: ~2400kcals per day, 240g total carb (with goal of 35 g fiber daily as a minimum and limiting added sugars to 24 grms per day), 180g protein (with a significant amount coming more from plant sources), and ~80g total fat. She will work with revising menus with these goals to come up with menus she might see herself following more. But immediate goals are to lower added sugar by skipping take out for breakfast and substitute with something quick like HC eggs and oats with berries and nuts ( can do over night oats if not into cooking it). We arranged a follow up appt for next month and we will follow up then on how her progress is going. Pt advised to take multivitamin/mineral for support as well as 2000IU vitamin D3. She has my contact info to reach out with any questions or need for further resources before our next visit. Time Spent in Nutritional Counseling and Treatment: 25 min
== END 2024-09-17 03:04 | disposition home or self-care (01) ==
LOC: DS 03:03
PROVIDERS: PCP Nurse Practitioner Family; Visit Provider Dietitian, Registered
DX: E66.9 Obesity, unspecified (principal)
CPT/HCPCS: 00123; 97802

== ENCOUNTER 2025-01-22 16:11 | Outpatient (REF) | payer MEDICAID, SELFPAY ==
--- NOTE | 2025-01-22 14:10 | PAPFT_PTH ---
PATIENT: Radha Edmondson LOC: [facility] U#:[id number] AGE/SX: 24/F ROOM: RE01/22/[address]: Josefina Myers MD : 2000 BED: DIS: 01/22/2025 SPEC #: [id number] RECD: 01/22/25 17:20 STATUS: MARY REOmayra #: [id number] JOVANY: 01/22/25 14:[address]: Josefina Myers DEPT: [facility] Cytology RECD BY: Lupe Awad ENTERED: 01/22/25 17:20 SP TYPE: PAPFT OTHR DR: LYDIA Carreon Tissues: 1 - CX/ENDOCX FOR PAP SMEARS Procedures: PAP THIN PREP/[facility] Screening Comments: [id number]
--- NOTE | 2025-01-22 14:10 | ENDOMET_PTH ---
PATIENT: Radha Edmondson LOC: [facility] U#:[id number] AGE/SX: 24/F ROOM: RE01/22/[address]: Josefina Myers MD : 2000 BED: DIS: 01/22/2025 SPEC #: [id number] RECD: 01/22/25 17:00 STATUS: MARY REOmayra #: [id number] JOVANY: 01/22/25 14:[address]: Josefina Myers DEPT: Surgical Specimen RECD BY: Lupe Awad ENTERED: 01/22/25 17:00 SP TYPE: Endomet OTHR DR: LYDIA Carreon Tissues: 1 - ENDOMETRIUM BX/CURRETTE Procedures: GROSS AND MICRO LEVEL 4 Comments: [id number]
== END 2025-01-22 16:12 | disposition home or self-care (01) ==
LOC: LBN 16:11
PROVIDERS: PCP Nurse Practitioner Family; Visit Provider Obstetrics & Gynecology
DX: N91.1 Secondary amenorrhea
CPT/HCPCS: 88142; 88305; 87624

== ENCOUNTER → 2025-03-02 02:21 | Outpatient (CLI) | payer MEDICAID, SELFPAY ==
--- NOTE | 2025-03-02 | DI.RAD_ITS ---
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 TECHNIQUE: 2D digital imaging was performed. Images were obtained. AP, lateral and oblique views were obtained. COMPARISON: CR XR FEMUR RT from 08/04/2024 FINDINGS: BONES: There are stable post operative changes present. There is a sideplate and screws and cement seen in the distal femur. No new fracture or dislocation. JOINTS: The joint spaces are well maintained. SOFT TISSUE: Normal. IMPRESSION: Stable postoperative changes. DATA REPOSITORY: RADIATION DOSE DELIVERED:
== END ==
LOC: DI 02:21
PROVIDERS: PCP Nurse Practitioner Family; Visit Provider Physician Assistant
DX: D48.0 Neoplasm of uncertain behavior of bone and articular cartilage (principal)
CPT/HCPCS: 73552

== ENCOUNTER 2025-04-06 01:28 | Outpatient (CLI) | payer MEDICAID, SELFPAY ==
[2025-04-06 15:59] LABS: HCT 41.2 % (36.0-46.0); HGB 13.2 g/dL (11.2-15.7); MCH 27.8 pg (27.0-33.0); MCHC 32.0 % (32.0-36.0); MCV 87 fL (80-95); MPV 10.0 fL (8.0-11.0); Platelet Count 297 10^3/uL (130-400); RBC 4.75 10^6/uL (3.93-5.22); RDW 14.3 % (11.7-14.6); RDW-SD 45.5 fL; WBC 8.40 10^3/uL (4.4-10.8)
[2025-04-06 16:17] LABS: Hemoglobin A1C 5.3 % (<5.7)
[2025-04-06 16:52] LABS: ALT 33 U/L (10-49); AST 20 U/L (<34); Albumin 4.4 g/dL (3.2-5.0); Alkaline Phosphatase 80 U/L (46-116); Anion Gap 9.4 mmol/L (3-11); BUN 12 mg/dL (9-23); Bilirubin, Total 0.20 mg/dL (0.2-1.2); CO2 24.6 mmol/L (20.0-31.0); Calcium 9.2 mg/dL (8.3-10.6); Chloride 108 mmol/L (98-107); Cholesterol 148 mg/dL (<200); Glucose 94 mg/dL (74-106); HDL Cholesterol 47 mg/dL (>40); Potassium 4.1 mmol/L (3.5-5.1); Sodium 142 mmol/L (136-145); Total Protein 7.2 g/dL (5.7-8.2)
[2025-04-06 16:55] LABS: TSH 2.34 uIU/mL (0.55-4.78)
== END 2025-04-06 01:29 | disposition home or self-care (01) ==
PROVIDERS: PCP Nurse Practitioner Family; Visit Provider Nurse Practitioner Family
DX: Z76.89 Persons encountering health services in other specified circumstances (principal); Z01.818 Encounter for other preprocedural examination; E66.9 Obesity, unspecified
CPT/HCPCS: 36415; 80053; 80061; 85027; 83036; 84443